=== PATIENT | male | born 1950 | race Caucasian/White ===

== ENCOUNTER → 2016-07-03 | Outpatient (REF) | payer MEDICARE, OTHER ==
[~2016-07-03] MED LIST: BENI20TA5 PO; LIPI10TA PO; METF1000 PO; PERCOCET PO; PROT1TAB2 PO
[2016-07-03 19:47] LABS: BLOOD UREA NITROGEN 17 MG/DL (7-18); CREATININE FOR GFR 0.91 MG/DL (0.70-1.30); GLOMERULAR FILTRATION RATE > 60.0 (>49)
== END ==
LOC: M LABDRAW1 16:30
PROVIDERS: ATTEND Orthopaedic Surgery
DX: M65.812 Other synovitis and tenosynovitis, left shoulder (principal)

== ENCOUNTER 2016-08-07 21:58 | Emergency (ER) | payer MEDICARE, BC, OTHER ==
[2016-08-07 23:02] LABS: BASO % 0.3 % (0.0-1.0); EOS # 0.3 K/mm3 (0.0-0.50); LARGE UNSTAINED CELL # 0.1 K/mm3 (0.0-0.4); LARGE UNSTAINED CELL % 1.2 % (0.0-4.0); LYMPH # 1.9 K/mm3 (1.5-4.5); LYMPH % 18.8 % (24.0-44.0); MEAN CORPUSCULAR HEMOGLOBIN 30.9 pg (27.0-33.0); MEAN CORPUSCULAR HGB CONC 33.7 g/dl (32.0-36.5); MEAN CORPUSCULAR VOLUME 91.7 fl (80.0-96.0); MONO # 0.6 K/mm3 (0.0-0.8); MONO % 6.8 % (0.0-5.0); NEUTROPHILS # 6.5 K/mm3 (1.8-7.7); NEUTROPHILS % 69.8 % (36.0-66.0); PLATELET COUNT, AUTOMATED 286 k/mm3 (150-450); RED CELL DISTRIBUTION WIDTH 12.4 % (11.5-14.5); WHITE BLOOD COUNT 9.3 K/mm3 (4.0-10.0)
[2016-08-07 23:33] LABS: ANION GAP 9 MEQ/L (8-16); BLOOD UREA NITROGEN 14 MG/DL (7-18); CARBON DIOXIDE LEVEL 28 MEQ/L (21-32); CHLORIDE LEVEL 103 MEQ/L (98-107); CREATININE FOR GFR 0.98 MG/DL (0.70-1.30); GLOMERULAR FILTRATION RATE > 60.0 (>49); GLUCOSE, FASTING 103 MG/DL (80-110); POTASSIUM SERUM 4.3 MEQ/L (3.5-5.1); SODIUM LEVEL 140 MEQ/L (136-145)
[2016-08-07] MEDS ORDERED: ISOVUE-370 76% 100ML VIAL (Q9967) As Ordered ONE (23:45)
--- NOTE | 2016-08-08 00:20 | REPUSA ---
CT angiogram of the chest Clinical statement: Chest pain. Technique: Multiple axial CT images were obtained from the thoracic inlet through the upper abdomen a fter a bolus administration of nonionic intravenous contrast. Coronal and sagittal reconstructions we re also obtained. Comparison: none. Findings: The pulmonary arteries are well-opacified with contrast, with no intraluminal filling defec ts to suggest embolism. The thoracic aorta is unremarkable. Thyroid gland is within normal limits. Th ere is an enlarged lymph node in the upper left mediastinum measuring 1.6 x 1.4 cm. Several other sub centimeter lymph nodes are seen within the mediastinum. There are no pericardial or pleural effusions . Minimal interstitial infiltrates are seen at the lung bases bilaterally. Limited imaging of the upp er abdomen is unremarkable. There are no suspicious osseous lesions. Impression: 1. No evidence of pulmonary embolism. 2. Minimal interstitial infiltrates in the lung bases bilaterally, likely representing atelectasis. F ollow-up is recommended as clinically indicated. 3. Single borderline enlarged lymph node in the upper left mediastinum. No other thoracic adenopathy noted. This is a nonspecific finding.
--- NOTE | 2016-08-08 00:30 | REPUSA ---
CT of the abdomen and pelvis with contrast Clinical statement: Pain. Technique: Multiple axial CT images were obtained from the base of the lungs through the floor of the pelvis utilizing 5 mm axial slices after administration of nonionic intravenous contrast. Coronal an d sagittal reconstructions were also obtained. Comparison: 08/10/2014. Findings: Abdomen: The spleen, pancreas, kidneys, gallbladder, and adrenal glands are unremarkable. There is an ill-defined early enhancing focus in the anterior left lobe of the liver, measuring approximately 2. 1 x 2.3 cm. This most likely represents a hemangioma. Borderline enlarged upper abdominal lymph nodes are noted. For example, a portocaval lymph node measures 3.2 x 2.1 cm. A portahepatic lymph node bhumika sures 2.1 x 1.5 cm. The aorta demonstrates moderate soft tissue plaque, without evidence of aneurysm or dissection. There is no evidence of abdominal ascites. There is a periumbilical hernia noted, cont aining only omental fat. Pelvis: The bowel is unremarkable, with no obstructive or inflammatory changes. The urinary bladder i s within normal limits. The other pelvic structures appear grossly intact. There is no evidence of pe lvic lymphadenopathy or ascites. Bones: There are no suspicious osseous abnormalities seen. Impression: 1. No acute findings to explain the patient's pain. 2. Ill-defined early enhancing lesion in the anterior left lobe of the liver, likely representing a c avernous hemangioma. This is stable since the prior study. If there is further clinical concern, ultr asound could be performed. 3. Enlarged portocaval and portahepatic lymph node as described. This is of uncertain clinical signif icance. Follow-up is recommended as clinically indicated. 4. Mild to moderate atherosclerotic changes of the abdominal aorta. 5. Moderate sized periumbilical hernia containing only omental fat. 6. Overall, no significant interval change.
--- NOTE | 2016-08-08 03:32 | EDDOCDS ---
Nurse's Notes [facility] Name: Oz Serrano Age: 65 yrs Sex: Male : 1950 Arrival Date: 08/07/2016 Time: 21:58 Bed 6 Private MD: Iglesia Villatoro MD Diagnosis: Orthostatic hypotension Presentation: 08/07 22:05 Presenting complaint: Patient states: he feels weird, has chest congestion and nn1 tightness. States he felt like he was going to pass out earlier. Reports intermittent tingling of bilateral hands. Reports cold symptoms x 1 week. Aspirin was not taken prior to arrival. Adult Sepsis Screening: The patient does not have new or worsening altered mentation. Patient's respiratory rate is less than 22. Systolic blood pressure is greater than 100. Patient has a qSOFA score of 0- Negative Sepsis Screen. Suicide/Homicide risk assessment- the patient denies having any suicidal and/or homicidal ideations and does not present with any other emotional, behavioral or mental health complaints. Status: Patient is not a service desk lead or dependent. Transition of care: patient was not received from another setting of care. 22:05 Acuity: HELLEN Level 2 nn1 22:05 Method Of Arrival: Walkin/Carried/Asstd nn1 Triage Assessment: 22:10 General: Appears in no apparent distress, comfortable. Pain: Location: mid-sternal area nn1 Pain currently is 1 out of 10 on a pain scale. Quality of pain is described as tightness Pain began 30 min ago Is intermittent. Neurological: Level of Consciousness is awake, alert, obeys commands, Oriented to person, place, time. Cardiovascular: Chest pain is described as mild, radiates Does not radiate. episodes are intermittent began 2129. Respiratory: Airway is patent Respiratory effort is even, unlabored, Respiratory pattern is regular, symmetrical. Derm: Skin is pink, warm & dry. Historical: - Allergies: BLEOMYCINS; Bees; - Home Meds: 1. metformin 500 mg Oral Tb24 4 tabs once daily 2. losartan 50 mg oral tab 1 tab once daily 3. pantoprazole 40 mg oral TbEC 1 tab once daily 4. atorvastatin 10 mg oral tab 1 tab once daily - PMHx: Diabetes - NIDDM: controlled; Hypertension; Hypercholesterolemia; Cancer, Colon; Cancer, Prostate; Hodgkin's Lymphoma; Cancer, Skin; GERD; - PSHx: Colon Resection; Prostatectomy; right testicle removed; - Social history: Smoking status: Patient states was never smoker of tobacco. No barriers to communication noted, The patient speaks fluent Turkish, Speaks appropriately for age. - Family history: No immediate family members are acutely ill. - : The pt / caregiver states he / she is not on anticoagulants. Home medication list is obtained from the patient. - Exposure Risk Screening:: None identified. Screenin:11 Screening information is obtained from the patient. Fall risk: No risks identified. nn1 Assistance ADL's: requires no assistance with activities of daily living. Abuse/DV Screen: The patient / caregiver reports he/she is: not in a situation that causes fear, pain or injury. Nutritional screening: No deficits noted. Advance Directives: Currently, there is no health care proxy. There is no active DNR order. There is no living will. home support is adequate. Assessment: 22:21 General: Appears in no apparent distress, comfortable, Behavior is appropriate for age, nn1 cooperative. Pain: Location: mid-sternal area Pain currently is 1 out of 10 on a pain scale. Neurological: Level of Consciousness is awake, alert, obeys commands, Oriented to person, place, time, Moves all extremities. Gait is steady, Speech is normal, Facial symmetry appears normal. Cardiovascular: Capillary refill < 3 seconds Heart tones S1 S2 present Rhythm is sinus rhythm No ectopy. Respiratory: Airway is patent Respiratory effort is even, unlabored, Respiratory pattern is regular, symmetrical, Breath sounds are clear bilaterally. GI: Abdomen is non- distended Bowel sounds present X 4 quads. Abd is soft and non tender X 4 quads. Denies nausea, vomiting. Derm: Skin is pink, warm & dry. 23:19 General: Dr. Palafox aware that patient is orthostatic. . nn1 08/08 00:32 General: Appears in no apparent distress, comfortable, Behavior is appropriate for age, nn1 cooperative. Neurological: Level of Consciousness is awake, alert, obeys commands, Oriented to person, place, time. Respiratory: Airway is patent Respiratory effort is even, unlabored, Respiratory pattern is regular, symmetrical. Derm: Skin is pink, warm & dry. 01:06 Reassessment: Patient appears in no apparent distress at this time. Patient denies pain nn1 at this time. 01:42 General: Appears in no apparent distress, comfortable, Behavior is appropriate for age, nn1 cooperative. Neurological: Level of Consciousness is awake, alert, obeys commands, Oriented to person, place, time. Respiratory: Airway is patent Respiratory effort is even, unlabored, Respiratory pattern is regular, symmetrical. Derm: Skin is pink, warm & dry. 01:52 General: Patient aware of plan of care at this time, second liter of LR infusing. . nn1 02:23 General: Appears in no apparent distress, comfortable, Behavior is appropriate for age, nn1 cooperative. Pain: Denies pain. Neurological: Level of Consciousness is awake, alert, obeys commands, Oriented to person, place, time. 03:31 General: Appears in no apparent distress, comfortable, Behavior is appropriate for age, nn1 cooperative. Pain: Denies pain. Neurological: Level of Consciousness is awake, alert, obeys commands. Respiratory: Airway is patent Respiratory effort is even, unlabored, Respiratory pattern is regular, symmetrical. Derm: Skin is pink, warm & dry. Vital Signs: 08/07 22:00 BP 195 / 105; Pulse 97; Resp 20; Temp 96.5(O); Pulse Ox 99% on R/A; Weight 90.72 kg kb5 (R); Height 5 ft. 7 in. (170.18 cm); Pain 0/10; 23:18 BP 167 / 84 LA Supine (auto/reg); Pulse 76; nn1 23:18 BP 162 / 95 LA Sitting (auto/reg); Pulse 78; nn1 23:18 BP 142 / 91 LA Standing (auto/reg); Pulse 107; nn1 02 01:41 BP 142 / 81 LA Supine (auto/reg); Pulse 72; nn1 01:41 BP 136 / 86 LA Sitting (auto/reg); Pulse 83; nn1 01:41 BP 123 / 78 LA Standing (auto/reg); Pulse 100; Resp 18; Pulse Ox 97% on R/A; nn1 02:22 Resp 18; Temp 98(TE); nn1 03:20 BP 166 / 84; Pulse 72; Resp 18; Temp 97.2(TE); Pulse Ox 97% on R/A; Pain 0/10; kb5 08/07 22:00 Body Mass Index 31.32 (90.72 kg, 170.18 cm) kb5 Vitals: 08/07 22:00 Log In Time: August 07, 2016 at 21:50. kb5 22:00 RN notified that patient meets Red Flag criteria. kb5 ED Course: 21:59 Patient visited by Cristopher Dickey PCA. kb5 21:59 Patient moved to Waiting kb5 22:00 Iglesia Villatoro is Private Physician. kb5 22:06 Triage Initiated nn1 22:11 Deborah Tejeda RN is Primary Nurse. nn1 22:11 Amada Child RN is Primary Nurse. nn1 22:11 Patient moved to 6 nn1 22:18 Luciano Palafox DO is Attending Physician. mm11 22:18 Patient visited by Luciano Palafox DO. 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 Pulse ox on. NIBP on. nn1 22:43 Patient visited by Manfred Casillas PCA. jmv 22:43 EKG done. (by ED staff). Reviewed by Luciano Palafox DO. jmv 23:01 Inserted saline lock: 20 gauge in left antecubital area and blood collected. The nn1 patient tolerated the procedure well. 23:09 Patient visited by Luciano Palafox DO. mm11 23:15 [facility] Payment Agreement was scanned into [employer] and attached to record. zo 23:22 Patient visited by Siria Domingo RN. nn1 0221 00:32 Patient visited by Siria Domingo RN. nn1 00:41 CT Chest Angio R/O PE Returned. EDMS 00:41 CT ABD & PELVIS: IV Contrast Only Returned. EDMS 00:46 Primary Nurse role handed off by Deborah Tejeda RN sls1 01:06 Patient visited by Siria Domingo RN. nn1 01:37 Patient visited by Luciano Palafox DO. mm11 02:21 CARDIAC MARKER PANEL Sent. nn1 02:23 Patient visited by Siria Domingo RN. nn1 02:25 Patient visited by Manfred Casillas PCA. jmv 02:25 EKG done. (by ED staff). Reviewed by Luciano Palafox DO. jmv 03:02 Patient visited by Luciano Palafox DO. mm11 03:07 Iglesia Villatoro is Referral Physician. mm11 03:20 Patient visited by Cristopher Dickey PCA. kb5 03:31 The patient / caregiver is instructed regarding the plan of care and ED course. nn1 03:31 No procedures done that require assistance. nn1 Administered Medications: 08/07 23:23 Drug: LR 1000 ml [lactated ringers intravenous solution] Route: IV; Rate: bolus; Site: nn1 left antecubital; 08/08 01:50 Drug: LR 1000 ml [lactated ringers intravenous solution] Route: IV; Rate: bolus; Site: nn1 left antecubital; Intake: 03:30 IV: 1800.00ml (LR); Total: 1800.00ml. nn1 Output: 00:32 Urine: 450.00ml (Voided); Total: 450.00ml. nn1 01:52 Urine: 600.00ml (Voided); Total: 1050.00ml. nn1 Order Results: Lab Order: Basic Metabolic Profile; [facility]' 08/07/16 22:55 Test: GLUCOSE, FASTING; Value: 103; Range: 80-110; Units: MG/DL; Status: F Test: BLOOD UREA NITROGEN; Value: 14; Range: 7-18; Units: MG/DL; Status: F Test: CREATININE FOR GFR; Value: 0.98; Range: 0.70-1.30; Units: MG/DL; Status: F Test: GLOMERULAR FILTRATION RATE; Value: > 60.0; Range: >49; Status: F Test: SODIUM LEVEL; Value: 140; Range: 136-145; Units: MEQ/L; Status: F Test: POTASSIUM SERUM; Value: 4.3; Range: 3.5-5.1; Units: MEQ/L; Status: F Test: CHLORIDE LEVEL; Value: 103; Range: 98-107; Units: MEQ/L; Status: F Test: CARBON DIOXIDE LEVEL; Value: 28; Range: 21-32; Units: MEQ/L; Status: F Test: ANION GAP; Value: 9; Range: 8-16; Units: MEQ/L; Status: F Test: CALCIUM LEVEL; Value: 9.0; Range: 8.8-10.2; Units: MG/DL; Status: F Test Note: ; Units are mL/min/1.73 m2 Chronic Kidney Disease Staging per NKF: Stage I & II GFR >=60 Normal to Mildly Decreased Stage III GFR 30-59 Moderately Decreased Stage IV GFR 15-29 Severely Decreased Stage V GFR <15 Very Little GFR Left ESRD GFR <15 on SCIENTIFIC DATABASE CURATOR Lab Order: CBC with Diff; [facility]IA[facility] 08/07/16 22:55 Test: WHITE BLOOD COUNT; Value: 9.3; Range: 4.0-10.0; Units: K/mm3; Status: F Test: RED BLOOD COUNT; Value: 4.59; Range: 4.30-6.10; Units: M/mm3; Status: F Test: HEMOGLOBIN; Value: 14.2; Range: 14.0-18.0; Units: g/dl; Status: F Test: HEMATOCRIT; Value: 42.1; Range: 42.0-52.0; Units: %; Status: F Test: MEAN CORPUSCULAR VOLUME; Value: 91.7; Range: 80.0-96.0; Units: fl; Status: F Test: MEAN CORPUSCULAR HEMOGLOBIN; Value: 30.9; Range: 27.0-33.0; Units: pg; Status: F Test: MEAN CORPUSCULAR HGB CONC; Value: 33.7; Range: 32.0-36.5; Units: g/dl; Status: F Test: RED CELL DISTRIBUTION WIDTH; Value: 12.4; Range: 11.5-14.5; Units: %; Status: F Test: PLATELET COUNT, AUTOMATED; Value: 286; Range: 150-450; Units: k/mm3; Status: F Test: NEUTROPHILS %; Value: 69.8; Range: 36.0-66.0; Abnormal: Above high normal; Units: %; Status: F Test: LYMPH %; Value: 18.8; Range: 24.0-44.0; Abnormal: Below low normal; Units: %; Status: F Test: MONO %; Value: 6.8; Range: 0.0-5.0; Abnormal: Above high normal; Units: %; Status: F Test: EOS %; Value: 3.0; Range: 0.0-3.0; Units: %; Status: F Test: BASO %; Value: 0.3; Range: 0.0-1.0; Units: %; Status: F Test: LARGE UNSTAINED CELL %; Value: 1.2; Range: 0.0-4.0; Units: %; Status: F Test: NEUTROPHILS #; Value: 6.5; Range: 1.8-7.7; Units: K/mm3; Status: F Test: LYMPH #; Value: 1.9; Range: 1.5-4.5; Units: K/mm3; Status: F Test: MONO #; Value: 0.6; Range: 0.0-0.8; Units: K/mm3; Status: F Test: EOS #; Value: 0.3; Range: 0.0-0.50; Units: K/mm3; Status: F Test: BASO #; Value: 0.0; Range: 0.0-0.2; Units: K/mm3; Status: F Test: LARGE UNSTAINED CELL #; Value: 0.1; Range: 0.0-0.4; Units: K/mm3; Status: F Lab Order: Cardiac Injury Profile; SPEC'M 08/07/16 22:55 Test: CPK CREATINE PHOSPHOKINASE; Value: 52; Range: 39-308; Units: U/L; Status: F Test: CK-MB VALUE MASS; Value: 1.0; Range: 0.0-3.6; Units: NG/ML; Status: F Test: MB/CK RELATIVE INDEX; Value: 1.92; Range: < OR =4; Status: F Test Note: ; DIAGNOSIS CRITERIA MMB ng/ml Relative Index (RI) NON-AMI < or = 5 N/A CONDE ZONE > 5 < or = 4 AMI > 5 > 4 Lab Order: Troponin; SPEC'M 08/07/16 22:55 Test: TROPONIN I; Value: < 0.02; Range: < 0.10; Units: NG/ML; Status: F Test Note: ; Troponin I Reference Interval for [employer] LOCI: 99th Percentile= 0.00-0.045 ng/ml Risk Stratification: <= 0.10 ng/ml Decreased Risk for Adverse Clinical Events. 0.10-1.50 ng/ml Increased Risk for Adverse Clinical Events. Evaluation of additional criterion and/or repeat testing in 2-6 hours is suggested to rule out myocardial damage. >= 1.50 ng/ml Indicative of Myocardial Injury. Lab Order: CARDIAC MARKER PANEL; SPEC'M 08/08/16 02:20 Test: CPK CREATINE PHOSPHOKINASE; Value: 45; Range: 39-308; Units: U/L; Status: F Test: CK-MB VALUE MASS; Value: 1.0; Range: 0.0-3.6; Units: NG/ML; Status: F Test: MB/CK RELATIVE INDEX; Value: 2.22; Range: < OR =4; Status: F Test: TROPONIN I; Value: < 0.02; Range: < 0.10; Units: NG/ML; Status: F Test Note: ; DIAGNOSIS CRITERIA MMB ng/ml Relative Index (RI) NON-AMI < or = 5 N/A CONDE ZONE > 5 < or = 4 AMI > 5 > 4 Radiology Order: CT Chest Angio R/O PE Test: CT Chest Angio R/O PE REASON FOR EXAMINATION: Chest Pain; ; CT angiogram of the chest; Clinical statement: Chest pain.; Technique: Multiple axial CT images were obtained from the thoracic inlet through the upper abdomen a; fter a bolus administration of nonionic intravenous contrast. Coronal and sagittal reconstructions we; re also obtained.; Comparison: none.; Findings: The pulmonary arteries are well-opacified with contrast, with no intraluminal filling defec; ts to suggest embolism. The thoracic aorta is unremarkable. Thyroid gland is within normal limits. Th; ere is an enlarged lymph node in the upper left mediastinum measuring 1.6 x 1.4 cm. Several other sub; centimeter lymph nodes are seen within the mediastinum. There are no pericardial or pleural effusions; . Minimal interstitial infiltrates are seen at the lung bases bilaterally. Limited imaging of the upp; er abdomen is unremarkable. There are no suspicious osseous lesions.; Impression:; 1. No evidence of pulmonary embolism.; 2. Minimal interstitial infiltrates in the lung bases bilaterally, likely representing atelectasis. F; ollow-up is recommended as clinically indicated.; 3. Single borderline enlarged lymph node in the upper left mediastinum. No other thoracic adenopathy; noted. This is a nonspecific finding.; ; Radiology Order: CT ABD & PELVIS: IV Contrast Only Test: CT ABD & PELVIS: IV Contrast Only REASON FOR EXAMINATION: EPIGASTRIC PAIN; ; CT of the abdomen and pelvis with contrast; Clinical statement: Pain.; Technique: Multiple axial CT images were obtained from the base of the lungs through the floor of the; pelvis utilizing 5 mm axial slices after administration of nonionic intravenous contrast. Coronal an; d sagittal reconstructions were also obtained.; Comparison: 08/10/2014.; Findings:; Abdomen: The spleen, pancreas, kidneys, gallbladder, and adrenal glands are unremarkable. There is an; ill-defined early enhancing focus in the anterior left lobe of the liver, measuring approximately 2.; 1 x 2.3 cm. This most likely represents a hemangioma. Borderline enlarged upper abdominal lymph nodes; are noted. For example, a portocaval lymph node measures 3.2 x 2.1 cm. A portahepatic lymph node bhumika; sures 2.1 x 1.5 cm. The aorta demonstrates moderate soft tissue plaque, without evidence of aneurysm; or dissection. There is no evidence of abdominal ascites. There is a periumbilical hernia noted, cont; aining only omental fat.; Pelvis: The bowel is unremarkable, with no obstructive or inflammatory changes. The urinary bladder i; s within normal limits. The other pelvic structures appear grossly intact. There is no evidence of pe; lvic lymphadenopathy or ascites.; Bones: There are no suspicious osseous abnormalities seen.; Impression:; 1. No acute findings to explain the patient's pain.; 2. Ill-defined early enhancing lesion in the anterior left lobe of the liver, likely representing a c; avernous hemangioma. This is stable since the prior study. If there is further clinical concern, ultr; asound could be performed.; 3. Enlarged portocaval and portahepatic lymph node as described. This is of uncertain clinical signif; icance. Follow-up is recommended as clinically indicated.; 4. Mild to moderate atherosclerotic changes of the abdominal aorta.; 5. Moderate sized periumbilical hernia containing only omental fat.; 6. Overall, no significant interval change.; ; Outcome: 03:07 Discharge ordered by Provider. mm11 03:30 Discharge Assessment: Patient awake, alert and oriented x 3. No cognitive and/or nn1 functional deficits noted. Patient verbalized understanding of disposition instructions. patient administered narcotics - no. The following High Risk Discharge criteria are identified: None. Discharged to home ambulatory, with significant other. Condition: stable Condition: improved. CT Study completed. Property :Personal belongings accompany Pt. 03:31 Patient left the ED. nn1 Signatures: Dispatcher [employer] EDMS Reece Tuttle Kristopher, HAZARDOUS MATERIALS DRIVER HAZARDOUS MATERIALS DRIVER kb5 Luciano Palafox, DO DO mm11 Aleah Smith, RN RN sls1 Siira Domingo,RN RN nn1 Manfred Casillas, HAZARDOUS MATERIALS DRIVER HAZARDOUS MATERIALS DRIVER jmv MTDD
--- NOTE | 2016-08-08 03:32 | EDDOCDS ---
Physician Documentation [facility] Name: Oz Serrano Age: 65 yrs Sex: Male : 1950 Arrival Date: 08/07/2016 Time: 21:58 Bed 6 Private MD: Iglesia Villatoro MD Disposition: 08/08/16 03:07 Discharged to Home/Self Care. Impression: Orthostatic hypotension. - Condition is Stable. - Discharge Instructions: Orthostatic Hypotension. - Medication Reconciliation, Local Pharmacy Hours form. - Follow up: Iglesia Villatoro; When: Call to arrange an appointment; Reason: Continuance of care. - Problem is an acute exacerbation. - Symptoms have improved. Historical: - Allergies: BLEOMYCINS; Bees; - Home Meds: 1. metformin 500 mg Oral Tb24 4 tabs once daily 2. losartan 50 mg oral tab 1 tab once daily 3. pantoprazole 40 mg oral TbEC 1 tab once daily 4. atorvastatin 10 mg oral tab 1 tab once daily - PMHx: Diabetes - NIDDM: controlled; Hypertension; Hypercholesterolemia; Cancer, Colon; Cancer, Prostate; Hodgkin's Lymphoma; Cancer, Skin; GERD; - PSHx: Colon Resection; Prostatectomy; right testicle removed; - Social history: Smoking status: Patient states was never smoker of tobacco. No barriers to communication noted, The patient speaks fluent Maltese, Speaks appropriately for age. - Family history: No immediate family members are acutely ill. - : The pt / caregiver states he / she is not on anticoagulants. Home medication list is obtained from the patient. - Exposure Risk Screening:: None identified. Vital Signs: 08/07 22:00 BP 195 / 105; Pulse 97; Resp 20; Temp 96.5(O); Pulse Ox 99% on R/A; Weight 90.72 kg / kb5 200 lbs (R); Height 5 ft. 7 in. (170.18 cm); Pain 0/10; 23:18 BP 167 / 84 LA Supine (auto/reg); Pulse 76; nn1 23:18 BP 162 / 95 LA Sitting (auto/reg); Pulse 78; nn1 23:18 BP 142 / 91 LA Standing (auto/reg); Pulse 107; nn1 08/08 01:41 BP 142 / 81 LA Supine (auto/reg); Pulse 72; nn1 01:41 BP 136 / 86 LA Sitting (auto/reg); Pulse 83; nn1 01:41 BP 123 / 78 LA Standing (auto/reg); Pulse 100; Resp 18; Pulse Ox 97% on R/A; nn1 02:22 Resp 18; Temp 98(TE); nn1 03:20 BP 166 / 84; Pulse 72; Resp 18; Temp 97.2(TE); Pulse Ox 97% on R/A; Pain 0/10; kb5 08/07 22:00 Body Mass Index 31.32 (90.72 kg, 170.18 cm) kb5 MDM: 08/07 22:21 ECG WITH READING ER PHYS+CARDIAG ordered. EDMS 22:24 Basketball Referee/Pulse Ox/q 30 min VS ordered. mm11 22:24 IV Saline Lock ordered. mm11 22:24 Rhythm Strip to chart ordered. mm11 22:24 Undress patient appropriately for examination ordered. mm11 22:25 Basic Metabolic Profile Ordered. EDMS 22:25 CBC with Diff Ordered. EDMS 22:25 Cardiac Injury Profile Ordered. EDMS 22:25 Troponin Ordered. EDMS 23:10 Orthostatic VS ordered. mm11 23:13 Financial registration complete. zo 23:15 [facility] Payment Agreement was scanned into [employer] and attached to record. zo 23:17 LR Solution 1000 ml IV at bolus once ordered. mm11 23:17 CBC with Diff Reviewed. mm11 23:38 Basic Metabolic Profile Reviewed. mm11 23:38 Cardiac Injury Profile Reviewed. mm11 23:38 Troponin Reviewed. mm11 23:39 CT Chest Angio R/O PE Ordered. EDMS 23:40 CT ABD & PELVIS: IV Contrast Only Ordered. EDMS 08/08 01:38 Orthostatic VS ordered. mm11 01:38 Redraw CIP &Troponin (put time in details section) ordered. mm11 01:38 Repeat EKG (put time details section) ordered. mm11 01:45 LR Solution 1000 ml IV at bolus once ordered. mm11 02:04 Repeat EKG (put time details section) complete. tmm1 02:05 Redraw CIP &Troponin (put time in details section) complete. tmm1 02:06 ECG WITH READING ER PHYS ordered. EDMS 02:06 CARDIAC MARKER PANEL Ordered. EDMS 02:28 CT Chest Angio R/O PE Reviewed. mm11 02:28 CT ABD & PELVIS: IV Contrast Only Reviewed. mm11 03:01 CARDIAC MARKER PANEL Reviewed. mm11 Administered Medications: 08/07 23:23 Drug: LR 1000 ml [lactated ringers intravenous solution] Route: IV; Rate: bolus; Site: nn1 left antecubital; 08/08 01:50 Drug: LR 1000 ml [lactated ringers intravenous solution] Route: IV; Rate: bolus; Site: nn1 left antecubital; Signatures: Dispatcher [employer] EDMS Reece Tuttle Matthew, DO mm11 McLear, Leslye, BARBER BARBER tmm1 Siria Domingo,RN RN nn1 The chart was reviewed and I authenticate all verbal orders and agree with the evaluation and treatment provided.Attachments: 08/07 23:15 [facility] Payment Agreement zo MTDD
--- NOTE | 2016-08-09 08:22 | ECGEPIP ---
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
--- NOTE | 2016-08-09 08:24 | ECGEPIP ---
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
--- NOTE | 2016-08-10 04:32 | EDDOCDS ---
Nurse's Notes [facility] Name: Pat Serrano Age: 65 yrs Sex: Male : 1950 Arrival Date: 08/07/2016 Time: 21:58 Bed 6 Private MD: Iglesia Villatoro MD Diagnosis: Orthostatic hypotension Presentation: 08/07 22:05 Presenting complaint: Patient states: he feels weird, has chest congestion and nn1 tightness. States he felt like he was going to pass out earlier. Reports intermittent tingling of bilateral hands. Reports cold symptoms x 1 week. Aspirin was not taken prior to arrival. Adult Sepsis Screening: The patient does not have new or worsening altered mentation. Patient's respiratory rate is less than 22. Systolic blood pressure is greater than 100. Patient has a qSOFA score of 0- Negative Sepsis Screen. Suicide/Homicide risk assessment- the patient denies having any suicidal and/or homicidal ideations and does not present with any other emotional, behavioral or mental health complaints. Status: Patient is not a youth services librarian or dependent. Transition of care: patient was not received from another setting of care. 22:05 Acuity: HELLEN Level 2 nn1 22:05 Method Of Arrival: Walkin/Carried/Asstd nn1 Triage Assessment: 22:10 General: Appears in no apparent distress, comfortable. Pain: Location: mid-sternal area nn1 Pain currently is 1 out of 10 on a pain scale. Quality of pain is described as tightness Pain began 30 min ago Is intermittent. Neurological: Level of Consciousness is awake, alert, obeys commands, Oriented to person, place, time. Cardiovascular: Chest pain is described as mild, radiates Does not radiate. episodes are intermittent began 2129. Respiratory: Airway is patent Respiratory effort is even, unlabored, Respiratory pattern is regular, symmetrical. Derm: Skin is pink, warm & dry. Historical: - Allergies: BLEOMYCINS; Bees; - Home Meds: 1. metformin 500 mg Oral Tb24 4 tabs once daily 2. losartan 50 mg oral tab 1 tab once daily 3. pantoprazole 40 mg oral TbEC 1 tab once daily 4. atorvastatin 10 mg oral tab 1 tab once daily - PMHx: Diabetes - NIDDM: controlled; Hypertension; Hypercholesterolemia; Cancer, Colon; Cancer, Prostate; Hodgkin's Lymphoma; Cancer, Skin; GERD; - PSHx: Colon Resection; Prostatectomy; right testicle removed; - Social history: Smoking status: Patient states was never smoker of tobacco. No barriers to communication noted, The patient speaks fluent Kazakh, Speaks appropriately for age. - Family history: No immediate family members are acutely ill. - : The pt / caregiver states he / she is not on anticoagulants. Home medication list is obtained from the patient. - Exposure Risk Screening:: None identified. Screenin:11 Screening information is obtained from the patient. Fall risk: No risks identified. nn1 Assistance ADL's: requires no assistance with activities of daily living. Abuse/DV Screen: The patient / caregiver reports he/she is: not in a situation that causes fear, pain or injury. Nutritional screening: No deficits noted. Advance Directives: Currently, there is no health care proxy. There is no active DNR order. There is no living will. home support is adequate. Assessment: 22:21 General: Appears in no apparent distress, comfortable, Behavior is appropriate for age, nn1 cooperative. Pain: Location: mid-sternal area Pain currently is 1 out of 10 on a pain scale. Neurological: Level of Consciousness is awake, alert, obeys commands, Oriented to person, place, time, Moves all extremities. Gait is steady, Speech is normal, Facial symmetry appears normal. Cardiovascular: Capillary refill < 3 seconds Heart tones S1 S2 present Rhythm is sinus rhythm No ectopy. Respiratory: Airway is patent Respiratory effort is even, unlabored, Respiratory pattern is regular, symmetrical, Breath sounds are clear bilaterally. GI: Abdomen is non- distended Bowel sounds present X 4 quads. Abd is soft and non tender X 4 quads. Denies nausea, vomiting. Derm: Skin is pink, warm & dry. 23:19 General: Dr. Palafox aware that patient is orthostatic. . nn1 08/08 00:32 General: Appears in no apparent distress, comfortable, Behavior is appropriate for age, nn1 cooperative. Neurological: Level of Consciousness is awake, alert, obeys commands, Oriented to person, place, time. Respiratory: Airway is patent Respiratory effort is even, unlabored, Respiratory pattern is regular, symmetrical. Derm: Skin is pink, warm & dry. 01:06 Reassessment: Patient appears in no apparent distress at this time. Patient denies pain nn1 at this time. 01:42 General: Appears in no apparent distress, comfortable, Behavior is appropriate for age, nn1 cooperative. Neurological: Level of Consciousness is awake, alert, obeys commands, Oriented to person, place, time. Respiratory: Airway is patent Respiratory effort is even, unlabored, Respiratory pattern is regular, symmetrical. Derm: Skin is pink, warm & dry. 01:52 General: Patient aware of plan of care at this time, second liter of LR infusing. . nn1 02:23 General: Appears in no apparent distress, comfortable, Behavior is appropriate for age, nn1 cooperative. Pain: Denies pain. Neurological: Level of Consciousness is awake, alert, obeys commands, Oriented to person, place, time. 03:31 General: Appears in no apparent distress, comfortable, Behavior is appropriate for age, nn1 cooperative. Pain: Denies pain. Neurological: Level of Consciousness is awake, alert, obeys commands. Respiratory: Airway is patent Respiratory effort is even, unlabored, Respiratory pattern is regular, symmetrical. Derm: Skin is pink, warm & dry. Vital Signs: 08/07 22:00 BP 195 / 105; Pulse 97; Resp 20; Temp 96.5(O); Pulse Ox 99% on R/A; Weight 90.72 kg kb5 (R); Height 5 ft. 7 in. (170.18 cm); Pain 0/10; 23:18 BP 167 / 84 LA Supine (auto/reg); Pulse 76; nn1 23:18 BP 162 / 95 LA Sitting (auto/reg); Pulse 78; nn1 23:18 BP 142 / 91 LA Standing (auto/reg); Pulse 107; nn1 02 01:41 BP 142 / 81 LA Supine (auto/reg); Pulse 72; nn1 01:41 BP 136 / 86 LA Sitting (auto/reg); Pulse 83; nn1 01:41 BP 123 / 78 LA Standing (auto/reg); Pulse 100; Resp 18; Pulse Ox 97% on R/A; nn1 02:22 Resp 18; Temp 98(TE); nn1 03:20 BP 166 / 84; Pulse 72; Resp 18; Temp 97.2(TE); Pulse Ox 97% on R/A; Pain 0/10; kb5 08/07 22:00 Body Mass Index 31.32 (90.72 kg, 170.18 cm) kb5 Vitals: 08/07 22:00 Log In Time: August 07, 2016 at 21:50. kb5 22:00 RN notified that patient meets Red Flag criteria. kb5 ED Course: 21:59 Patient visited by Cristopher Dickey PCA. kb5 21:59 Patient moved to Waiting kb5 22:00 Iglesia Villatoro is Private Physician. kb5 22:06 Triage Initiated nn1 22:11 Deborah Tejeda RN is Primary Nurse. nn1 22:11 Amada Child RN is Primary Nurse. nn1 22:11 Patient moved to 6 nn1 22:18 Fatemeh Palafox DO is Attending Physician. mm11 22:18 Patient visited by Fatemeh Palafox DO. mm11 22:22 logistics engineer on. Pulse ox on. NIBP on. nn1 22:43 Patient visited by Manfred Casillas PCA. jmv 22:43 EKG done. (by ED staff). Reviewed by Fatemeh Palafox DO. jmv 23:01 Inserted saline lock: 20 gauge in left antecubital area and blood collected. The nn1 patient tolerated the procedure well. 23:09 Patient visited by Fatemeh Palafox DO. mm11 23:15 [facility] Payment Agreement was scanned into [employer] and attached to record. zo 23:22 Patient visited by Siria Domingo RN. nn1 0221 00:32 Patient visited by Siria Domingo RN. nn1 00:41 CT Chest Angio R/O PE Returned. EDMS 00:41 CT ABD & PELVIS: IV Contrast Only Returned. EDMS 00:46 Primary Nurse role handed off by Deborah Tejeda RN sls1 01:06 Patient visited by Siria Domingo RN. nn1 01:37 Patient visited by Fatemeh Palafox DO. mm11 02:21 CARDIAC MARKER PANEL Sent. nn1 02:23 Patient visited by Siria Domingo RN. nn1 02:25 Patient visited by Manfred Casillas PCA. jmv 02:25 EKG done. (by ED staff). Reviewed by Fatemeh Palafox DO. jmv 03:02 Patient visited by Fatemeh Palafox DO. mm11 03:07 Iglesia Villatoro is Referral Physician. mm11 03:20 Patient visited by Cristopher Dickey PCA. kb5 03:31 The patient / caregiver is instructed regarding the plan of care and ED course. nn1 03:31 No procedures done that require assistance. nn1 10:36 T-Sheet-- Draft Copy was scanned into [employer] and attached to record. gb 10:37 ECG/EKG was scanned into [employer] and attached to record. gb 08/09 08:41 EKG-ADULT Returned. EDMS 08:41 ECG WITH READING ER PHYS Returned. EDMS Administered Medications: 08/07 23:23 Drug: LR 1000 ml [lactated ringers intravenous solution] Route: IV; Rate: bolus; Site: nn left antecubital; 08/08 01:50 Drug: LR 1000 ml [lactated ringers intravenous solution] Route: IV; Rate: bolus; Site: nn left antecubital; Intake: 03:30 IV: 1800.00ml (LR); Total: 1800.00ml. nn1 Output: 00:32 Urine: 450.00ml (Voided); Total: 450.00ml. nn1 01:52 Urine: 600.00ml (Voided); Total: 1050.00ml. nn1 Order Results: Lab Order: Basic Metabolic Profile; SPEC'M 08/07/16 22:55 Test: GLUCOSE, FASTING; Value: 103; Range: 80-110; Units: MG/DL; Status: F Test: BLOOD UREA NITROGEN; Value: 14; Range: 7-18; Units: MG/DL; Status: F Test: CREATININE FOR GFR; Value: 0.98; Range: 0.70-1.30; Units: MG/DL; Status: F Test: GLOMERULAR FILTRATION RATE; Value: > 60.0; Range: >49; Status: F Test: SODIUM LEVEL; Value: 140; Range: 136-145; Units: MEQ/L; Status: F Test: POTASSIUM SERUM; Value: 4.3; Range: 3.5-5.1; Units: MEQ/L; Status: F Test: CHLORIDE LEVEL; Value: 103; Range: 98-107; Units: MEQ/L; Status: F Test: CARBON DIOXIDE LEVEL; Value: 28; Range: 21-32; Units: MEQ/L; Status: F Test: ANION GAP; Value: 9; Range: 8-16; Units: MEQ/L; Status: F Test: CALCIUM LEVEL; Value: 9.0; Range: 8.8-10.2; Units: MG/DL; Status: F Test Note: ; Units are mL/min/1.73 m2 Chronic Kidney Disease Staging per NKF: Stage I & II GFR >=60 Normal to Mildly Decreased Stage III GFR 30-59 Moderately Decreased Stage IV GFR 15-29 Severely Decreased Stage V GFR <15 Very Little GFR Left ESRD GFR <15 on CONTRACT ASSOCIATE Lab Order: CBC with Diff; SPEC'M 08/07/16 22:55 Test: WHITE BLOOD COUNT; Value: 9.3; Range: 4.0-10.0; Units: K/mm3; Status: F Test: RED BLOOD COUNT; Value: 4.59; Range: 4.30-6.10; Units: M/mm3; Status: F Test: HEMOGLOBIN; Value: 14.2; Range: 14.0-18.0; Units: g/dl; Status: F Test: HEMATOCRIT; Value: 42.1; Range: 42.0-52.0; Units: %; Status: F Test: MEAN CORPUSCULAR VOLUME; Value: 91.7; Range: 80.0-96.0; Units: fl; Status: F Test: MEAN CORPUSCULAR HEMOGLOBIN; Value: 30.9; Range: 27.0-33.0; Units: pg; Status: F Test: MEAN CORPUSCULAR HGB CONC; Value: 33.7; Range: 32.0-36.5; Units: g/dl; Status: F Test: RED CELL DISTRIBUTION WIDTH; Value: 12.4; Range: 11.5-14.5; Units: %; Status: F Test: PLATELET COUNT, AUTOMATED; Value: 286; Range: 150-450; Units: k/mm3; Status: F Test: NEUTROPHILS %; Value: 69.8; Range: 36.0-66.0; Abnormal: Above high normal; Units: %; Status: F Test: LYMPH %; Value: 18.8; Range: 24.0-44.0; Abnormal: Below low normal; Units: %; Status: F Test: MONO %; Value: 6.8; Range: 0.0-5.0; Abnormal: Above high normal; Units: %; Status: F Test: EOS %; Value: 3.0; Range: 0.0-3.0; Units: %; Status: F Test: BASO %; Value: 0.3; Range: 0.0-1.0; Units: %; Status: F Test: LARGE UNSTAINED CELL %; Value: 1.2; Range: 0.0-4.0; Units: %; Status: F Test: NEUTROPHILS #; Value: 6.5; Range: 1.8-7.7; Units: K/mm3; Status: F Test: LYMPH #; Value: 1.9; Range: 1.5-4.5; Units: K/mm3; Status: F Test: MONO #; Value: 0.6; Range: 0.0-0.8; Units: K/mm3; Status: F Test: EOS #; Value: 0.3; Range: 0.0-0.50; Units: K/mm3; Status: F Test: BASO #; Value: 0.0; Range: 0.0-0.2; Units: K/mm3; Status: F Test: LARGE UNSTAINED CELL #; Value: 0.1; Range: 0.0-0.4; Units: K/mm3; Status: F Lab Order: Cardiac Injury Profile; SPEC' 08/07/16 22:55 Test: CPK CREATINE PHOSPHOKINASE; Value: 52; Range: 39-308; Units: U/L; Status: F Test: CK-MB VALUE MASS; Value: 1.0; Range: 0.0-3.6; Units: NG/ML; Status: F Test: MB/CK RELATIVE INDEX; Value: 1.92; Range: < OR =4; Status: F Test Note: ; DIAGNOSIS CRITERIA MMB ng/ml Relative Index (RI) NON-AMI < or = 5 N/A CONDE ZONE > 5 < or = 4 AMI > 5 > 4 Lab Order: Troponin; SPEC' 08/07/16 22:55 Test: TROPONIN I; Value: < 0.02; Range: < 0.10; Units: NG/ML; Status: F Test Note: ; Troponin I Reference Interval for [employer] [place] LOCI: 99th Percentile= 0.00-0.045 ng/ml Risk Stratification: <= 0.10 ng/ml Decreased Risk for Adverse Clinical Events. 0.10-1.50 ng/ml Increased Risk for Adverse Clinical Events. Evaluation of additional criterion and/or repeat testing in 2-6 hours is suggested to rule out myocardial damage. >= 1.50 ng/ml Indicative of Myocardial Injury. Lab Order: CARDIAC MARKER PANEL; SPEC'M 08/08/16 02:20 Test: CPK CREATINE PHOSPHOKINASE; Value: 45; Range: 39-308; Units: U/L; Status: F Test: CK-MB VALUE MASS; Value: 1.0; Range: 0.0-3.6; Units: NG/ML; Status: F Test: MB/CK RELATIVE INDEX; Value: 2.22; Range: < OR =4; Status: F Test: TROPONIN I; Value: < 0.02; Range: < 0.10; Units: NG/ML; Status: F Test Note: ; DIAGNOSIS CRITERIA MMB ng/ml Relative Index (RI) NON-AMI < or = 5 N/A CONDE ZONE > 5 < or = 4 AMI > 5 > 4 Radiology Order: EKG-ADULT Test: EKG-ADULT REASON FOR EXAMINATION: Chest Pain; Stationary ECG Study; 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; : 1950 Requested By: FATEMEH Torres; Order Number: [id number] Reading MD: Yaquelin Lao; Measurements; Intervals [place]; Rate: 76 P: -10; PA: 147 QRS: -17; QRSD: 90 T: -1; QT: 363; QTc: 408; Interpretive Statements; SINUS RHYTHM; VOLTAGE CRITERIA FOR LVH; INCREASED RATE 10/20/13; Electronically Signed On 08-09-2016 8:21:31 EST by Yaquelin Lao; Radiology Order: CT Chest Angio R/O PE Test: CT Chest Angio R/O PE REASON FOR EXAMINATION: Chest Pain; ; CT angiogram of the chest; Clinical statement: Chest pain.; Technique: Multiple axial CT images were obtained from the thoracic inlet through the upper abdomen a; fter a bolus administration of nonionic intravenous contrast. Coronal and sagittal reconstructions we; re also obtained.; Comparison: none.; Findings: The pulmonary arteries are well-opacified with contrast, with no intraluminal filling defec; ts to suggest embolism. The thoracic aorta is unremarkable. Thyroid gland is within normal limits. Th; ere is an enlarged lymph node in the upper left mediastinum measuring 1.6 x 1.4 cm. Several other sub; centimeter lymph nodes are seen within the mediastinum. There are no pericardial or pleural effusions; . Minimal interstitial infiltrates are seen at the lung bases bilaterally. Limited imaging of the upp; er abdomen is unremarkable. There are no suspicious osseous lesions.; Impression:; 1. No evidence of pulmonary embolism.; 2. Minimal interstitial infiltrates in the lung bases bilaterally, likely representing atelectasis. F; ollow-up is recommended as clinically indicated.; 3. Single borderline enlarged lymph node in the upper left mediastinum. No other thoracic adenopathy; noted. This is a nonspecific finding.; ; Radiology Order: CT ABD & PELVIS: IV Contrast Only Test: CT ABD & PELVIS: IV Contrast Only REASON FOR EXAMINATION: EPIGASTRIC PAIN; ; CT of the abdomen and pelvis with contrast; Clinical statement: Pain.; Technique: Multiple axial CT images were obtained from the base of the lungs through the floor of the; pelvis utilizing 5 mm axial slices after administration of nonionic intravenous contrast. Coronal an; d sagittal reconstructions were also obtained.; Comparison: 08/10/2014.; Findings:; Abdomen: The spleen, pancreas, kidneys, gallbladder, and adrenal glands are unremarkable. There is an; ill-defined early enhancing focus in the anterior left lobe of the liver, measuring approximately 2.; 1 x 2.3 cm. This most likely represents a hemangioma. Borderline enlarged upper abdominal lymph nodes; are noted. For example, a portocaval lymph node measures 3.2 x 2.1 cm. A portahepatic lymph node bhumika; sures 2.1 x 1.5 cm. The aorta demonstrates moderate soft tissue plaque, without evidence of aneurysm; or dissection. There is no evidence of abdominal ascites. There is a periumbilical hernia noted, cont; aining only omental fat.; Pelvis: The bowel is unremarkable, with no obstructive or inflammatory changes. The urinary bladder i; s within normal limits. The other pelvic structures appear grossly intact. There is no evidence of pe; lvic lymphadenopathy or ascites.; Bones: There are no suspicious osseous abnormalities seen.; Impression:; 1. No acute findings to explain the patient's pain.; 2. Ill-defined early enhancing lesion in the anterior left lobe of the liver, likely representing a c; avernous hemangioma. This is stable since the prior study. If there is further clinical concern, ultr; asound could be performed.; 3. Enlarged portocaval and portahepatic lymph node as described. This is of uncertain clinical signif; icance. Follow-up is recommended as clinically indicated.; 4. Mild to moderate atherosclerotic changes of the abdominal aorta.; 5. Moderate sized periumbilical hernia containing only omental fat.; 6. Overall, no significant interval change.; ; Radiology Order: ECG WITH READING ER PHYS Test: ECG WITH READING ER PHYS REASON FOR EXAMINATION: CHEST TIGHTNESS; Stationary ECG Study; 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 mm11 03:30 Discharge Assessment: Patient awake, alert and oriented x 3. No cognitive and/or nn1 functional deficits noted. Patient verbalized understanding of disposition instructions. patient administered narcotics - no. The following High Risk Discharge criteria are identified: None. Discharged to home ambulatory, with significant other. Condition: stable Condition: improved. CT Study completed. Property :Personal belongings accompany Pt. 03:31 Patient left the ED. nn1 Signatures: Dispatcher [employer] EDMS Michelle Gold, Reg Reg gb Reece Ttutle Kristopher, SUPERVISOR LEAF SPRING REPAIR SUPERVISOR LEAF SPRING REPAIR kb5 Fatemeh Palafox, DO DO mm11 Aleah Smith RN RN sls1 Siria Domingo,RN RN nn1 Manfred Casillas, SUPERVISOR LEAF SPRING REPAIR SUPERVISOR LEAF SPRING REPAIR jmv Chart Complete MTDD
--- NOTE | 2016-08-10 04:32 | EDDOCDS ---
Physician Documentation [facility] Name: Oz Serrano Age: 65 yrs Sex: Male : 1950 Arrival Date: 08/07/2016 Time: 21:58 Bed 6 Private MD: Iglesia Villatoro MD Disposition: 08/08/16 03:07 Discharged to Home/Self Care. Impression: Orthostatic hypotension. - Condition is Stable. - Discharge Instructions: Orthostatic Hypotension. - Medication Reconciliation, Local Pharmacy Hours form. - Follow up: Iglesia Villatoro; When: Call to arrange an appointment; Reason: Continuance of care. - Problem is an acute exacerbation. - Symptoms have improved. Historical: - Allergies: BLEOMYCINS; Bees; - Home Meds: 1. metformin 500 mg Oral Tb24 4 tabs once daily 2. losartan 50 mg oral tab 1 tab once daily 3. pantoprazole 40 mg oral TbEC 1 tab once daily 4. atorvastatin 10 mg oral tab 1 tab once daily - PMHx: Diabetes - NIDDM: controlled; Hypertension; Hypercholesterolemia; Cancer, Colon; Cancer, Prostate; Hodgkin's Lymphoma; Cancer, Skin; GERD; - PSHx: Colon Resection; Prostatectomy; right testicle removed; - Social history: Smoking status: Patient states was never smoker of tobacco. No barriers to communication noted, The patient speaks fluent Gambian, Speaks appropriately for age. - Family history: No immediate family members are acutely ill. - : The pt / caregiver states he / she is not on anticoagulants. Home medication list is obtained from the patient. - Exposure Risk Screening:: None identified. Vital Signs: 08/07 22:00 BP 195 / 105; Pulse 97; Resp 20; Temp 96.5(O); Pulse Ox 99% on R/A; Weight 90.72 kg / kb5 200 lbs (R); Height 5 ft. 7 in. (170.18 cm); Pain 0/10; 23:18 BP 167 / 84 LA Supine (auto/reg); Pulse 76; nn1 23:18 BP 162 / 95 LA Sitting (auto/reg); Pulse 78; nn1 23:18 BP 142 / 91 LA Standing (auto/reg); Pulse 107; nn1 08/08 01:41 BP 142 / 81 LA Supine (auto/reg); Pulse 72; nn1 01:41 BP 136 / 86 LA Sitting (auto/reg); Pulse 83; nn1 01:41 BP 123 / 78 LA Standing (auto/reg); Pulse 100; Resp 18; Pulse Ox 97% on R/A; nn1 02:22 Resp 18; Temp 98(TE); nn1 03:20 BP 166 / 84; Pulse 72; Resp 18; Temp 97.2(TE); Pulse Ox 97% on R/A; Pain 0/10; kb5 08/07 22:00 Body Mass Index 31.32 (90.72 kg, 170.18 cm) kb5 MDM: 08/07 22:21 ECG WITH READING ER PHYS+CARDIAG ordered. EDMS 22:24 Technician Assistant/Pulse Ox/q 30 min VS ordered. mm11 22:24 IV Saline Lock ordered. mm11 22:24 Rhythm Strip to chart ordered. mm11 22:24 Undress patient appropriately for examination ordered. mm11 22:25 Basic Metabolic Profile Ordered. EDMS 22:25 CBC with Diff Ordered. EDMS 22:25 Cardiac Injury Profile Ordered. EDMS 22:25 Troponin Ordered. EDMS 23:10 Orthostatic VS ordered. mm11 23:13 Financial registration complete. zo 23:15 [facility] [place] Payment Agreement was scanned into [employer] and attached to record. zo 23:17 LR Solution 1000 ml IV at bolus once ordered. mm11 23:17 CBC with Diff Reviewed. mm11 23:38 Basic Metabolic Profile Reviewed. mm11 23:38 Cardiac Injury Profile Reviewed. mm11 23:38 Troponin Reviewed. mm11 23:39 CT Chest Angio R/O PE Ordered. EDMS 23:40 CT ABD & PELVIS: IV Contrast Only Ordered. EDMS 08/08 01:38 Orthostatic VS ordered. mm11 01:38 Redraw CIP &Troponin (put time in details section) ordered. mm11 01:38 Repeat EKG (put time details section) ordered. mm11 01:45 LR Solution 1000 ml IV at bolus once ordered. mm11 02:04 Repeat EKG (put time details section) complete. tmm1 02:05 Redraw CIP &Troponin (put time in details section) complete. tmm1 02:06 ECG WITH READING ER PHYS ordered. EDMS 02:06 CARDIAC MARKER PANEL Ordered. EDMS 02:28 CT Chest Angio R/O PE Reviewed. mm11 02:28 CT ABD & PELVIS: IV Contrast Only Reviewed. mm11 03:01 CARDIAC MARKER PANEL Reviewed. mm11 10:36 T-Sheet-- Draft Copy was scanned into [employer] and attached to record. gb 10:37 ECG/EKG was scanned into [employer] and attached to record. gb 08/09 09:48 Disposition: radiology report faxed to Dr. Gee. sd1 Administered Medications: 08/07 23:23 Drug: LR 1000 ml [lactated ringers intravenous solution] Route: IV; Rate: bolus; Site: nn1 left antecubital; 08/08 01:50 Drug: LR 1000 ml [lactated ringers intravenous solution] Route: IV; Rate: bolus; Site: nn1 left antecubital; Signatures: Dispatcher [employer] EDMS Yaquelin Lao MD MD sd1 Michelle Gold, Issac Reg gb Parag, Luciano Calabrese, DO CARBAJAL mm11 Jeff, Leslye, VAT SKIMMER VAT SKIMMER tmm1 Siria Domingo,RN RN nn1 The chart was reviewed and I authenticate all verbal orders and agree with the evaluation and treatment provided.Attachments: 08/07 23:15 [facility] [place] Payment Agreement zo 08/08 10:36 T-Sheet-- Draft Copy gb 10:37 ECG/EKG gb Chart Complete MTDD
--- NOTE | 2016-08-10 04:32 | EDDOCDS ---
Physician Documentation [facility] Name: Oz Serrano Age: 65 yrs Sex: Male : 1950 Arrival Date: 08/07/2016 Time: 21:58 Bed 6 Private MD: Iglesia Villatoro MD Disposition: 08/08/16 03:07 Discharged to Home/Self Care. Impression: Orthostatic hypotension. - Condition is Stable. - Discharge Instructions: Orthostatic Hypotension. - Medication Reconciliation, Local Pharmacy Hours form. - Follow up: Iglesia Villatoro; When: Call to arrange an appointment; Reason: Continuance of care. - Problem is an acute exacerbation. - Symptoms have improved. Historical: - Allergies: BLEOMYCINS; Bees; - Home Meds: 1. metformin 500 mg Oral Tb24 4 tabs once daily 2. losartan 50 mg oral tab 1 tab once daily 3. pantoprazole 40 mg oral TbEC 1 tab once daily 4. atorvastatin 10 mg oral tab 1 tab once daily - PMHx: Diabetes - NIDDM: controlled; Hypertension; Hypercholesterolemia; Cancer, Colon; Cancer, Prostate; Hodgkin's Lymphoma; Cancer, Skin; GERD; - PSHx: Colon Resection; Prostatectomy; right testicle removed; - Social history: Smoking status: Patient states was never smoker of tobacco. No barriers to communication noted, The patient speaks fluent Portuguese, Speaks appropriately for age. - Family history: No immediate family members are acutely ill. - : The pt / caregiver states he / she is not on anticoagulants. Home medication list is obtained from the patient. - Exposure Risk Screening:: None identified. Vital Signs: 08/07 22:00 BP 195 / 105; Pulse 97; Resp 20; Temp 96.5(O); Pulse Ox 99% on R/A; Weight 90.72 kg / kb5 200 lbs (R); Height 5 ft. 7 in. (170.18 cm); Pain 0/10; 23:18 BP 167 / 84 LA Supine (auto/reg); Pulse 76; nn1 23:18 BP 162 / 95 LA Sitting (auto/reg); Pulse 78; nn1 23:18 BP 142 / 91 LA Standing (auto/reg); Pulse 107; nn1 08/08 01:41 BP 142 / 81 LA Supine (auto/reg); Pulse 72; nn1 01:41 BP 136 / 86 LA Sitting (auto/reg); Pulse 83; nn1 01:41 BP 123 / 78 LA Standing (auto/reg); Pulse 100; Resp 18; Pulse Ox 97% on R/A; nn1 02:22 Resp 18; Temp 98(TE); nn1 03:20 BP 166 / 84; Pulse 72; Resp 18; Temp 97.2(TE); Pulse Ox 97% on R/A; Pain 0/10; kb5 08/07 22:00 Body Mass Index 31.32 (90.72 kg, 170.18 cm) kb5 MDM: 08/07 22:21 ECG WITH READING ER PHYS+CARDIAG ordered. EDMS 22:24 Window/Distribution Clerk/Pulse Ox/q 30 min VS ordered. mm11 22:24 IV Saline Lock ordered. mm11 22:24 Rhythm Strip to chart ordered. mm11 22:24 Undress patient appropriately for examination ordered. mm11 22:25 Basic Metabolic Profile Ordered. EDMS 22:25 CBC with Diff Ordered. EDMS 22:25 Cardiac Injury Profile Ordered. EDMS 22:25 Troponin Ordered. EDMS 23:10 Orthostatic VS ordered. mm11 23:13 Financial registration complete. zo 23:15 [facility] [place] Payment Agreement was scanned into [employer] and attached to record. zo 23:17 LR Solution 1000 ml IV at bolus once ordered. mm11 23:17 CBC with Diff Reviewed. mm11 23:38 Basic Metabolic Profile Reviewed. mm11 23:38 Cardiac Injury Profile Reviewed. mm11 23:38 Troponin Reviewed. mm11 23:39 CT Chest Angio R/O PE Ordered. EDMS 23:40 CT ABD & PELVIS: IV Contrast Only Ordered. EDMS 08/08 01:38 Orthostatic VS ordered. mm11 01:38 Redraw CIP &Troponin (put time in details section) ordered. mm11 01:38 Repeat EKG (put time details section) ordered. mm11 01:45 LR Solution 1000 ml IV at bolus once ordered. mm11 02:04 Repeat EKG (put time details section) complete. tmm1 02:05 Redraw CIP &Troponin (put time in details section) complete. tmm1 02:06 ECG WITH READING ER PHYS ordered. EDMS 02:06 CARDIAC MARKER PANEL Ordered. EDMS 02:28 CT Chest Angio R/O PE Reviewed. mm11 02:28 CT ABD & PELVIS: IV Contrast Only Reviewed. mm11 03:01 CARDIAC MARKER PANEL Reviewed. mm11 10:36 T-Sheet-- Draft Copy was scanned into [employer] and attached to record. gb 10:37 ECG/EKG was scanned into [employer] and attached to record. gb 08/09 09:48 Disposition: radiology report faxed to Dr. Gee. sd1 Administered Medications: 08/07 23:23 Drug: LR 1000 ml [lactated ringers intravenous solution] Route: IV; Rate: bolus; Site: nn1 left antecubital; 08/08 01:50 Drug: LR 1000 ml [lactated ringers intravenous solution] Route: IV; Rate: bolus; Site: nn1 left antecubital; Signatures: Dispatcher [employer] EDMS Yaquelin Lao MD MD sd1 Michelle Gold, Issac Reg gb Parag, Luciano Calabrese, DO CARBAJAL mm11 Jeff, Leslye, SHOWER ENCLOSURE INSTALLER SHOWER ENCLOSURE INSTALLER tmm1 Siria Domingo,RN RN nn1 The chart was reviewed and I authenticate all verbal orders and agree with the evaluation and treatment provided.Attachments: 08/07 23:15 [facility] [place] Payment Agreement zo 08/08 10:36 T-Sheet-- Draft Copy gb 10:37 ECG/EKG gb Chart Complete MTDD
== END 2016-08-08 03:31 | disposition home or self-care (01) ==
LOC: M ED 21:58
DX: I95.1 Orthostatic hypotension (principal); E11.9 Type 2 diabetes mellitus without complications; I10 Essential (primary) hypertension; E78.00 Pure hypercholesterolemia, unspecified; K21.9 Gastro-esophageal reflux disease without esophagitis; Z85.038 Personal history of other malignant neoplasm of large intestine; Z85.46 Personal history of malignant neoplasm of prostate; Z85.828 Personal history of other malignant neoplasm of skin; Z85.71 Personal history of Hodgkin lymphoma; Z79.84 Long term (current) use of oral hypoglycemic drugs; Z79.899 Other long term (current) drug therapy; Z91.030 Bee allergy status; Z88.8 Allergy status to other drugs, medicaments and biological substances
CPT/HCPCS: 36415; 71275; 74177; 80048; 82550; 82553; 84484; 85025; 93005; 93041; 99285; Q9967

== ENCOUNTER → 2016-10-10 | Outpatient (REF) | payer MEDICARE, OTHER | LOC: M LABDRAW1 15:35 | PROVIDERS: ATTEND Physician Assistant | DX: C61 Malignant neoplasm of prostate (principal) ==

== ENCOUNTER → 2016-12-22 | Outpatient (CLI) | payer MEDICARE, OTHER ==
[~2016-12-22] MED LIST changes: +BENI1TAB PO; -BENI20TA5 PO; -METF1000 PO; +METF10004 PO
[2016-12-22 08:13] LABS: ANION GAP 6 MEQ/L (8-16); BLOOD UREA NITROGEN 13 MG/DL (7-18); CALCIUM LEVEL 8.9 MG/DL (8.8-10.2); CARBON DIOXIDE LEVEL 29 MEQ/L (21-32); CHLORIDE LEVEL 105 MEQ/L (98-107); CREATININE FOR GFR 0.94 MG/DL (0.70-1.30); GLOMERULAR FILTRATION RATE > 60.0 (>49); GLUCOSE, FASTING 115 MG/DL (80-110); POTASSIUM SERUM 4.1 MEQ/L (3.5-5.1); SODIUM LEVEL 140 MEQ/L (136-145)
== END ==
LOC: M LAB 07:15
PROVIDERS: ATTEND Family Medicine
DX: R73.03 Prediabetes (principal)

== ENCOUNTER → 2017-05-01 | Outpatient (REF) | payer MEDICARE, OTHER | LOC: M LABDRAW1 15:41 | PROVIDERS: ATTEND Registered Nurse Emergency | DX: C61 Malignant neoplasm of prostate (principal) ==

== ENCOUNTER → 2017-05-17 | Outpatient (REF) | payer MEDICARE, OTHER ==
[2017-05-17 12:56] LABS: MEAN CORPUSCULAR HEMOGLOBIN 29.9 pg (27.0-33.0); MEAN CORPUSCULAR HGB CONC 32.3 g/dl (32.0-36.5); MEAN CORPUSCULAR VOLUME 92.6 fl (80.0-96.0); PLATELET COUNT, AUTOMATED 270 10^3/uL (150-450); RED CELL DISTRIBUTION WIDTH 12.4 % (11.5-14.5); WHITE BLOOD COUNT 7.2 10^3/uL (4.0-10.0)
[2017-05-17 13:27] LABS: ALBUMIN 3.6 GM/DL (3.2-5.2); ALBUMIN/GLOBULIN RATIO 1.06 (1.00-1.93); ALKALINE PHOSPHATASE 66 U/L (45-117); ALT/SGPT 17 U/L (12-78); ANION GAP 6 MEQ/L (8-16); AST/SGOT 15 U/L (7-37); BILIRUBIN,TOTAL 0.5 MG/DL (0.2-1.0); BLOOD UREA NITROGEN 16 MG/DL (7-18); CALCIUM LEVEL 8.9 MG/DL (8.8-10.2); CARBON DIOXIDE LEVEL 31 MEQ/L (21-32); CHLORIDE LEVEL 102 MEQ/L (98-107); CHOLESTEROL LEVEL 126 MG/DL (<200); CREATININE FOR GFR 0.87 MG/DL (0.70-1.30); GLOMERULAR FILTRATION RATE > 60.0 (>49); GLUCOSE, FASTING 96 MG/DL (80-110); POTASSIUM SERUM 4.1 MEQ/L (3.5-5.1); SODIUM LEVEL 139 MEQ/L (136-145); TRIGLYCERIDES LEVEL 83 MG/DL (<150)
== END ==
LOC: M LABDRAW1 11:01
PROVIDERS: ATTEND Family Medicine
DX: C81.10 Nodular sclerosis Hodgkin lymphoma, unspecified site (principal); R73.03 Prediabetes; E78.4 Other hyperlipidemia

== ENCOUNTER → 2017-06-06 | Outpatient (REF) | payer MEDICARE, OTHER ==
[2017-06-06 12:33] LABS: MEAN CORPUSCULAR HEMOGLOBIN 29.9 pg (27.0-33.0); MEAN CORPUSCULAR VOLUME 90.4 fl (80.0-96.0); PLATELET COUNT, AUTOMATED 313 10^3/uL (150-450); RED CELL DISTRIBUTION WIDTH 12.6 % (11.5-14.5); WHITE BLOOD COUNT 8.6 10^3/uL (4.0-10.0)
[2017-06-06 12:51] LABS: FOLATE 11.3 NG/ML
[2017-06-06 12:58] LABS: FREE T4 1.31 NG/DL (0.76-1.46); PERCENT SATURATION 18.4 % (19.7-50.0)
== END ==
LOC: M SFHCADAM 10:48
PROVIDERS: ATTEND Physician Assistant
DX: D64.9 Anemia, unspecified (principal)

== ENCOUNTER 2017-07-24 04:42 | Emergency (ER) | payer MEDICARE, OTHER ==
[2017-07-24 07:19] LABS: BASO % 0.2 % (0.0-1.0); EOS # 0.1 10^3/uL (0.0-0.50); EOS % 1.2 % (0.0-3.0); HEMATOCRIT 41.9 % (42.0-52.0); HEMOGLOBIN 13.6 g/dl (14.0-18.0); IMMATURE GRANULOCYTE % 0.3 % (0-0); KETONE, URINE AUTO RFX NEGATIVE (NEGATIVE); LEUKOCYTE ESTERASE UR AUTO RFX NEGATIVE (NEGATIVE); LYMPH # 1.4 10^3/uL (1.5-4.5); LYMPH % 15.3 % (24.0-44.0); MEAN CORPUSCULAR HEMOGLOBIN 29.5 pg (27.0-33.0); MEAN CORPUSCULAR HGB CONC 32.5 g/dl (32.0-36.5); MEAN CORPUSCULAR VOLUME 90.9 fl (80.0-96.0); MONO # 0.7 10^3/uL (0.0-0.8); MONO % 7.8 % (0.0-5.0); NEUTROPHILS # 6.7 10^3/uL (1.8-7.7); NEUTROPHILS % 75.2 % (36.0-66.0); NITRITE, URINE AUTO RFX NEGATIVE (NEGATIVE); PLATELET COUNT, AUTOMATED 291 10^3/uL (150-450); RBC, URINE AUTO RFX 1 /HPF (0-3); RED BLOOD COUNT 4.61 10^6/uL (4.30-6.10); SPECIFIC GRAVITY UR AUTO RFX 1.004 (1.002-1.035); SQUAM EPITHELIAL CELL UR AURFX 0 /HPF (0-6); WBC, URINE AUTO RFX 0 /HPF (0-3); WHITE BLOOD COUNT 8.9 10^3/uL (4.0-10.0)
[2017-07-24 07:36] LABS: NT-PRO BNP 71 PG/ML (<125)
[2017-07-24 07:37] LABS: ANION GAP 5 MEQ/L (8-16); BLOOD UREA NITROGEN 18 MG/DL (7-18); CALCIUM LEVEL 9.1 MG/DL (8.8-10.2); CARBON DIOXIDE LEVEL 30 MEQ/L (21-32); CHLORIDE LEVEL 102 MEQ/L (98-107); CK-MB VALUE MASS 1.6 NG/ML (0.0-3.6); CPK CREATINE PHOSPHOKINASE 89 U/L (39-308); CREATININE FOR GFR 0.89 MG/DL (0.70-1.30); GLOMERULAR FILTRATION RATE > 60.0 (>49); GLUCOSE, FASTING 120 MG/DL (70-100); MB/CK RELATIVE INDEX 1.79 (< OR =4); POTASSIUM SERUM 4.1 MEQ/L (3.5-5.1); SODIUM LEVEL 137 MEQ/L (136-145); TROPONIN I < 0.02 NG/ML (< 0.10)
== END 2017-07-24 08:33 | disposition home or self-care (01) ==
LOC: M ED 04:42
DX: J84.9 Interstitial pulmonary disease, unspecified (principal); I10 Essential (primary) hypertension; Z79.899 Other long term (current) drug therapy; Z88.1 Allergy status to other antibiotic agents; Z91.030 Bee allergy status
CPT/HCPCS: 71046

== ENCOUNTER → 2017-09-25 | Outpatient (CLI) | payer MEDICARE, OTHER | LOC: M ADAMS 13:48 | DX: M19.042 Primary osteoarthritis, left hand (principal) | CPT/HCPCS: 73130 ==

== ENCOUNTER → 2017-10-05 | Outpatient (REF) | payer MEDICARE, OTHER ==
[2017-10-05 13:01] LABS: BASO % 0.5 % (0.0-1.0); EOS # 0.2 10^3/uL (0.0-0.50); EOS % 2.5 % (0.0-3.0); HEMOGLOBIN 15.1 g/dl (13.5-17.5); IMMATURE GRANULOCYTE % 0.4 % (0-3.0); LYMPH # 1.4 10^3/uL (1.5-4.5); LYMPH % 18.8 % (24.0-44.0); MEAN CORPUSCULAR HEMOGLOBIN 29.8 pg (27.0-33.0); MEAN CORPUSCULAR HGB CONC 32.8 g/dl (32.0-36.5); MEAN CORPUSCULAR VOLUME 90.7 fl (80.0-96.0); MONO # 0.8 10^3/uL (0.0-0.8); MONO % 10.3 % (0.0-5.0); NEUTROPHILS # 5.2 10^3/uL (1.8-7.7); NEUTROPHILS % 67.5 % (36.0-66.0); PLATELET COUNT, AUTOMATED 316 10^3/uL (150-450); RED BLOOD COUNT 5.07 10^6/uL (4.30-6.10); RED CELL DISTRIBUTION WIDTH 12.9 % (11.5-14.5); WHITE BLOOD COUNT 7.7 10^3/uL (4.0-10.0)
[2017-10-05 13:20] LABS: ALBUMIN 4.2 GM/DL (3.2-5.2); ALBUMIN/GLOBULIN RATIO 1.08 (1.00-1.93); ALKALINE PHOSPHATASE 88 U/L (45-117); ALT/SGPT 20 U/L (12-78); ANION GAP 6 MEQ/L (8-16); AST/SGOT 23 U/L (7-37); BILIRUBIN,TOTAL 0.8 MG/DL (0.2-1.0); BLOOD UREA NITROGEN 15 MG/DL (7-18); CALCIUM LEVEL 9.4 MG/DL (8.8-10.2); CARBON DIOXIDE LEVEL 28 MEQ/L (21-32); CHLORIDE LEVEL 103 MEQ/L (98-107); CREATININE FOR GFR 1.01 MG/DL (0.70-1.30); FREE T4 1.29 NG/DL (0.76-1.46); GLOMERULAR FILTRATION RATE > 60.0 (>49); GLUCOSE, FASTING 102 MG/DL (70-100); MAGNESIUM LEVEL 1.9 MG/DL (1.8-2.4); POTASSIUM SERUM 4.7 MEQ/L (3.5-5.1); RHEUMATOID FACTOR QUANT < 10.0 IU/ML (<15.0); SODIUM LEVEL 137 MEQ/L (136-145); THYROID STIMULATING HORMONE 0.802 uIU/ML (0.358-3.740); TOTAL PROTEIN 8.1 GM/DL (6.4-8.2)
[2017-10-05 13:30] LABS: FOLATE 11.8 NG/ML; VITAMIN B12 LEVEL 524 PG/ML
[2017-10-05 13:31] LABS: ERYTHROCYTE SEDIMENTATION RATE 3 mm/hr (0-20)
[2017-10-05 13:58] LABS: ESTIMATED AVERAGE GLUCOSE 126 MG/DL (60-110)
[2017-10-06 14:09] LABS: ANTINUCLEAR ANTIBODIES DIRECT Negative (Negative)
[2017-10-09 14:14] LABS: VITAMIN B1 LEVEL WHOLE BLOOD 140.7 nmol/L (66.5-200.0); VITAMIN B6,PYRIDOXAL PHOSPHATE 5.9 ug/L (5.3-46.7)
[2017-10-10 00:06] LABS: VITAMIN E(ALPHA TOCOPHEROL) 10.3 mg/L (9.0-29.0); VITAMIN E(GAMMA TOCOPHEROL) 1.8 mg/L (0.5-4.9)
== END ==
LOC: M LABNEURO 09:37
DX: E11.9 Type 2 diabetes mellitus without complications (principal); E07.9 Disorder of thyroid, unspecified; M62.838 Other muscle spasm; R20.0 Anesthesia of skin
CPT/HCPCS: 82746

== ENCOUNTER → 2017-11-19 | Outpatient (REF) | payer MEDICARE, OTHER ==
[2017-11-19 13:13] LABS: BASO % 0.4 % (0.0-1.0); EOS # 0.2 10^3/uL (0.0-0.50); HEMATOCRIT 42.6 % (42.0-52.0); HEMOGLOBIN 13.9 g/dl (13.5-17.5); IMMATURE GRANULOCYTE % 0.3 % (0-3.0); LYMPH # 1.4 10^3/uL (1.5-4.5); LYMPH % 19.9 % (24.0-44.0); MEAN CORPUSCULAR HGB CONC 32.6 g/dl (32.0-36.5); MEAN CORPUSCULAR VOLUME 91.8 fl (80.0-96.0); MONO # 0.8 10^3/uL (0.0-0.8); MONO % 11.2 % (0.0-5.0); NEUTROPHILS # 4.5 10^3/uL (1.8-7.7); NEUTROPHILS % 65.2 % (36.0-66.0); PLATELET COUNT, AUTOMATED 306 10^3/uL (150-450); RED BLOOD COUNT 4.64 10^6/uL (4.30-6.10); RED CELL DISTRIBUTION WIDTH 12.9 % (11.5-14.5); WHITE BLOOD COUNT 6.9 10^3/uL (4.0-10.0)
[2017-11-19 13:36] LABS: ESTIMATED AVERAGE GLUCOSE 123 MG/DL (60-110); HEMOGLOBIN A1c 5.9 %
[2017-11-19 13:49] LABS: ALBUMIN 3.8 GM/DL (3.2-5.2); ALBUMIN/GLOBULIN RATIO 1.03 (1.00-1.93); ALKALINE PHOSPHATASE 80 U/L (45-117); ALT/SGPT 18 U/L (12-78); ANION GAP 7 MEQ/L (8-16); AST/SGOT 23 U/L (7-37); BILIRUBIN,TOTAL 0.8 MG/DL (0.2-1.0); BLOOD UREA NITROGEN 16 MG/DL (7-18); CALCIUM LEVEL 8.8 MG/DL (8.8-10.2); CARBON DIOXIDE LEVEL 27 MEQ/L (21-32); CHLORIDE LEVEL 104 MEQ/L (98-107); CHOLESTEROL LEVEL 206 MG/DL (<200); CHOLESTEROL RISK RATIO 6.242 (<5); CREATININE FOR GFR 0.91 MG/DL (0.70-1.30); GLOMERULAR FILTRATION RATE > 60.0 (>49); GLUCOSE, FASTING 107 MG/DL (70-100); HDL CHOLESTEROL 33 MG/DL (>40); LDL CHOLESTEROL 149.4 MG/DL (<100); NON-HDL-C 173 MG/DL; POTASSIUM SERUM 4.5 MEQ/L (3.5-5.1); SODIUM LEVEL 138 MEQ/L (136-145); TOTAL PROTEIN 7.5 GM/DL (6.4-8.2); TRIGLYCERIDES LEVEL 118 MG/DL (<150)
== END ==
LOC: M LABNEURO 08:36
DX: C81.10 Nodular sclerosis Hodgkin lymphoma, unspecified site (principal); E78.4 Other hyperlipidemia; R73.03 Prediabetes
CPT/HCPCS: 80053

== ENCOUNTER → 2018-04-16 | Outpatient (REF) | payer MEDICARE, OTHER ==
[2018-04-16 13:12] LABS: ALBUMIN 3.7 GM/DL (3.2-5.2); ALBUMIN/GLOBULIN RATIO 1.06 (1.00-1.93); ALKALINE PHOSPHATASE 76 U/L (45-117); ALT/SGPT 20 U/L (12-78); ANION GAP 7 MEQ/L (8-16); AST/SGOT 19 U/L (7-37); BILIRUBIN,TOTAL 0.7 MG/DL (0.2-1.0); BLOOD UREA NITROGEN 17 MG/DL (7-18); CALCIUM LEVEL 8.9 MG/DL (8.8-10.2); CARBON DIOXIDE LEVEL 29 MEQ/L (21-32); CHLORIDE LEVEL 105 MEQ/L (98-107); CHOLESTEROL LEVEL 130 MG/DL (<200); CHOLESTEROL RISK RATIO 3.513 (<5); CREATININE FOR GFR 0.95 MG/DL (0.70-1.30); GLOMERULAR FILTRATION RATE > 60.0 (>49); GLUCOSE, FASTING 103 MG/DL (70-100); HDL CHOLESTEROL 37 MG/DL (>40); LDL CHOLESTEROL 76 MG/DL (<100); NON-HDL-C 93 MG/DL; POTASSIUM SERUM 4.7 MEQ/L (3.5-5.1); SODIUM LEVEL 141 MEQ/L (136-145); TOTAL PROTEIN 7.2 GM/DL (6.4-8.2); TRIGLYCERIDES LEVEL 84 MG/DL (<150)
[2018-04-16 13:47] LABS: MALB URINE SIEMENS 16.7 MG/L; MAU/CREAT RATIO 7.5 MCG/MG (0.0-30.0)
[2018-04-16 13:52] LABS: ESTIMATED AVERAGE GLUCOSE 128 MG/DL (60-110); HEMOGLOBIN A1c 6.1 %
== END ==
LOC: M SFHCADAM 08:18
DX: E78.49 Other hyperlipidemia (principal); I10 Essential (primary) hypertension; R73.03 Prediabetes
CPT/HCPCS: 80053

== ENCOUNTER → 2018-07-30 | Outpatient (CLI) | payer MEDICARE, BC, OTHER ==
[~2018-07-30] MED LIST changes: -BENI1TAB PO; +BENI1TAB3 PO; +DOXY100C37 PO; +LOSA50TA88 PO; +VITA100072 PO
--- NOTE | 2018-07-30 15:07 | REP ---
Thoracic spine three views: Comparison is a PA and lateral chest dated 07/24/2017. There is demineralization. There is mild scoliosis convex right in the upper thoracic area. Vertebral body heights and alignment are normal. There is moderate degenerative disc disease throughout the thoracic spine. Pedicles are unremarkable. Impression: Demineralization. Mild scoliosis. Moderate degenerative disc disease. Lumbar spine three views AP and lateral projections: There is mild scoliosis convex left, possibly positional. Vertebral body heights and alignment are normal. There is degenerative disc disease at L2-3 and L3-4. The pedicles and sacroiliac articulations are unremarkable. There is a surgical staple line and surgical homeostasis clips in the abdomen on the right. Impression: Scoliosis. Degenerative disc disease Electronically Signed by Krzysztof Otto MD 07/30/2018 02:58 P
== END ==
LOC: M WUC 13:16
PROVIDERS: ATTEND Family Medicine
DX: Z00.00 Encounter for general adult medical examination without abnormal findings (principal)

== ENCOUNTER → 2019-01-16 | Outpatient (CLI) | payer MEDICARE, BC, OTHER ==
[~2019-01-16] MED LIST changes: +VITA100018 PO; -VITA100072 PO
[2019-01-16 09:19] LABS: ALBUMIN 3.9 GM/DL (3.2-5.2); ALT/SGPT 16 U/L (12-78); BILIRUBIN,TOTAL 0.8 MG/DL (0.2-1.0); BLOOD UREA NITROGEN 18 MG/DL (7-18); CALCIUM LEVEL 9.2 MG/DL (8.8-10.2); CARBON DIOXIDE LEVEL 31 MEQ/L (21-32); CHLORIDE LEVEL 105 MEQ/L (98-107); CHOLESTEROL LEVEL 133 MG/DL (<200); CHOLESTEROL RISK RATIO 3.243 (<5); GLOMERULAR FILTRATION RATE > 60.0 (>42); GLUCOSE, FASTING 113 MG/DL (70-100); HDL CHOLESTEROL 41 MG/DL (>40); LDL CHOLESTEROL 77 MG/DL (<100); NON-HDL-C 92 MG/DL; POTASSIUM SERUM 4.9 MEQ/L (3.5-5.1); SODIUM LEVEL 140 MEQ/L (136-145); TOTAL PROTEIN 7.7 GM/DL (6.4-8.2); TRIGLYCERIDES LEVEL 74 MG/DL (<150)
== END ==
LOC: M WUC 08:02
PROVIDERS: ATTEND Family Medicine
DX: I10 Essential (primary) hypertension (principal); E78.49 Other hyperlipidemia

== ENCOUNTER → 2019-02-10 | Outpatient (CLI) | payer MEDICARE, BC, OTHER | LOC: M WUC 15:06 | PROVIDERS: ATTEND Physician Assistant | DX: Z85.46 Personal history of malignant neoplasm of prostate (principal) ==

== ENCOUNTER 2019-06-09 07:48 | Day surgery (SDC) | payer MEDICARE, BC, OTHER ==
[~2019-06-09] VITALS: Ht 170.2 cm; Wt 86.6 kg
[~2019-06-09 07:48] MED LIST changes: +AFRI0.058; +ATOR1TAB19 PO; +FLON1SPR NARES; +LOSA100T50 PO; +MECL-86 PO; +NS 1,000 ML IV ONE
[2019-06-09] MEDS ORDERED: PROPOFOL 200 MG/20 ML VIAL As Ordered ONE (08:55)
[2019-06-09] MEDS ORDERED: LIDOCAINE 2% INJ 100 MG/5 ML SDV (FOR ANES.) As Ordered ONE (08:56)
[2019-06-09] MEDS ORDERED: LABETALOL HCL 100 MG/20 ML VIAL As Ordered ONE (09:13)
--- NOTE | 2019-06-09 09:33 | ROOR ---
Patient Name: Oz Serrano Procedure Date: 06/09/2019 9:13 AM Date of : 1950 Age: 68 Room: [facility] Gender: Male Note Status: Finalized Procedure: Colonoscopy Indications: High risk colon cancer surveillance: Personal history of colon cancer Providers: Vineet Arreola Jr, MD Referring MD: Iglesia Villatoro MD Requesting Provider: Medicines: Propofol per Anesthesia Complications: No immediate complications. Procedure: Pre-Anesthesia Assessment: - Prior to the procedure, a History and Physical was performed, and patient medications and allergies were reviewed. The patient is competent. The risks and benefits of the procedure and the sedation options and risks were discussed with the patient. All questions were answered and informed consent was obtained. Patient identification and proposed procedure were verified by the physician and the nurse in the pre-procedure area and in the procedure room. Mental Status Examination: alert and oriented. Airway Examination: normal oropharyngeal airway and neck mobility. Respiratory Examination: clear to auscultation. CV Examination: normal. ASA Grade Assessment: II - A patient with mild systemic disease. After reviewing the risks and benefits, the patient was deemed in satisfactory condition to undergo the procedure. The anesthesia plan was to use moderate sedation / analgesia (conscious sedation). Immediately prior to administration of medications, the patient was re-assessed for adequacy to receive sedatives. The heart rate, respiratory rate, oxygen saturations, blood pressure, adequacy of pulmonary ventilation, and response to care were monitored throughout the procedure. The physical status of the patient was re-assessed after the procedure. The Colonoscope was introduced through the anus and advanced to the ileocolonic anastomosis. The colonoscopy was performed without difficulty. The patient tolerated the procedure well. The quality of the bowel preparation was adequate. Findings: The rectum, recto-sigmoid colon, descending colon, transverse colon, ascending colon and anastomosis appeared normal. Multiple small and large-mouthed diverticula were found in the sigmoid colon. Three polyps were found in the rectum, descending colon and transverse colon. The polyps were small in size. These polyps were removed with a cold snare. Resection and retrieval were complete. Non-bleeding external and internal hemorrhoids were found during endoscopy. The hemorrhoids were Grade II (internal hemorrhoids that prolapse but reduce spontaneously) and Grade III (internal hemorrhoids that prolapse but require manual reduction). Impression: - The rectum, recto-sigmoid colon, descending colon, transverse colon, ascending colon and colonic anastomosis are normal. - Diverticulosis in the sigmoid colon. - Three small polyps in the rectum, in the descending colon and in the transverse colon, removed with a cold snare. Resected and retrieved. - Non-bleeding external and internal hemorrhoids. Recommendation: - Repeat colonoscopy in 5 years for surveillance. Vineet Arreola MD Vineet Arreola Jr, MD 06/09/2019 9:33:23 AM Electronically signed by Vineet Arreola Jr, MD Number of Addenda: 0 Note Initiated On: 06/09/2019 9:13 AM Estimated Blood Loss: Estimated blood loss: none.
[2019-06-09 10:03] VITALS: BP 151/78
== END 2019-06-09 10:03 | disposition home or self-care (01) ==
LOC: M OPP 07:48
PROVIDERS: ATTEND Surgery
DX: Z12.11 Encounter for screening for malignant neoplasm of colon (principal); Z85.038 Personal history of other malignant neoplasm of large intestine; K64.2 Third degree hemorrhoids; K62.1 Rectal polyp; D12.4 Benign neoplasm of descending colon; D12.3 Benign neoplasm of transverse colon; K57.30 Diverticulosis of large intestine without perforation or abscess without bleeding; Z79.84 Long term (current) use of oral hypoglycemic drugs; Z79.899 Other long term (current) drug therapy; Z88.1 Allergy status to other antibiotic agents; Z91.030 Bee allergy status

== ENCOUNTER → 2019-07-21 | Outpatient (CLI) | payer MEDICARE, BC, OTHER ==
[~2019-07-21] MED LIST changes: -NS 1,000 ML IV ONE
[2019-07-21 10:30] LABS: ALBUMIN 3.6 GM/DL (3.2-5.2); ALT/SGPT 14 U/L (12-78); BILIRUBIN,TOTAL 0.5 MG/DL (0.2-1.0); BLOOD UREA NITROGEN 15 MG/DL (7-18); CALCIUM LEVEL 9.1 MG/DL (8.8-10.2); CARBON DIOXIDE LEVEL 30 MEQ/L (21-32); CHLORIDE LEVEL 105 MEQ/L (98-107); CHOLESTEROL LEVEL 146 MG/DL (<200); CHOLESTEROL RISK RATIO 3.945 (<5); CREATININE FOR GFR 0.87 MG/DL (0.70-1.30); GLOMERULAR FILTRATION RATE > 60.0 (>42); GLUCOSE, FASTING 103 MG/DL (70-100); HDL CHOLESTEROL 37 MG/DL (>40); LDL CHOLESTEROL 90 MG/DL (<100); NON-HDL-C 109 MG/DL; POTASSIUM SERUM 4.6 MEQ/L (3.5-5.1); SODIUM LEVEL 141 MEQ/L (136-145); TOTAL PROTEIN 7.1 GM/DL (6.4-8.2); TRIGLYCERIDES LEVEL 97 MG/DL (<150)
== END ==
LOC: M WUC 08:34
PROVIDERS: ATTEND Family Medicine
DX: I10 Essential (primary) hypertension (principal); E78.49 Other hyperlipidemia

== ENCOUNTER 2020-01-18 16:46 | Emergency (ER) | payer MEDICARE, BC, OTHER ==
[2020-01-18] MEDS ORDERED: GI COCKTAIL 50ML BTL(HYOSCYAMINE/MAALOX/LIDOCAINE VISCOUS)(1:3:1) As Ordered ONE (17:30)
[2020-01-18] MEDS ORDERED: GI COCKTAIL 50ML BTL(HYOSCYAMINE/MAALOX/LIDOCAINE VISCOUS)(1:3:1) ONE (17:30)
[2020-03-04 13:37] LABS: INR 0.91; PARTIAL THROMBOPLASTIN TIME 30.1 SECONDS (25.0-38.4); PROTHROMBIN TIME 12.4 SECONDS (11.8-14.0)
--- NOTE | 2020-03-04 14:26 | ECGEPIP ---
SINUS RHYTHM VOLTAGE CRITERIA FOR LVH ABNORMAL ECG INTERPRETATION BASED ON A DEFAULT AGE OF 40 YEARS PRWP NO OLD AVAILABLE SEE SCANNED DOWNTIME REPORT MTDD
--- NOTE | 2020-03-04 14:27 | ECGEPIP ---
SINUS RHYTHM VOLTAGE CRITERIA FOR LVH ABNORMAL ECG NO OLD AVAILABLE SEE SCANNED DOWNTIME REPORT MTDD
[2020-03-04 16:44] LABS: HEMATOCRIT 44.6 % (42.0-52.0); MEAN CORPUSCULAR HEMOGLOBIN 29.5 pg (27.0-33.0); MEAN CORPUSCULAR HGB CONC 31.4 g/dl (32.0-36.5); MEAN CORPUSCULAR VOLUME 94.1 fl (80.0-96.0); PLATELET COUNT, AUTOMATED 296 10^3/uL (150-450); RED BLOOD COUNT 4.74 10^6/uL (4.30-6.10); WHITE BLOOD COUNT 8.1 10^3/uL (4.0-10.0)
--- NOTE | 2020-03-10 09:07 | REP ---
PORTABLE CHEST X-RAY: HISTORY: Chest pain. COMPARISON: None. FINDINGS: There is mild to moderate cardiomegaly observed. A bibasilar diffuse interstitial fibrosis pattern is seen in the lung aguilar. There is no evidence of pleural effusion or pulmonary edema. Pulmonary vasculature is not increased. Monitoring electrodes are seen. IMPRESSION: Cardiomegaly and bibasilar interstitial fibrosis pattern. No focal infiltrate seen. MTDD
[2020-03-31 16:12] LABS: ALBUMIN 3.9 GM/DL (3.2-5.2); ALT/SGPT 22 U/L (12-78); BILIRUBIN,TOTAL 0.4 MG/DL (0.2-1.0); BLOOD UREA NITROGEN 13 MG/DL (7-18); CALCIUM LEVEL 9.1 MG/DL (8.8-10.2); CARBON DIOXIDE LEVEL 29 MEQ/L (21-32); CHLORIDE LEVEL 106 MEQ/L (98-107); CK-MB VALUE MASS 1.4 NG/ML (<3.6); CPK CREATINE PHOSPHOKINASE 83 U/L (39-308); CREATININE FOR GFR 0.92 MG/DL (0.70-1.30); GLOMERULAR FILTRATION RATE > 60.0 (>42); GLUCOSE, FASTING 107 MG/DL (70-100); MB/CK RELATIVE INDEX 1.69 (< OR =4); NT-PRO BNP 104 PG/ML (<125); POTASSIUM SERUM 4.8 MEQ/L (3.5-5.1); SODIUM LEVEL 139 MEQ/L (136-145); TOTAL PROTEIN 7.5 GM/DL (6.4-8.2); TROPONIN I < 0.02 NG/ML (< 0.10)
[2020-03-31 16:12] LABS: CK-MB VALUE MASS 1.3 NG/ML (<3.6); CPK CREATINE PHOSPHOKINASE 65 U/L (39-308); TROPONIN I < 0.02 NG/ML (< 0.10)
== END 2020-01-18 22:00 | disposition home or self-care (01) ==
LOC: M ED 16:46
DX: R07.9 Chest pain, unspecified (principal); K21.9 Gastro-esophageal reflux disease without esophagitis; E11.9 Type 2 diabetes mellitus without complications; I10 Essential (primary) hypertension; Z85.038 Personal history of other malignant neoplasm of large intestine; Z85.46 Personal history of malignant neoplasm of prostate; Z79.84 Long term (current) use of oral hypoglycemic drugs; Z79.899 Other long term (current) drug therapy

== ENCOUNTER 2020-06-25 09:34 | Emergency (ER) | payer MEDICARE, BC, OTHER ==
[~2020-06-25] VITALS: Ht 170.2 cm; Wt 90.5 kg
[2020-06-25 10:02] LABS: BASO % 0.5 % (0.0-1.0); EOS # 0.2 10^3/uL (0.0-0.5); EOS % 2.9 % (0.0-3.0); HEMATOCRIT 43.8 % (42.0-52.0); HEMOGLOBIN 13.6 g/dl (13.5-17.5); LYMPH # 1.6 10^3/uL (1.5-5.0); LYMPH % 19.7 % (24.0-44.0); MEAN CORPUSCULAR HEMOGLOBIN 29.4 pg (27.0-33.0); MEAN CORPUSCULAR HGB CONC 31.1 g/dl (32.0-36.5); MEAN CORPUSCULAR VOLUME 94.6 fl (80.0-96.0); MONO # 0.8 10^3/uL (0.0-0.8); MONO % 10.2 % (0.0-5.0); NEUTROPHILS # 5.3 10^3/uL (1.5-8.5); NEUTROPHILS % 66.3 % (36.0-66.0); PLATELET COUNT, AUTOMATED 291 10^3/uL (150-450); RED BLOOD COUNT 4.63 10^6/uL (4.30-6.10)
[2020-06-25 10:14] LABS: INR 0.94; PROTHROMBIN TIME 12.8 SECONDS (12.5-14.3)
[2020-06-25 10:15] LABS: PARTIAL THROMBOPLASTIN TIME 29.7 SECONDS (24.2-38.5)
--- NOTE | 2020-06-25 10:29 | REP ---
INDICATION: CHEST PAIN COMPARISON: 01/18/2020 TECHNIQUE: Portable AP view of the chest FINDINGS: The mediastinum and cardiac silhouette are stable and within normal limits for portable technique. The lung aguilar demonstrate stable chronic interstitial changes similar to prior examination and most pronounced in the left lower lobe. No obvious acute consolidation, effusion, or pneumothorax. IMPRESSION: Chronic stable changes similar to prior examination. No obvious acute focal consolidation or effusion. <Electronically signed by Willie Nixon > 06/25/20 1020
[2020-06-25 10:42] LABS: ALBUMIN 3.9 GM/DL (3.2-5.2); BILIRUBIN,DIRECT 0.2 MG/DL (0.0-0.2); BILIRUBIN,TOTAL 0.7 MG/DL (0.2-1.0); FREE T4 1.28 NG/DL (0.76-1.46); THYROID STIMULATING HORMONE 0.874 uIU/ML (0.358-3.740); TOTAL PROTEIN 7.4 GM/DL (6.4-8.2)
[2020-06-25 16:46] LABS: CK-MB VALUE MASS 1.3 NG/ML (<3.6); CPK CREATINE PHOSPHOKINASE 53 U/L (39-308); MB/CK RELATIVE INDEX 2.45 (< OR =4); TROPONIN I < 0.02 NG/ML (< 0.10)
[2020-06-25 17:15] VITALS: BP 166/94
--- NOTE | 2020-06-25 21:36 | ECGEPIP ---
[facility] - ED Test Date: 2020-06-25 Pat Name: PAT GUY Department: Room: - Gender: Male Retail Support Associate: MANDO : 1950 Requested By: Yaquelin Lao Order Number: [id number] Reading MD: Gonzalo Adam Measurements Intervals [place] Rate: 76 P: -15 LA: 149 QRS: -18 QRSD: 95 T: 6 QT: 364 QTc: 411 Interpretive Statements SINUS RHYTHM MODERATE VOLTAGE CRITERIA FOR LVH, CONSIDER NORMAL VARIANT NONSPECIFIC T WAVE ABNORMALITY(S) SIMILAR TO 05/29/19 Electronically Signed on 06-25-2020 21:36:14 EST by Gonzalo Adam
== END 2020-06-25 17:23 | disposition home or self-care (01) ==
LOC: M ED 09:34
DX: R07.9 Chest pain, unspecified (principal); E11.9 Type 2 diabetes mellitus without complications; I10 Essential (primary) hypertension; K21.9 Gastro-esophageal reflux disease without esophagitis; Z87.891 Personal history of nicotine dependence; Z85.038 Personal history of other malignant neoplasm of large intestine; Z90.49 Acquired absence of other specified parts of digestive tract; Z79.84 Long term (current) use of oral hypoglycemic drugs; Z79.899 Other long term (current) drug therapy; Z91.030 Bee allergy status; Z88.8 Allergy status to other drugs, medicaments and biological substances

== ENCOUNTER 2020-06-27 01:16 | Emergency (ER) | payer MEDICARE, BC, OTHER ==
[~2020-06-27] VITALS: Ht 170.2 cm; Wt 89.1 kg
[2020-06-27 01:56] LABS: BASO % 0.3 % (0.0-1.0); EOS # 0.3 10^3/uL (0.0-0.5); EOS % 2.5 % (0.0-3.0); HEMATOCRIT 46.6 % (42.0-52.0); HEMOGLOBIN 14.4 g/dl (13.5-17.5); LYMPH # 2.6 10^3/uL (1.5-5.0); LYMPH % 25.5 % (24.0-44.0); MEAN CORPUSCULAR HEMOGLOBIN 29.3 pg (27.0-33.0); MEAN CORPUSCULAR HGB CONC 30.9 g/dl (32.0-36.5); MEAN CORPUSCULAR VOLUME 94.7 fl (80.0-96.0); MONO # 1.1 10^3/uL (0.0-0.8); MONO % 10.8 % (0.0-5.0); NEUTROPHILS # 6.2 10^3/uL (1.5-8.5); NEUTROPHILS % 60.6 % (36.0-66.0); PLATELET COUNT, AUTOMATED 341 10^3/uL (150-450); RED BLOOD COUNT 4.92 10^6/uL (4.30-6.10); WHITE BLOOD COUNT 10.2 10^3/uL (4.0-10.0)
[2020-06-27] MEDS ORDERED: ASPIRIN 81 MG CHEW TABLET PO ONE (02:00)
[2020-06-27] MEDS ORDERED: NITROGLYCERIN 0.4 MG SUBL TABLET SL PRN (02:00)
[2020-06-27 02:05] VITALS: BP 117/113
[2020-06-27 02:07] LABS: PARTIAL THROMBOPLASTIN TIME 31.7 SECONDS (24.2-38.5); PROTHROMBIN TIME 13.4 SECONDS (12.5-14.3)
[2020-06-27 02:22] LABS: ALBUMIN 4.1 GM/DL (3.2-5.2); ALT/SGPT 20 U/L (12-78); BILIRUBIN,DIRECT 0.2 MG/DL (0.0-0.2); BILIRUBIN,TOTAL 0.8 MG/DL (0.2-1.0); BLOOD UREA NITROGEN 12 MG/DL (7-18); CALCIUM LEVEL 9.3 MG/DL (8.8-10.2); CARBON DIOXIDE LEVEL 28 MEQ/L (21-32); CHLORIDE LEVEL 101 MEQ/L (98-107); CK-MB VALUE MASS 1.3 NG/ML (<3.6); CPK CREATINE PHOSPHOKINASE 71 U/L (39-308); CREATININE FOR GFR 0.98 MG/DL (0.70-1.30); FREE T4 1.42 NG/DL (0.76-1.46); GLOMERULAR FILTRATION RATE > 60.0 (>42); GLUCOSE, FASTING 119 MG/DL (70-100); LIPASE 152 U/L (73-393); MB/CK RELATIVE INDEX 1.83 (< OR =4); SODIUM LEVEL 135 MEQ/L (136-145); TOTAL PROTEIN 8.2 GM/DL (6.4-8.2); TROPONIN I < 0.02 NG/ML (< 0.10)
--- NOTE | 2020-06-27 02:56 | REPVR ---
PROCEDURE INFORMATION: Exam: XR Chest, 2 Views Exam date and time: 06/27/2020 2:25 AM Age: 69 years old Clinical indication: Chest pain TECHNIQUE: Imaging protocol: XR of the chest Views: 2 views. COMPARISON: MT PORTABLE CHEST X-RAY 06/25/2020 10:19 AM FINDINGS: Lungs: The right lung is similar. Increased left base infiltrate and atelectasis with decreased delineation of the left hemidiaphragm. Pleural space: Unremarkable. No pleural effusion. No pneumothorax. Heart/Mediastinum: The heart and mediastinum are unchanged. Bones/joints: Unremarkable. Soft tissues: There are moderately generous overlying soft tissues. Other findings: Increased lordotic projection since the prior study. IMPRESSION: 1. Increased left base infiltrate or atelectasis since 06/25/2020. 2. Otherwise stable chest considering increased lordotic projection. Electronically signed by: Ravi Rm On 06/27/2020 02:56:35 AM
[2020-06-27] MEDS ORDERED: ISOVUE-370 76% 100ML VIAL As Ordered ONE (03:07)
--- NOTE | 2020-06-27 03:38 | REPVR ---
PROCEDURE INFORMATION: Exam: CT Angiography Chest With Contrast Exam date and time: 06/27/2020 3:16 AM Age: 69 years old Clinical indication: Right-sided chest pain; Additional info: Right chest pain TECHNIQUE: Imaging protocol: Computed tomographic angiography of the chest with intravenous contrast. 3D rendering (Not supervised by radiologist): MIP and/or 3D reconstructed images were created by the technologist. Radiation optimization: All CT scans at this facility use at least one of these dose optimization techniques: automated exposure control; mA and/or kV adjustment per patient size (includes targeted exams where dose is matched to clinical indication); or iterative reconstruction. Contrast material: ISOVUE 370; Contrast volume: 75 ml; Contrast route: INTRAVENOUS (IV); COMPARISON: CT ANGIO CHEST 08/07/2016 11:50 PM FINDINGS: Pulmonary arteries: The main pulmonary artery measures 35 mm. No pulmonary embolism is identified. Aorta: The ascending thoracic aorta measures 36 mm. Lungs: Slight interstitial coarsening with scattered bilateral ground-glass infiltrates and mild scattered fibro-atelectatic change which is similar to the prior study. Pleural space: Unremarkable. No pneumothorax. No pleural effusion. Heart: Unremarkable. No cardiomegaly. No pericardial effusion. Lymph nodes: Unremarkable. No enlarged lymph nodes. Bones/joints: Unremarkable. No acute fracture. Soft tissues: Unremarkable. IMPRESSION: 1. Slight interstitial coarsening with scattered bilateral pulmonary infiltrates and fibro-atelectatic change, greatest in the bases which is similar to 08/07/2016 and may reflect chronic interstitial pneumonitis. 2. Otherwise negative CTA chest. No pulmonary embolism is identified. Electronically signed by: Ravi Rm On 06/27/2020 03:38:27 AM
--- NOTE | 2020-06-27 06:39 | ECGEPIP ---
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
[2020-06-27 08:50] LABS: CK-MB VALUE MASS 1.1 NG/ML (<3.6); CPK CREATINE PHOSPHOKINASE 49 U/L (39-308); MB/CK RELATIVE INDEX 2.24 (< OR =4); TROPONIN I < 0.02 NG/ML (< 0.10)
[2020-06-27] MEDS ORDERED: MOXI400T11 PO (09:05)
[2020-06-27] MEDS ORDERED: MOXIFLOXACIN 400 MG TAB PO ONE (09:15)
--- NOTE | 2020-06-27 09:53 | ECGEPIP ---
[facility] - ED Test Date: 2020-06-27 Pat Name: PAT GUY Department: Room: - Gender: Male Inspector Glass Or Mirror: VITO : 1950 Requested By: ADARSH Atkins Order Number: [id number] Reading MD: Renzo Talavera Measurements Intervals [place] Rate: 67 P: -3 MI: 169 QRS: -20 QRSD: 91 T: 10 QT: 388 QTc: 411 Interpretive Statements SINUS RHYTHM VOLTAGE CRITERIA FOR LVH LEFT AXIS DEVIATION NONSPECIFIC ST T WAVE CHANGES CW 07/06/[address] T WAVE CHANGES Electronically Signed on 06-27-2020 9:53:35 EST by Renzo Talavera
[2020-06-27 10:02] VITALS: BP 178/96
== END 2020-06-27 10:05 | disposition home or self-care (01) ==
LOC: M ED 01:16
DX: R07.9 Chest pain, unspecified (principal); J20.9 Acute bronchitis, unspecified; R06.02 Shortness of breath; R73.03 Prediabetes; E78.5 Hyperlipidemia, unspecified; N40.0 Benign prostatic hyperplasia without lower urinary tract symptoms; E66.9 Obesity, unspecified; J44.9 Chronic obstructive pulmonary disease, unspecified; K44.9 Diaphragmatic hernia without obstruction or gangrene; Z85.038 Personal history of other malignant neoplasm of large intestine; Z85.46 Personal history of malignant neoplasm of prostate; Z85.71 Personal history of Hodgkin lymphoma; F17.200 Nicotine dependence, unspecified, uncomplicated; Z82.49 Family history of ischemic heart disease and other diseases of the circulatory system; Z79.84 Long term (current) use of oral hypoglycemic drugs; Z79.899 Other long term (current) drug therapy; Z91.030 Bee allergy status; Z88.1 Allergy status to other antibiotic agents
CPT/HCPCS: 71046; 71275; 80048; 80076; 82550; 82553; 83690; 84439; 84443; 84484; 85025; 85610; 85730; 93005; 93041; 94760; 99285; Q9967

== ENCOUNTER → 2020-07-19 | Outpatient (CLI) | payer MEDICARE, BC, OTHER ==
[~2020-07-19] MED LIST changes: +MOXI400T11 PO
--- NOTE | 2020-07-19 09:14 | REP ---
INDICATION: RUQ ABDOMINAL PAIN COMPARISON: None. TECHNIQUE: Real time asher scale ultrasound examination using curved array transducer. FINDINGS: Liver demonstrates increased echogenicity without focal hepatic lesion. Pancreas is incompletely evaluated but visualized portions appear normal. The gallbladder is normal and without gallstones, wall thickening, or pericholecystic fluid. No biliary ductal dilatation is appreciated and the common bile duct measures 3.8 mm diameter. Right kidney is normal in reniform shape without hydronephrosis and measures 10.2 x 5.8 x 5.6 cm. No ascites in the visualized right upper quadrant. IMPRESSION: Hepatosteatosis. <Electronically signed by Willie Nixon > 07/19/20 0911
== END ==
LOC: M RAD 08:43
PROVIDERS: ATTEND Family Medicine
DX: R10.11 Right upper quadrant pain (principal); K76.0 Fatty (change of) liver, not elsewhere classified

== ENCOUNTER → 2020-08-10 | Outpatient (CLI) | payer MEDICARE, BC, OTHER | LOC: M WUC 11:08 | PROVIDERS: ATTEND Physician Assistant | DX: Z85.46 Personal history of malignant neoplasm of prostate (principal) ==

== ENCOUNTER → 2021-01-07 | Outpatient (REF) | payer MEDICARE, OTHER ==
[~2021-01-07] MED LIST changes: -DOXY100C37 PO; +DOXY1CAP62 PO
[2021-01-07 19:17] LABS: HEMATOCRIT 42.9 % (42.0-52.0); HEMOGLOBIN 13.5 g/dl (13.5-17.5); MEAN CORPUSCULAR HEMOGLOBIN 29.8 pg (27.0-33.0); MEAN CORPUSCULAR HGB CONC 31.5 g/dl (32.0-36.5); MEAN CORPUSCULAR VOLUME 94.7 fl (80.0-96.0); PLATELET COUNT, AUTOMATED 318 10^3/uL (150-450); RED BLOOD COUNT 4.53 10^6/uL (4.30-6.10); WHITE BLOOD COUNT 6.9 10^3/uL (4.0-10.0)
[2021-01-07 19:44] LABS: ALT/SGPT 20 U/L (12-78); BILIRUBIN,TOTAL 0.7 MG/DL (0.2-1.0); BLOOD UREA NITROGEN 10 MG/DL (7-18); CALCIUM LEVEL 8.8 MG/DL (8.8-10.2); CARBON DIOXIDE LEVEL 30 MEQ/L (21-32); CHLORIDE LEVEL 102 MEQ/L (98-107); CHOLESTEROL LEVEL 152 MG/DL (<200); CHOLESTEROL RISK RATIO 4.222 (<5); CREATININE FOR GFR 0.91 MG/DL (0.70-1.30); GLOMERULAR FILTRATION RATE > 60.0 (>42); GLUCOSE, FASTING 93 MG/DL (70-100); HDL CHOLESTEROL 36 MG/DL (>40); LDL CHOLESTEROL 97 MG/DL (<100); NON-HDL-C 116 MG/DL; POTASSIUM SERUM 4.2 MEQ/L (3.5-5.1); SODIUM LEVEL 139 MEQ/L (136-145); TOTAL PROTEIN 7.9 GM/DL (6.4-8.2); TRIGLYCERIDES LEVEL 93 MG/DL (<150)
[2021-01-07 19:45] LABS: FREE T4 1.21 NG/DL (0.76-1.46); THYROID STIMULATING HORMONE 0.692 uIU/ML (0.358-3.740)
== END ==
LOC: M SFHCADAM 15:33
PROVIDERS: ATTEND Family Medicine
DX: R73.03 Prediabetes (principal); E78.49 Other hyperlipidemia; C81.10 Nodular sclerosis Hodgkin lymphoma, unspecified site

== ENCOUNTER → 2021-01-07 | Outpatient (CLI) | payer MEDICARE, OTHER ==
--- NOTE | 2021-01-07 16:05 | REP ---
INDICATION: OTHER SPECIFIED INTERSTITIAL PULMONARY DISEASES COMPARISON: 06/27/2020. TECHNIQUE: PA/Lateral FINDINGS: Lungs: Moderate fibrotic changes are again seen in the lower lung aguilar, unchanged. Heart: Heart is upper limits of normal in size and unchanged. Mediastinum: Mediastinal silhouette unremarkable and unchanged. Pleural angles: Unremarkable.. Bones and soft tissues: Unremarkable. IMPRESSION: Stable moderate bibasilar fibrotic changes. <Electronically signed by Krzysztof Pathak > 01/07/21 [id number]
== END ==
LOC: M ADAMS 15:36
PROVIDERS: ATTEND Family Medicine
DX: J84.89 Other specified interstitial pulmonary diseases (principal); R73.03 Prediabetes; E78.49 Other hyperlipidemia; C81.10 Nodular sclerosis Hodgkin lymphoma, unspecified site
CPT/HCPCS: 71046; 80053; 80061; 84439; 84443; 85027; G0463

== ENCOUNTER → 2021-05-26 | Outpatient (CLI) | payer MEDICARE, BC, OTHER ==
[~2021-05-26] MED LIST changes: +ALBU83IN INH; +DOXY-443 PO; -DOXY1CAP62 PO; +LOSA100T45 PO; -LOSA100T50 PO; +LOSA50TA28 PO; -LOSA50TA88 PO
== END ==
LOC: M PLAIMG 10:23
PROVIDERS: ATTEND Physician Assistant
DX: J84.10 Pulmonary fibrosis, unspecified (principal); Z53.9 Procedure and treatment not carried out, unspecified reason

== ENCOUNTER → 2021-05-26 | Outpatient (CLI) | payer MEDICARE, BC, OTHER ==
[~2021-05-26] MED LIST changes: -ALBU83IN INH; -LOSA100T45 PO; +LOSA100T50 PO; -LOSA50TA28 PO; +LOSA50TA88 PO
--- NOTE | 2021-05-26 10:48 | PFTRPT ---
Site: [facility], [address] [place] [address], [id number] ID: [id number] Name: PAT GUY Visit Date: 05/26/2021 Second ID: [id number] Referring Doctor: SCAR Urias, Gem Aguero Reviewing Doctor: Jose Mckeon MD Grinding Wheel Operator: Blayne ESCOBEDO, NOLBERTO Age: 70 : 1950 Sex: Male Race: Height: 67.00 Inches Weight: 190.00 Lbs BSA: 1.98 Order IDs: [id number] Requested Test(s): <RESP-PFT.PFT B/A> Diagnosis: J84.10 of albuterol for post bronchodilator. The results of this test appear to be valid, although the ATS standard for "end of test" was not met. Review Status: Not Reviewed Pre-Bronch Post-Bronch Pred Actual %Pred Actual %Chng SPIROMETRY FVC (L) 3.84 2.18 56 2.23 2 FEV1 (L) 2.79 1.78 63 1.84 3 FEV1/FVC (%) 73 81 111 82 1 FEF 25% (L/sec) 6.84 4.80 70 5.57 16 FEF 50% (L/sec) 4.18 4.02 96 4.20 4 FEF 75% (L/sec) 1.08 0.61 56 0.66 8 FEF 25-75% (L/sec) 2.08 2.03 97 2.17 7 FEF Max (L/sec) 7.45 6.14 82 5.94 -3 FIVC (L) 1.89 2.08 9 FIF 50% (L/sec) 4.40 2.47 56 3.75 52 FIF Max (L/sec) 2.95 3.86 31 MVV (L/min) 114 88 77 Expiratory Time (sec) 5.03 4.64 -7 Back Extrap Vol (L) 0.08 0.14 64 Time To FEFmax (sec) 0.165 0.134 -18 LUNG VOLUMES SVC (L) 4.09 2.22 54 IC (L) 3.04 1.67 54 ERV (L) 1.05 0.55 52 TGV (L) 3.39 1.95 57 RV (Pleth) (L) 2.34 1.40 59 TLC (Pleth) (L) 6.43 3.62 56 RV/TLC (Pleth) (%) 36 39 107 DIFFUSION DLCOunc (ml/min/mmHg) 24.33 14.51 59 DLCOcor (ml/min/mmHg) 24.33 15.25 62 DL/VA (ml/min/mmHg/L) 3.78 4.58 121 VA (L) 6.43 3.33 51 BHT (sec) 9.64 IVC (L) 2.04 TLC (SB) (L) 3.48 AIRWAYS RESISTANCE Raw (cmH2O/L/s) 1.45 1.13 77 Gaw (L/s/cmH2O) 1.03 0.89 86 sRaw (cmH2O*s) 4.76 2.33 48 sGaw (1/cmH2O*s) 0.20 0.43 216 BLOOD GASES Hgb (gm/dL) 13.0
== END ==
LOC: M CARPUL 10:19
PROVIDERS: ATTEND Physician Assistant
DX: J84.10 Pulmonary fibrosis, unspecified (principal)

== ENCOUNTER → 2021-05-27 | Outpatient (CLI) | payer MEDICARE, BC, OTHER ==
--- NOTE | 2021-05-27 16:26 | REPVR ---
PROCEDURE INFORMATION: Exam: CT Chest Without Contrast; Diagnostic Exam date and time: 05/27/2021 1:46 PM Age: 70 years old Clinical indication: Condition or disease; Lung condition and disease; Pulmonary fibrosis; Patient HX: HX prostate CA, HX colorectal CA, HX hodgekins lymphoma. ; Additional info: Pulmonary fibrosis, unspecified TECHNIQUE: Imaging protocol: Diagnostic computed tomography of the chest without contrast. Radiation optimization: All CT scans at this facility use at least one of these dose optimization techniques: automated exposure control; mA and/or kV adjustment per patient size (includes targeted exams where dose is matched to clinical indication); or iterative reconstruction. COMPARISON: CT ANGIO CHEST 06/27/2020 3:12 AM FINDINGS: Mediastinum: 4.5 x 3.4 by 3.0 cm ovoid hypodense mass contiguous with the posterior aspect of the right thyroid lobe, which exhibits an attenuation value of 26 HU, indicative of high attenuation fluid. On the previous study, this measured 1.5 cm in diameter. Lungs: Stable 8 mm nodule in the superior segment of the right lower lobe (series 2: Image 53). For patients at low risk (minimal or absent history of smoking and of other known risk factors), recommend CT Chest at 6-12 months, then consider CT Chest at 18-24 months. For patients at high risk (history of smoking or of other known risk factors), recommend CT Chest at 6-12 months, then CT Chest at 18-24 months. (Reference: Vivek). COPD, bronchiectasis, and chronic bilateral interstitial disease. Pleural spaces: No pleural effusion. Heart: Coronary artery calcification. Aorta: Calcification and ectasia of the thoracic aorta. Lymph nodes: Stable mildly enlarged lymph nodes including 1.8 x 1.7 by 1.6 cm AP window and 1.6 x 1.1 by 1.2 cm subcarinal lymph nodes. Bones/joints: Osteopenia, degenerative change, and Schmorl's nodes. IMPRESSION: 1. Stable 8 mm nodule in the superior segment of the right lower lobe (series 2: Image 53). 2. COPD, bronchiectasis, and chronic bilateral interstitial disease. 3. 4.5 x 3.4 by 3.0 cm ovoid hypodense mass contiguous with the posterior aspect of the right thyroid lobe, which exhibits an attenuation value of 26 HU, indicative of high attenuation fluid. On the previous study, this measured 1.5 cm in diameter. 4. Additional findings as described above. COMMENTS: Consistent with the [employer]'s Incidental Findings Committee white paper (J Am Elsa Radiol 2015): In patients aged 35 years and older with an incidental thyroid nodule equal to or greater than 1.[address], MRI or extrathyroidal US, further evaluation with dedicated thyroid US is recommended for patients with normal life expectancy and without comorbidities. For smaller nodules without suspicious features, no further evaluation or follow up is recommended. Electronically signed by: Adriano Peres On 05/27/2021 16:25:22 PM
== END ==
LOC: M PLAIMG 12:37
PROVIDERS: ATTEND Physician Assistant
DX: J84.10 Pulmonary fibrosis, unspecified (principal); R91.1 Solitary pulmonary nodule; J44.9 Chronic obstructive pulmonary disease, unspecified

== ENCOUNTER → 2021-07-07 | Outpatient (CLI) | payer MEDICARE, BC, OTHER ==
[~2021-07-07] MED LIST changes: +ALBU83IN INH; +LIDOCAINE 1% MDV 20ML VIAL As Ordered ONE; +LOSA100T45 PO; -LOSA100T50 PO; +LOSA50TA28 PO; -LOSA50TA88 PO
[2021-07-07 10:07] VITALS: BP 188/90
== END ==
LOC: M IRPRO 09:13
PROVIDERS: ATTEND Otolaryngology
DX: R94.6 Abnormal results of thyroid function studies (principal)

== ENCOUNTER 2021-08-28 15:01 | Inpatient (IN) | payer MEDICARE, BC, OTHER ==
[~2021-08-28] VITALS: Ht 170.2 cm; Wt 49.8 kg
[~2021-08-28 15:01] MED LIST changes: -LIDOCAINE 1% MDV 20ML VIAL As Ordered ONE
[2021-08-28] MEDS ORDERED: ONDANSETRON 4MG/2ML VIAL IV ONE (15:10)
[2021-08-28] MEDS ORDERED: NS 1,000 ML IV ONE (15:10)
[2021-08-28] MEDS ORDERED: MORPHINE 4 MG/ML 1ML VIAL/SYRINGE (J2270) IV ONE (15:10)
[2021-08-28] MEDS: METOPROLOL 5 MG/5 ML VIAL IV SCH ×3 (15:19→15:51)
[2021-08-28 15:44] LABS: BASO % 0.1 % (0.0-1.0); EOS % 0.3 % (0.0-3.0); HEMATOCRIT 42.9 % (42.0-52.0); HEMOGLOBIN 13.8 g/dl (13.5-17.5); LYMPH % 7.1 % (24.0-44.0); MEAN CORPUSCULAR HEMOGLOBIN 29.1 pg (27.0-33.0); MEAN CORPUSCULAR HGB CONC 32.2 g/dl (32.0-36.5); MEAN CORPUSCULAR VOLUME 90.5 fl (80.0-96.0); MONO # 0.8 10^3/uL (0.0-0.8); MONO % 6.1 % (2.0-8.0); NEUTROPHILS # 11.5 10^3/uL (1.5-8.5); NEUTROPHILS % 86.1 % (36.0-66.0); PLATELET COUNT, AUTOMATED 343 10^3/uL (150-450); RED BLOOD COUNT 4.74 10^6/uL (4.30-6.10); WHITE BLOOD COUNT 13.4 10^3/uL (4.0-10.0)
[2021-08-28 15:55] LABS: INR 0.98; PROTHROMBIN TIME 13.4 SECONDS (12.7-14.5)
[2021-08-28 15:56] LABS: PARTIAL THROMBOPLASTIN TIME 30.4 SECONDS (25.9-37.0)
[2021-08-28] MEDS ORDERED: ISOVUE-370 76% 100ML VIAL As Ordered ONE (15:57)
[2021-08-28 16:08] LABS: ALBUMIN 4.1 GM/DL (3.2-5.2); BILIRUBIN,DIRECT 0.2 MG/DL (0.0-0.2); BILIRUBIN,TOTAL 0.5 MG/DL (0.2-1.0); TOTAL PROTEIN 8.7 GM/DL (6.4-8.2)
[2021-08-28 16:09] LABS: CK-MB VALUE MASS 2.8 NG/ML (<3.6); MB/CK RELATIVE INDEX 2.17 (< OR =4)
[2021-08-28] MEDS ORDERED: hydrALAZINE 20MG/ML 1ML VIAL (J0360 PER 20MG) IV ONE (16:20)
[2021-08-28 16:25] LABS: RSV AMPLIFICATION NEGATIVE (NEGATIVE)
[2021-08-28] MEDS ORDERED: METF500T13 PO (17:47)
[2021-08-28] MEDS ORDERED: HOME MED LIST COMPLETE! XX SCH (17:50)
[2021-08-28] MEDS ORDERED: MORPHINE 4 MG/ML 1ML VIAL/SYRINGE (J2270) IV PRN ×2 (17:55)
[2021-08-28] MEDS ORDERED: LIDOCAINE 2% 5ML JELLY UROJET TOP ONE (17:55)
[2021-08-28] MEDS ORDERED: ONDANSETRON 4MG/2ML VIAL IV PRN (18:35)
[2021-08-28] MEDS ORDERED: GLUCAGON INJ 1MG VIAL SC PRN (18:45)
[2021-08-28] MEDS ORDERED: GLUCOSE 4GM CHEW TABLET PO PRN (18:45)
[2021-08-28] MEDS ORDERED: DEXTROSE 50% 50 ML SYRINGE IV PRN (18:45)
[2021-08-28] MEDS ORDERED: hydrALAZINE 20MG/ML 1ML VIAL (J0360 PER 20MG) IV PRN (18:50)
[2021-08-28 19:10] LABS: HEMOGLOBIN A1c 6.1 %
[2021-08-28 19:19] LABS: THYROID STIMULATING HORMONE 0.776 uIU/ML (0.358-3.740)
[2021-08-28] MEDS: PANTOPRAZOLE 40MG VIAL (C9113 PER 1) IV SCH (19:39)
[2021-08-28] MEDS: NS 1,000 ML IV SCH (19:40)
[2021-08-28] MEDS: HumaLOG INSULIN (NovoLOG) PER UNIT SC SCH (19:55)
[2021-08-28 20:30] VITALS: BP 128/73
[2021-08-29] VITALS (9 sets, daily range): BP systolic 113–184; BP diastolic 63–92
[2021-08-29] MEDS: NS 1,000 ML IV SCH ×2 (00:35→08:06)
[2021-08-29 05:11] LABS: HEMATOCRIT 37.7 % (42.0-52.0); HEMOGLOBIN 12.2 g/dl (13.5-17.5); MEAN CORPUSCULAR HEMOGLOBIN 29.6 pg (27.0-33.0); MEAN CORPUSCULAR HGB CONC 32.4 g/dl (32.0-36.5); MEAN CORPUSCULAR VOLUME 91.5 fl (80.0-96.0); PLATELET COUNT, AUTOMATED 284 10^3/uL (150-450); RED BLOOD COUNT 4.12 10^6/uL (4.30-6.10); WHITE BLOOD COUNT 10.3 10^3/uL (4.0-10.0)
[2021-08-29 05:35] LABS: ALBUMIN 3.3 GM/DL (3.2-5.2); ALT/SGPT 12 U/L (12-78); BILIRUBIN,TOTAL 0.5 MG/DL (0.2-1.0); BLOOD UREA NITROGEN 11 MG/DL (7-18); CALCIUM LEVEL 8.8 MG/DL (8.8-10.2); CARBON DIOXIDE LEVEL 30 MEQ/L (21-32); CHLORIDE LEVEL 107 MEQ/L (98-107); CREATININE FOR GFR 0.82 MG/DL (0.70-1.30); GLOMERULAR FILTRATION RATE > 60.0 (>42); GLUCOSE, FASTING 117 MG/DL (70-100); POTASSIUM SERUM 4.6 MEQ/L (3.5-5.1); SODIUM LEVEL 140 MEQ/L (136-145); TOTAL PROTEIN 7.8 GM/DL (6.4-8.2)
[2021-08-29] MEDS: HumaLOG INSULIN (NovoLOG) PER UNIT SC SCH ×4 (06:00→18:00)
[2021-08-29] MEDS ORDERED: KCL 20MEQ IN 0.45NS 1000ML 1,000 ML IV SCH (09:55)
[2021-08-29] MEDS ORDERED: ONDANSETRON 4MG/2ML VIAL As Ordered ONE (13:36)
[2021-08-29] MEDS ORDERED: propofoL 200 MG/20 ML VIAL As Ordered ONE (13:36)
[2021-08-29] MEDS ORDERED: LIDOCAINE 2% 100MG/5ML SDV (FOR ANES.) As Ordered ONE (13:36)
[2021-08-29] MEDS ORDERED: ROCURONIUM BROMIDE 50 MG/5 ML VIAL As Ordered ONE ×3 (13:36→17:35)
[2021-08-29] MEDS ORDERED: BUPIVACAINE HCL 0.25% 30ML VIAL As Ordered ONE (14:35)
[2021-08-29] MEDS ORDERED: fentaNYL 100 MCG/2 ML INJECTION As Ordered ONE (14:38)
[2021-08-29] MEDS ORDERED: MIDAZOLAM INJ 2MG/2ML VIAL (J2250 PER 1MG) As Ordered ONE (14:38)
[2021-08-29] MEDS ORDERED: PHENYLEPHRINE 10MG/ML 1ML VIAL (J2370 PER 1) As Ordered ONE (15:38)
[2021-08-29] MEDS ORDERED: PHENYLephrine 500MCG 5ML (100MCG/ML) SYRINGE As Ordered ONE ×2 (15:38→18:39)
[2021-08-29] MEDS ORDERED: HYDROmorphone HCL 2MG/ML 1ML VIAL As Ordered ONE (17:16)
[2021-08-29] MEDS ORDERED: SUGAMMADEX SODIUM 500 MG/5 ML VIAL (BRIDION) As Ordered ONE (18:24)
[2021-08-29] MEDS: PANTOPRAZOLE 40MG VIAL (C9113 PER 1) IV SCH (19:00)
[2021-08-29] MEDS ORDERED: fentaNYL 100 MCG/2 ML INJECTION IV PRN (19:45)
[2021-08-29] MEDS ORDERED: oxyCODONE 5MG TAB PO PRN (19:45)
[2021-08-29] MEDS ORDERED: LR 1,000 ML IV SCH (19:45)
[2021-08-29] MEDS ORDERED: ONDANSETRON 4MG/2ML VIAL IV PRN (19:45)
[2021-08-29] MEDS ORDERED: ACETAMINOPHEN TAB 650MG DOSE (2X325MG) PO PRN (19:45)
[2021-08-29] MEDS ORDERED: HYDROMORPHONE HCL 0.5 MG/ 0.5 ML SYRINGE (J1170 PER 1) IV PRN (19:45)
[2021-08-29] MEDS ORDERED: MORPHINE 4 MG/ML 1ML VIAL/SYRINGE (J2270) IV PRN (20:05)
[2021-08-29] MEDS: hydrALAZINE 20MG/ML 1ML VIAL (J0360 PER 20MG) IV PRN ×2 (20:06→20:16)
[2021-08-30] MEDS: NORCO, ANEXSIA 5/325MG TABLET (HYDROcodone/ACETAMINOPHEN) PO PRN ×3 (02:58→20:45)
[2021-08-30 04:15] VITALS: BP 171/92
[2021-08-30 05:08] LABS: HEMATOCRIT 38.8 % (42.0-52.0); HEMOGLOBIN 12.4 g/dl (13.5-17.5); MEAN CORPUSCULAR VOLUME 90.9 fl (80.0-96.0); PLATELET COUNT, AUTOMATED 290 10^3/uL (150-450); RED BLOOD COUNT 4.27 10^6/uL (4.30-6.10); WHITE BLOOD COUNT 12.8 10^3/uL (4.0-10.0)
[2021-08-30 05:31] LABS: ALBUMIN 3.3 GM/DL (3.2-5.2); ALT/SGPT 10 U/L (12-78); BILIRUBIN,TOTAL 0.6 MG/DL (0.2-1.0); BLOOD UREA NITROGEN 13 MG/DL (7-18); CALCIUM LEVEL 8.5 MG/DL (8.8-10.2); CARBON DIOXIDE LEVEL 30 MEQ/L (21-32); CHLORIDE LEVEL 102 MEQ/L (98-107); CREATININE FOR GFR 0.84 MG/DL (0.70-1.30); GLOMERULAR FILTRATION RATE > 60.0 (>42); GLUCOSE, FASTING 155 MG/DL (70-100); SODIUM LEVEL 137 MEQ/L (136-145); TOTAL PROTEIN 7.9 GM/DL (6.4-8.2)
[2021-08-30] MEDS: HumaLOG INSULIN (NovoLOG) PER UNIT SC SCH ×5 (05:36→21:00)
[2021-08-30 08:18] VITALS: BP 155/88
[2021-08-30] MEDS ORDERED: DEXTROSE 50% 50 ML SYRINGE IV PRN (11:50)
[2021-08-30] MEDS ORDERED: GLUCOSE 4GM CHEW TABLET PO PRN (11:50)
[2021-08-30] MEDS ORDERED: GLUCAGON INJ 1MG VIAL SC PRN (11:50)
[2021-08-30 12:29] VITALS: BP 152/76
[2021-08-30] MEDS: HEPARIN SOD (PORCINE) 5000UNITS/ML 1ML VIAL/SYRINGE SQ SCH ×2 (14:00→21:23)
[2021-08-30] MEDS: LOSARTAN 50MG TABLET PO SCH (14:02)
[2021-08-30] MEDS: ATORVASTATIN 10 MG TAB PO SCH (14:02)
[2021-08-30] MEDS: PANTOPRAZOLE 40MG TAB (PROTONIX) PO SCH (14:03)
[2021-08-30 17:05] VITALS: BP 132/83
[2021-08-30 19:56] VITALS: BP 173/77
[2021-08-31 00:34] VITALS: BP 130/79
[2021-08-31 04:15] VITALS: BP 161/92
[2021-08-31 05:34] LABS: HEMATOCRIT 39.9 % (42.0-52.0); HEMOGLOBIN 12.8 g/dl (13.5-17.5); MEAN CORPUSCULAR HEMOGLOBIN 29.2 pg (27.0-33.0); MEAN CORPUSCULAR HGB CONC 32.1 g/dl (32.0-36.5); MEAN CORPUSCULAR VOLUME 91.1 fl (80.0-96.0); PLATELET COUNT, AUTOMATED 281 10^3/uL (150-450); RED BLOOD COUNT 4.38 10^6/uL (4.30-6.10); WHITE BLOOD COUNT 13.5 10^3/uL (4.0-10.0)
[2021-08-31 05:58] LABS: BLOOD UREA NITROGEN 17 MG/DL (7-18); CALCIUM LEVEL 9.2 MG/DL (8.8-10.2); CARBON DIOXIDE LEVEL 30 MEQ/L (21-32); CHLORIDE LEVEL 104 MEQ/L (98-107); CREATININE FOR GFR 0.99 MG/DL (0.70-1.30); GLOMERULAR FILTRATION RATE > 60.0 (>42); GLUCOSE, FASTING 132 MG/DL (70-100); MAGNESIUM LEVEL 1.8 MG/DL (1.8-2.4); PHOSPHORUS LEVEL 2.2 MG/DL (2.5-4.9); POTASSIUM SERUM 4.3 MEQ/L (3.5-5.1); SODIUM LEVEL 142 MEQ/L (136-145)
[2021-08-31] MEDS: HEPARIN SOD (PORCINE) 5000UNITS/ML 1ML VIAL/SYRINGE SQ SCH ×3 (06:29→20:46)
[2021-08-31] MEDS: HumaLOG INSULIN (NovoLOG) PER UNIT SC SCH ×4 (07:30→20:14)
[2021-08-31] MEDS: K-PHOS ORIGINAL (POT.ACID PHOSPHATE) 500MG TAB PO SCH ×2 (08:03→20:46)
[2021-08-31] MEDS: LOSARTAN 50MG TABLET PO SCH (08:05)
[2021-08-31] MEDS: PANTOPRAZOLE 40MG TAB (PROTONIX) PO SCH (08:06)
[2021-08-31] MEDS: ATORVASTATIN 10 MG TAB PO SCH (08:06)
[2021-08-31 08:22] VITALS: BP 158/98
[2021-08-31] MEDS ORDERED: FUROSEMIDE 20MG/2ML VIAL (J1940) IV ONE (09:30)
[2021-08-31] MEDS ORDERED: MIRALAX *UNIT DOSE* 17GM PACKET PO ONE (10:00)
[2021-08-31] MEDS ORDERED: ISOVUE-370 76% 100ML VIAL As Ordered ONE (10:05)
[2021-08-31] MEDS: DOCUSATE SODIUM 100MG CAPSULE PO SCH ×3 (11:29→20:46)
[2021-08-31 12:22] VITALS: BP 158/64
[2021-08-31] MEDS: BENZONATATE 100MG CAPSULE PO PRN ×2 (13:18→20:46)
[2021-08-31] MEDS: predniSONE 20 MG TAB PO SCH (18:09)
[2021-08-31] MEDS: ADVAIR HFA 115/21MCG INHALER INH SCH (19:38)
[2021-08-31 20:00] VITALS: BP 144/75
[2021-09-01] VITALS: BP 136/79
[2021-09-01 04:00] VITALS: BP 132/65
[2021-09-01 04:21] LABS: HEMATOCRIT 36.6 % (42.0-52.0); HEMOGLOBIN 11.8 g/dl (13.5-17.5); MEAN CORPUSCULAR HEMOGLOBIN 29.2 pg (27.0-33.0); MEAN CORPUSCULAR HGB CONC 32.2 g/dl (32.0-36.5); MEAN CORPUSCULAR VOLUME 90.6 fl (80.0-96.0); PLATELET COUNT, AUTOMATED 269 10^3/uL (150-450); RED BLOOD COUNT 4.04 10^6/uL (4.30-6.10); WHITE BLOOD COUNT 10.5 10^3/uL (4.0-10.0)
[2021-09-01 04:46] LABS: BLOOD UREA NITROGEN 20 MG/DL (7-18); CARBON DIOXIDE LEVEL 30 MEQ/L (21-32); CHLORIDE LEVEL 104 MEQ/L (98-107); CREATININE FOR GFR 0.92 MG/DL (0.70-1.30); GLOMERULAR FILTRATION RATE > 60.0 (>42); GLUCOSE, FASTING 163 MG/DL (70-100); POTASSIUM SERUM 3.8 MEQ/L (3.5-5.1); SODIUM LEVEL 138 MEQ/L (136-145)
[2021-09-01] MEDS: HEPARIN SOD (PORCINE) 5000UNITS/ML 1ML VIAL/SYRINGE SQ SCH (06:07)
[2021-09-01] MEDS: ADVAIR HFA 115/21MCG INHALER INH SCH (07:42)
[2021-09-01] MEDS ORDERED: TIOTROPIUM INHALER/CAPSULE (SPIRIVA) INH SCH (08:00)
[2021-09-01 08:23] VITALS: BP 166/90
[2021-09-01] MEDS ORDERED: BENZ-18 PO (08:26)
[2021-09-01] MEDS ORDERED: ADVA115A INH (08:26)
[2021-09-01] MEDS ORDERED: PRED10TA2 PO (08:26)
[2021-09-01] MEDS: DOCUSATE SODIUM 100MG CAPSULE PO SCH (08:26)
[2021-09-01] MEDS ORDERED: COLA100C5 PO (08:26)
[2021-09-01 08:27] VITALS: BP 166/90
[2021-09-01] MEDS: HumaLOG INSULIN (NovoLOG) PER UNIT SC SCH (08:27)
[2021-09-01] MEDS: ATORVASTATIN 10 MG TAB PO SCH (08:27)
[2021-09-01] MEDS: PANTOPRAZOLE 40MG TAB (PROTONIX) PO SCH (08:27)
[2021-09-01] MEDS: predniSONE 20 MG TAB PO SCH (08:27)
[2021-09-01] MEDS: LOSARTAN 50MG TABLET PO SCH (08:27)
[2021-09-01] MEDS ORDERED: MOM 30ML SUSPENSION UDC PO ONE (08:30)
[2021-09-01] MEDS ORDERED: SPIR1CAP INH (08:35)
[2021-09-01] MEDS ORDERED: DOXY-342 PO (08:41)
[2021-09-01] MEDS ORDERED: DOXYCYCLINE HYCLATE 100MG TABLET PO SCH (09:00)
[2021-09-01] MEDS ORDERED: CEFD300C41 PO (11:09)
== END 2021-09-01 11:11 | disposition home health service (06) | DRG 353 ==
LOC: M ED 15:01 → M ED INP 18:30 → ENRESERV 19:32 → M PCU 20:30
PROVIDERS: ADMIT Internal Medicine; ATTEND Internal Medicine
PROC: 8E0W4CZ Robotic Assisted Procedure of Trunk Region, Percutaneous Endoscopic Approach (ICD-10-PCS; 2021-08-29)
PROC: 0WUF4JZ Supplement Abdominal Wall with Synthetic Substitute, Percutaneous Endoscopic Approach (ICD-10-PCS; principal; 2021-08-29 15:30)
DX: K43.6 Other and unspecified ventral hernia with obstruction, without gangrene (principal); J81.0 Acute pulmonary edema; J44.1 Chronic obstructive pulmonary disease with (acute) exacerbation; I16.0 Hypertensive urgency; R73.03 Prediabetes; E78.5 Hyperlipidemia, unspecified; Z85.038 Personal history of other malignant neoplasm of large intestine; Z85.46 Personal history of malignant neoplasm of prostate; Z85.71 Personal history of Hodgkin lymphoma; E07.9 Disorder of thyroid, unspecified; E53.8 Deficiency of other specified B group vitamins; K21.9 Gastro-esophageal reflux disease without esophagitis; I10 Essential (primary) hypertension; Z85.828 Personal history of other malignant neoplasm of skin; R22.41 Localized swelling, mass and lump, right lower limb; Z87.891 Personal history of nicotine dependence; Z20.822 Contact with and (suspected) exposure to COVID-19; Z79.84 Long term (current) use of oral hypoglycemic drugs; Z79.899 Other long term (current) drug therapy; Z88.1 Allergy status to other antibiotic agents; Z91.030 Bee allergy status; R00.0 Tachycardia, unspecified; J84.10 Pulmonary fibrosis, unspecified

== ENCOUNTER → 2021-10-06 | Outpatient (REF) | payer MEDICARE, BC, OTHER ==
[~2021-10-06] MED LIST changes: +ADVA115A INH; +BENZ-18 PO; +CEFD300C41 PO; +COLA100C5 PO; +DOXY-342 PO; +METF500T13 PO; +PRED10TA2 PO; +SPIR1CAP INH
[2021-10-06 13:15] LABS: BLOOD UREA NITROGEN 14 MG/DL (7-18); CALCIUM LEVEL 9.8 MG/DL (8.8-10.2); CARBON DIOXIDE LEVEL 30 MEQ/L (21-32); CHLORIDE LEVEL 100 MEQ/L (98-107); GLOMERULAR FILTRATION RATE > 60.0 (>42); GLUCOSE, FASTING 99 MG/DL (70-100); POTASSIUM SERUM 4.8 MEQ/L (3.5-5.1); SODIUM LEVEL 139 MEQ/L (136-145)
== END ==
LOC: M WUC 12:14
PROVIDERS: ATTEND Student in an Organized Health Care Education/Training Program
DX: E07.9 Disorder of thyroid, unspecified (principal); Z01.818 Encounter for other preprocedural examination

== ENCOUNTER 2022-02-24 12:52 | Observation (INO) | payer MEDICARE, BC, OTHER ==
[~2022-02-24] VITALS: Ht 170.2 cm; Wt 77.3 kg
[~2022-02-24 12:52] MED LIST changes: -AFRI0.058; +ALBU2.5V10 INH; -ALBU83IN INH; +AMOX875T2 PO; +ATOR1TAB19 GT; -ATOR1TAB19 PO; -BENI1TAB3 PO; +OLME20TA55 PO; +OXYM15SP2
[2022-02-24 14:48] LABS: HEMATOCRIT 28.2 % (42.0-52.0); HEMOGLOBIN 8.7 g/dl (13.5-17.5); MEAN CORPUSCULAR HGB CONC 30.9 g/dl (32.0-36.5); PLATELET COUNT, AUTOMATED 301 10^3/uL (150-450); WHITE BLOOD COUNT 2.6 10^3/uL (4.0-10.0)
[2022-02-24 15:16] LABS: ALBUMIN 2.3 GM/DL (3.2-5.2); ALT/SGPT 27 U/L (12-78); BILIRUBIN,DIRECT < 0.1 MG/DL (0.0-0.2); BILIRUBIN,TOTAL 0.3 MG/DL (0.2-1.0); BLOOD UREA NITROGEN 10 MG/DL (7-18); CALCIUM LEVEL 8.7 MG/DL (8.8-10.2); CARBON DIOXIDE LEVEL 30 MEQ/L (21-32); CHLORIDE LEVEL 97 MEQ/L (98-107); CREATININE FOR GFR 0.48 MG/DL (0.70-1.30); GLOMERULAR FILTRATION RATE > 60.0 (>42); GLUCOSE, FASTING 118 MG/DL (70-100); LIPASE 135 U/L (73-393); SODIUM LEVEL 132 MEQ/L (136-145); TOTAL PROTEIN 6.9 GM/DL (6.4-8.2)
[2022-02-24 15:25] LABS: BASOPHILS 1 % (0-1); LYMPHOCYTES 6 % (16-44); METAMYELOCYTES 1 % (0-0); MONOCYTES 20 % (0-5); MYELOCYTES 4 % (0-0); NEUTROPHILS 48 % (28-66)
[2022-02-24 15:26] LABS: POLYCHROMASIA 1+; TEAR DROP CELLS 1+
[2022-02-24 15:27] LABS: GIANT PLATELETS 1+; PLATELET ESTIMATE NORMAL (NORMAL)
[2022-02-24] MEDS: GASTROGRAFIN SOLUTION 30ML PO SCH (16:00)
[2022-02-24] MEDS ORDERED: NS 500 ML IV ONE (17:45)
[2022-02-24] MEDS ORDERED: PIPERACILLIN/TAZOBACTAM SOD 4.5 GM in D5W MINI-BAG PLUS 50 ML IV ONE (19:35)
[2022-02-24] MEDS ORDERED: OXYC5SOL11 PO (20:41)
[2022-02-24] MEDS ORDERED: EQ M1TAB4 GT (20:41)
[2022-02-24] MEDS ORDERED: GABA250S6 PO (20:46)
[2022-02-24] MEDS ORDERED: SUCR1TAB56 GT (20:46)
[2022-02-24] MEDS ORDERED: [UNRECOGNIZED DRUG - OTHER] PO (20:46)
[2022-02-24] MEDS ORDERED: NYST-13 TOP (20:47)
[2022-02-24] MEDS ORDERED: [UNRECOGNIZED DRUG - OTHER] (20:49)
[2022-02-24] MEDS ORDERED: HOME MED LIST COMPLETE! XX SCH (20:50)
[2022-02-24] MEDS ORDERED: NYSTATIN 100,000 UNITS/GM TOPICAL PWD 15 GM TOP SCH (21:00)
[2022-02-24] MEDS: HEPARIN SOD (PORCINE) 5000UNITS/ML 1ML VIAL/SYRINGE SC SCH (22:00)
[2022-02-24] MEDS ORDERED: NS 0.45% 1,000 ML IV SCH (22:15)
[2022-02-24 23:34] LABS: RSV AMPLIFICATION NEGATIVE (NEGATIVE)
[2022-02-25] MEDS ORDERED: cefTRIAXone SOD 1 GM in D5W MINI-BAG PLUS 50 ML IV SCH (02:00)
[2022-02-25 02:15] VITALS: BP 142/78
[2022-02-25] MEDS: MUPIROCIN 2% OINT 22 GM TUBE TOP SCH ×2 (02:33→10:42)
[2022-02-25] MEDS: HEPARIN SOD (PORCINE) 5000UNITS/ML 1ML VIAL/SYRINGE SC SCH (05:13)
[2022-02-25 06:00] VITALS: BP 146/72
[2022-02-25 06:25] LABS: BASO % 0.7 % (0.0-1.0); HEMATOCRIT 26.5 % (42.0-52.0); HEMOGLOBIN 8.5 g/dl (13.5-17.5); LYMPH # 0.1 10^3/uL (1.5-5.0); LYMPH % 4.9 % (24.0-44.0); MEAN CORPUSCULAR HGB CONC 32.1 g/dl (32.0-36.5); MEAN CORPUSCULAR VOLUME 93.6 fl (80.0-96.0); MONO % 34.3 % (2.0-8.0); NEUTROPHILS # 1.6 10^3/uL (1.5-8.5); NEUTROPHILS % 56.2 % (36.0-66.0); PLATELET COUNT, AUTOMATED 307 10^3/uL (150-450); RED BLOOD COUNT 2.83 10^6/uL (4.30-6.10); WHITE BLOOD COUNT 2.8 10^3/uL (4.0-10.0)
[2022-02-25 07:01] LABS: BLOOD UREA NITROGEN 8 MG/DL (7-18); CALCIUM LEVEL 8.6 MG/DL (8.8-10.2); CARBON DIOXIDE LEVEL 30 MEQ/L (21-32); CHLORIDE LEVEL 98 MEQ/L (98-107); CREATININE FOR GFR 0.55 MG/DL (0.70-1.30); GLOMERULAR FILTRATION RATE > 60.0 (>42); GLUCOSE, FASTING 97 MG/DL (70-100); POTASSIUM SERUM 4.4 MEQ/L (3.5-5.1); SODIUM LEVEL 134 MEQ/L (136-145)
[2022-02-25] MEDS ORDERED: MUPI2OI TOP (09:52)
== END 2022-02-25 11:31 | disposition home or self-care (01) ==
LOC: EDBD 12:52 → M ED 12:52 → M ED INP 12:53 → ENRESERV 02-25 01:16 → M MSPAV 02-25 02:00
PROVIDERS: ADMIT Internal Medicine; ATTEND Family Medicine
DX: A41.9 Sepsis, unspecified organism (principal); D46.A Refractory cytopenia with multilineage dysplasia; C73 Malignant neoplasm of thyroid gland; L58.0 Acute radiodermatitis; K21.9 Gastro-esophageal reflux disease without esophagitis; R19.7 Diarrhea, unspecified; E87.1 Hypo-osmolality and hyponatremia; R00.0 Tachycardia, unspecified; Z92.3 Personal history of irradiation; Z92.21 Personal history of antineoplastic chemotherapy; Z85.71 Personal history of Hodgkin lymphoma; Z85.828 Personal history of other malignant neoplasm of skin; Z85.46 Personal history of malignant neoplasm of prostate; Z87.891 Personal history of nicotine dependence; Z79.899 Other long term (current) drug therapy; Z91.030 Bee allergy status; Z88.1 Allergy status to other antibiotic agents; Z88.8 Allergy status to other drugs, medicaments and biological substances; I10 Essential (primary) hypertension; R73.09 Other abnormal glucose; E78.00 Pure hypercholesterolemia, unspecified
CPT/HCPCS: 36415; 51701; 71045; 74176; 80048; 80076; 83605; 83690; 85025; 87040; 87631; 93041; 94760; 96361; 96365; 96367; 96372; 96375; 99285; G0378; J0696; J1644; J2543; Q9963

== ENCOUNTER 2022-03-05 10:09 | Emergency (ER) | payer MEDICARE, BC, OTHER ==
[~2022-03-05] VITALS: Ht 170.2 cm; Wt 72.7 kg
[~2022-03-05 10:09] MED LIST changes: +EQ M1TAB4 GT; +GABA250S6 PO; +MUPI2OI TOP; +NYST-13 TOP; +OXYC5SOL11 PO; +SUCR1TAB56 GT; +[UNRECOGNIZED DRUG - OTHER]; +[UNRECOGNIZED DRUG - OTHER] PO
[2022-03-05] MEDS ORDERED: NS 1,000 ML IV ONE (10:25)
[2022-03-05 10:52] LABS: BASO % 0.4 % (0.0-1.0); EOS # 0.1 10^3/uL (0.0-0.5); EOS % 0.9 % (0.0-3.0); HEMATOCRIT 29.7 % (42.0-52.0); HEMOGLOBIN 9.1 g/dl (13.5-17.5); LYMPH # 0.3 10^3/uL (1.5-5.0); LYMPH % 3.8 % (24.0-44.0); MEAN CORPUSCULAR HGB CONC 30.6 g/dl (32.0-36.5); MEAN CORPUSCULAR VOLUME 94.6 fl (80.0-96.0); MONO # 1.5 10^3/uL (0.0-0.8); MONO % 18.4 % (2.0-8.0); NEUTROPHILS # 5.7 10^3/uL (1.5-8.5); NEUTROPHILS % 71.7 % (36.0-66.0); PLATELET COUNT, AUTOMATED 366 10^3/uL (150-450); RED BLOOD COUNT 3.14 10^6/uL (4.30-6.10); WHITE BLOOD COUNT 7.9 10^3/uL (4.0-10.0)
[2022-03-05 11:30] LABS: ALBUMIN 2.4 GM/DL (3.2-5.2); ALT/SGPT 23 U/L (12-78); BILIRUBIN,TOTAL 0.3 MG/DL (0.2-1.0); BLOOD UREA NITROGEN 13 MG/DL (7-18); CALCIUM LEVEL 8.9 MG/DL (8.8-10.2); CARBON DIOXIDE LEVEL 30 MEQ/L (21-32); CHLORIDE LEVEL 97 MEQ/L (98-107); CREATININE FOR GFR 0.62 MG/DL (0.70-1.30); GLOMERULAR FILTRATION RATE > 60.0 (>42); GLUCOSE, FASTING 187 MG/DL (70-100); MAGNESIUM LEVEL 1.9 MG/DL (1.8-2.4); POTASSIUM SERUM 4.5 MEQ/L (3.5-5.1); SODIUM LEVEL 133 MEQ/L (136-145); TOTAL PROTEIN 7.1 GM/DL (6.4-8.2)
[2022-03-05 12:45] VITALS: BP 142/79
== END 2022-03-05 13:05 | disposition home or self-care (01) ==
LOC: M ED 10:09
DX: E86.0 Dehydration (principal); R00.0 Tachycardia, unspecified; E11.9 Type 2 diabetes mellitus without complications; E78.5 Hyperlipidemia, unspecified; I10 Essential (primary) hypertension; J44.9 Chronic obstructive pulmonary disease, unspecified; Z85.850 Personal history of malignant neoplasm of thyroid; Z85.038 Personal history of other malignant neoplasm of large intestine; Z85.46 Personal history of malignant neoplasm of prostate; Z85.72 Personal history of non-Hodgkin lymphomas; Z92.3 Personal history of irradiation; Z87.891 Personal history of nicotine dependence; Z79.899 Other long term (current) drug therapy; Z88.8 Allergy status to other drugs, medicaments and biological substances; Z91.030 Bee allergy status

== ENCOUNTER 2022-03-07 10:46 | Emergency (ER) | payer MEDICARE, BC, OTHER ==
[~2022-03-07] VITALS: Ht 170.2 cm; Wt 73.5 kg
[2022-03-07] MEDS ORDERED: NS 1,000 ML IV ONE (12:35)
[2022-03-07] MEDS ORDERED: SODIUM CHLORIDE 0.9% INJ 10 ML SYR IV PRN (12:35)
[2022-03-07 13:10] LABS: BASO % 0.4 % (0.0-1.0); EOS # 0.1 10^3/uL (0.0-0.5); EOS % 0.9 % (0.0-3.0); HEMATOCRIT 32.9 % (42.0-52.0); HEMOGLOBIN 9.9 g/dl (13.5-17.5); LYMPH # 0.4 10^3/uL (1.5-5.0); LYMPH % 5.1 % (24.0-44.0); MEAN CORPUSCULAR HEMOGLOBIN 28.5 pg (27.0-33.0); MEAN CORPUSCULAR HGB CONC 30.1 g/dl (32.0-36.5); MEAN CORPUSCULAR VOLUME 94.8 fl (80.0-96.0); MONO # 1.2 10^3/uL (0.0-0.8); MONO % 16.7 % (2.0-8.0); NEUTROPHILS # 5.5 10^3/uL (1.5-8.5); NEUTROPHILS % 74.2 % (36.0-66.0); PLATELET COUNT, AUTOMATED 342 10^3/uL (150-450); RED BLOOD COUNT 3.47 10^6/uL (4.30-6.10); WHITE BLOOD COUNT 7.4 10^3/uL (4.0-10.0)
[2022-03-07 13:27] LABS: BLOOD UREA NITROGEN 13 MG/DL (7-18); CALCIUM LEVEL 9.1 MG/DL (8.8-10.2); CARBON DIOXIDE LEVEL 31 MEQ/L (21-32); CHLORIDE LEVEL 99 MEQ/L (98-107); CREATININE FOR GFR 0.56 MG/DL (0.70-1.30); GLOMERULAR FILTRATION RATE > 60.0 (>42); GLUCOSE, FASTING 109 MG/DL (70-100); POTASSIUM SERUM 4.2 MEQ/L (3.5-5.1); SODIUM LEVEL 134 MEQ/L (136-145)
[2022-03-07 15:15] VITALS: BP 178/100
== END 2022-03-07 15:20 | disposition home or self-care (01) ==
LOC: M ED 10:46
DX: E86.0 Dehydration (principal); C73 Malignant neoplasm of thyroid gland; Z92.21 Personal history of antineoplastic chemotherapy; Z92.3 Personal history of irradiation; E11.9 Type 2 diabetes mellitus without complications; I10 Essential (primary) hypertension; E78.5 Hyperlipidemia, unspecified; Z85.038 Personal history of other malignant neoplasm of large intestine; Z85.46 Personal history of malignant neoplasm of prostate; Z85.72 Personal history of non-Hodgkin lymphomas; Z79.899 Other long term (current) drug therapy; Z88.8 Allergy status to other drugs, medicaments and biological substances; Z88.1 Allergy status to other antibiotic agents; Z91.030 Bee allergy status

== ENCOUNTER → 2022-03-30 | Outpatient (CLI) | payer MEDICARE, BC, OTHER ==
[~2022-03-30] MED LIST changes: +ISOVUE-370 76% 100ML VIAL As Ordered ONE
== END ==
LOC: M RAD 15:09
PROVIDERS: ATTEND Radiology Radiation Oncology
DX: C73 Malignant neoplasm of thyroid gland (principal); I70.0 Atherosclerosis of aorta; I25.10 Atherosclerotic heart disease of native coronary artery without angina pectoris; I31.39 Other pericardial effusion (noninflammatory); I51.7 Cardiomegaly; Z93.1 Gastrostomy status; Z95.828 Presence of other vascular implants and grafts; M51.44 Schmorl's nodes, thoracic region; M51.34 Other intervertebral disc degeneration, thoracic region
CPT/HCPCS: 70491; 71260; Q9967

== ENCOUNTER → 2022-07-25 | Outpatient (CLI) | payer MEDICARE, BC, OTHER ==
[~2022-07-25] MED LIST changes: -DOXY-342 PO; +DOXY100C81 PO; -ISOVUE-370 76% 100ML VIAL As Ordered ONE
== END ==
LOC: M CARPUL 14:21
PROVIDERS: ATTEND Internal Medicine Pulmonary Disease
DX: R05.9 Cough, unspecified (principal)

== ENCOUNTER → 2022-08-17 | Outpatient (REF) | payer MEDICARE, OTHER ==
[2022-08-17 14:03] LABS: HEMATOCRIT 40.3 % (42.0-52.0); HEMOGLOBIN 12.5 g/dl (13.5-17.5); MEAN CORPUSCULAR HEMOGLOBIN 28.5 pg (27.0-33.0); MEAN CORPUSCULAR VOLUME 91.8 fl (80.0-96.0); PLATELET COUNT, AUTOMATED 341 10^3/uL (150-450); RED BLOOD COUNT 4.39 10^6/uL (4.30-6.10); WHITE BLOOD COUNT 7.2 10^3/uL (4.0-10.0)
[2022-08-17 14:15] LABS: HEMOGLOBIN A1c 6.2 % (4.0-6.0)
[2022-08-17 14:29] LABS: FREE T4 1.05 NG/DL (0.89-1.76); THYROID STIMULATING HORMONE 1.665 uIU/ML (0.55-4.78)
[2022-08-17 14:30] LABS: TOTAL 25(OH) VITAMIN D 25.8 NG/ML (20.0-100.0); VITAMIN B12 LEVEL 596 PG/ML (211-911)
[2022-08-17 14:31] LABS: ALBUMIN 3.4 G/DL (3.2-5.2); ALKALINE PHOSPHATASE 96 U/L (46-116); ALT/SGPT 14 U/L (7.0-40); AST/SGOT 20 U/L (<34); BILIRUBIN,TOTAL 0.4 MG/DL (0.3-1.2); BLOOD UREA NITROGEN 14 MG/DL (9-23); CALCIUM LEVEL 9.3 MG/DL (8.3-10.6); CARBON DIOXIDE LEVEL 32 MMOL/L (20-31); CHLORIDE LEVEL 98 MMOL/L (98-107); CHOLESTEROL LEVEL 144 MG/DL (<200); CHOLESTEROL RISK RATIO 5.43 (<5); CREATININE FOR GFR 0.56 MG/DL (0.70-1.30); FOLATE > 24.00 NG/ML (>5.4); GLOMERULAR FILTRATION RATE > 60.0 (>42); GLUCOSE, FASTING 107 MG/DL (74-106); HDL CHOLESTEROL 26.5 MG/DL (>40); LDL CHOLESTEROL 103.9 MG/DL (<100); NON-HDL-C 118 MG/DL; SODIUM LEVEL 133 MMOL/L (136-145); TOTAL PROTEIN 8.1 G/DL (5.7-8.2); TRIGLYCERIDES LEVEL 68 MG/DL (<150)
== END ==
LOC: M SFHCADAM 08:43
PROVIDERS: ATTEND Family Medicine
DX: R73.03 Prediabetes (principal); I10 Essential (primary) hypertension; C81.10 Nodular sclerosis Hodgkin lymphoma, unspecified site; E78.49 Other hyperlipidemia; E53.8 Deficiency of other specified B group vitamins; Z78.9 Other specified health status; Z79.899 Other long term (current) drug therapy

== ENCOUNTER 2022-08-28 10:04 | Outpatient (RCR) | payer MEDICARE, OTHER, BC | END 2022-09-15 | LOC: M ST 10:04 | PROVIDERS: ATTEND Family Medicine | DX: R13.10 Dysphagia, unspecified (principal) ==

== ENCOUNTER → 2022-10-05 | Outpatient (CLI) | payer MEDICARE, BC, OTHER ==
[~2022-10-05] MED LIST changes: +BARIUM SULFATE 700 MG TABLET (E-Z-DISK) As Ordered ONE; +E-Z-PAQUE 96% w/w SUSP 176GM BTL As Ordered ONE; +VARIBAR NECTAR 40% w/v 240ML SUSP BTL As Ordered ONE; +VARIBAR PUDDING 40% w/v 230ML TUBE As Ordered ONE
== END ==
LOC: M RAD 10:32
PROVIDERS: ATTEND Family Medicine
DX: R13.10 Dysphagia, unspecified (principal)

== ENCOUNTER 2022-10-12 10:14 | Outpatient (RCR) | payer MEDICARE, BC, OTHER ==
[~2022-10-12 10:14] MED LIST changes: -BARIUM SULFATE 700 MG TABLET (E-Z-DISK) As Ordered ONE; -E-Z-PAQUE 96% w/w SUSP 176GM BTL As Ordered ONE; -LOSA100T45 PO; +LOSA100T46 PO; -VARIBAR NECTAR 40% w/v 240ML SUSP BTL As Ordered ONE; -VARIBAR PUDDING 40% w/v 230ML TUBE As Ordered ONE
== END 2022-10-15 ==
LOC: M ST 10:14
PROVIDERS: ATTEND Family Medicine
DX: R13.10 Dysphagia, unspecified (principal)

== ENCOUNTER 2022-10-29 22:43 | Emergency (ER) | payer MEDICARE, BC, OTHER ==
[~2022-10-29] VITALS: Ht 170.2 cm; Wt 71.8 kg
[2022-10-30 03:59] VITALS: BP 136/81
== END 2022-10-30 04:03 | disposition home or self-care (01) ==
LOC: M ED 22:43
DX: K94.20 Gastrostomy complication, unspecified (principal); K57.30 Diverticulosis of large intestine without perforation or abscess without bleeding; N20.0 Calculus of kidney; R91.8 Other nonspecific abnormal finding of lung field; C18.9 Malignant neoplasm of colon, unspecified; E11.9 Type 2 diabetes mellitus without complications; I10 Essential (primary) hypertension; E78.5 Hyperlipidemia, unspecified; Z85.46 Personal history of malignant neoplasm of prostate; Z79.899 Other long term (current) drug therapy; Z88.8 Allergy status to other drugs, medicaments and biological substances; Z88.1 Allergy status to other antibiotic agents; Z91.030 Bee allergy status

== ENCOUNTER 2022-11-01 07:55 | Emergency (ER) | payer MEDICARE, BC, OTHER ==
[~2022-11-01] VITALS: Ht 170.2 cm; Wt 73.8 kg
[2022-11-01] MEDS ORDERED: PANT40TA29 (08:05)
[2022-11-01 10:28] LABS: CK-MB VALUE MASS < 1.0 NG/ML (<3.6)
[2022-11-01 10:29] LABS: BLOOD UREA NITROGEN 11 MG/DL (9-23); CALCIUM LEVEL 8.6 MG/DL (8.3-10.6); CARBON DIOXIDE LEVEL 32 MMOL/L (20-31); CHLORIDE LEVEL 99 MMOL/L (98-107); CPK CREATINE PHOSPHOKINASE 26 U/L (46-171); CREATININE FOR GFR 0.61 MG/DL (0.70-1.30); GLOMERULAR FILTRATION RATE > 60.0 (>42); GLUCOSE, FASTING 122 MG/DL (74-106); MB/CK RELATIVE INDEX 3.84 (< OR =4); POTASSIUM SERUM 4.3 MMOL/L (3.5-5.1); SODIUM LEVEL 135 MMOL/L (136-145)
[2022-11-01 10:37] LABS: BASO % 0.5 % (0.0-1.0); EOS # 0.2 10^3/uL (0.0-0.5); EOS % 2.6 % (0.0-3.0); HEMATOCRIT 42.1 % (42.0-52.0); HEMOGLOBIN 13.6 g/dl (13.5-17.5); LYMPH # 0.4 10^3/uL (1.5-5.0); LYMPH % 5.3 % (24.0-44.0); MEAN CORPUSCULAR HEMOGLOBIN 30.7 pg (27.0-33.0); MEAN CORPUSCULAR HGB CONC 32.3 g/dl (32.0-36.5); MONO # 1.1 10^3/uL (0.0-0.8); NEUTROPHILS # 5.6 10^3/uL (1.5-8.5); NEUTROPHILS % 76.1 % (36.0-66.0); PLATELET COUNT, AUTOMATED 332 10^3/uL (150-450); RED BLOOD COUNT 4.43 10^6/uL (4.30-6.10); WHITE BLOOD COUNT 7.3 10^3/uL (4.0-10.0)
[2022-11-01 10:49] LABS: RSV AMPLIFICATION NEGATIVE (NEGATIVE)
[2022-11-01 10:50] LABS: INR 0.93; PARTIAL THROMBOPLASTIN TIME 26.3 SECONDS (24.8-34.2); PROTHROMBIN TIME 12.7 SECONDS (12.5-14.5)
[2022-11-01] MEDS ORDERED: NS 500 ML IV ONE (11:55)
[2022-11-01 13:25] VITALS: BP 135/77
== END 2022-11-01 13:26 | disposition home or self-care (01) ==
LOC: M ED 07:55
DX: H53.8 Other visual disturbances (principal); R53.1 Weakness; E11.9 Type 2 diabetes mellitus without complications; I10 Essential (primary) hypertension; E78.5 Hyperlipidemia, unspecified; C61 Malignant neoplasm of prostate; C73 Malignant neoplasm of thyroid gland; C18.9 Malignant neoplasm of colon, unspecified; Z87.891 Personal history of nicotine dependence; Z93.1 Gastrostomy status; Z88.6 Allergy status to analgesic agent; Z91.030 Bee allergy status; Z79.891 Long term (current) use of opiate analgesic; Z79.899 Other long term (current) drug therapy

== ENCOUNTER 2022-11-06 09:38 | Outpatient (RCR) | payer MEDICARE, BC, OTHER ==
[~2022-11-06 09:38] MED LIST changes: +PANT40TA29
[2022-11-06] MEDS ORDERED: FAMO40SU2 (10:51)
== END 2022-11-15 ==
LOC: M ST 09:38
PROVIDERS: ATTEND Family Medicine
DX: R13.10 Dysphagia, unspecified (principal)

== ENCOUNTER 2022-11-06 10:43 | Emergency (ER) | payer MEDICARE, BC, OTHER ==
[~2022-11-06] VITALS: Ht 170.2 cm; Wt 72.9 kg
[2022-11-06] MEDS ORDERED: FAMO40SU2 (10:51)
[2022-11-06] MEDS ORDERED: NS 1,000 ML IV ONE ×2 (11:40→12:55)
[2022-11-06 11:58] LABS: BASO % 0.7 % (0.0-1.0); EOS # 0.3 10^3/uL (0.0-0.5); EOS % 5.1 % (0.0-3.0); HEMATOCRIT 41.4 % (42.0-52.0); HEMOGLOBIN 13.3 g/dl (13.5-17.5); LYMPH # 0.5 10^3/uL (1.5-5.0); LYMPH % 8.6 % (24.0-44.0); MEAN CORPUSCULAR HEMOGLOBIN 30.6 pg (27.0-33.0); MEAN CORPUSCULAR HGB CONC 32.1 g/dl (32.0-36.5); MEAN CORPUSCULAR VOLUME 95.2 fl (80.0-96.0); MONO # 1.1 10^3/uL (0.0-0.8); MONO % 19.5 % (2.0-8.0); NEUTROPHILS # 3.8 10^3/uL (1.5-8.5); NEUTROPHILS % 65.6 % (36.0-66.0); PLATELET COUNT, AUTOMATED 303 10^3/uL (150-450); RED BLOOD COUNT 4.35 10^6/uL (4.30-6.10); WHITE BLOOD COUNT 5.8 10^3/uL (4.0-10.0)
[2022-11-06 12:23] LABS: ALKALINE PHOSPHATASE 81 U/L (46-116); ALT/SGPT 11 U/L (7.0-40); AST/SGOT 19 U/L (<34); BILIRUBIN,DIRECT 0.1 MG/DL (<0.4); BILIRUBIN,TOTAL 0.3 MG/DL (0.3-1.2); BLOOD UREA NITROGEN 10 MG/DL (9-23); CALCIUM LEVEL 9.2 MG/DL (8.3-10.6); CARBON DIOXIDE LEVEL 33 MMOL/L (20-31); CHLORIDE LEVEL 99 MMOL/L (98-107); CREATININE FOR GFR 0.51 MG/DL (0.70-1.30); GLOMERULAR FILTRATION RATE > 60.0 (>42); GLUCOSE, FASTING 108 MG/DL (74-106); POTASSIUM SERUM 4.7 MMOL/L (3.5-5.1); SODIUM LEVEL 136 MMOL/L (136-145); TOTAL PROTEIN 7.1 G/DL (5.7-8.2)
[2022-11-06 15:15] VITALS: BP 142/78
== END 2022-11-06 15:35 | disposition home or self-care (01) ==
LOC: M ED 10:43
DX: E86.0 Dehydration (principal); I10 Essential (primary) hypertension; E78.5 Hyperlipidemia, unspecified; N40.0 Benign prostatic hyperplasia without lower urinary tract symptoms; Z85.038 Personal history of other malignant neoplasm of large intestine; Z85.46 Personal history of malignant neoplasm of prostate; Z85.850 Personal history of malignant neoplasm of thyroid; Z93.1 Gastrostomy status; Z79.899 Other long term (current) drug therapy; Z88.8 Allergy status to other drugs, medicaments and biological substances; Z91.030 Bee allergy status

== ENCOUNTER → 2022-11-07 | Outpatient (REF) | payer MEDICARE, OTHER ==
[~2022-11-07] MED LIST changes: +FAMO40SU2
== END ==
LOC: M LAB REF 16:42
PROVIDERS: ATTEND Nurse Practitioner Family
DX: R10.817 Generalized abdominal tenderness (principal); R19.7 Diarrhea, unspecified

== ENCOUNTER 2022-11-24 09:43 | Outpatient (RCR) | payer MEDICARE, BC, OTHER ==
[~2022-11-24 09:43] MED LIST changes: -DOXY100C81 PO; +DOXY100C82 PO
== END 2022-12-15 ==
LOC: M ST 09:43
PROVIDERS: ATTEND Family Medicine
DX: R13.10 Dysphagia, unspecified (principal)

== ENCOUNTER 2022-11-28 05:41 | Emergency (ER) | payer MEDICARE, BC, OTHER ==
[~2022-11-28] VITALS: Ht 167.6 cm; Wt 72.0 kg
[~2022-11-28 05:41] MED LIST changes: +DOXY100C81 PO; -DOXY100C82 PO
[2022-11-28] MEDS ORDERED: GASTROGRAFIN SOLUTION 30ML PO ONE (09:40)
[2022-11-28 12:21] VITALS: BP 127/78; TEMP 97.4; O2SAT 96
== END 2022-11-28 12:27 | disposition home or self-care (01) ==
LOC: M ED 05:41
DX: K94.23 Gastrostomy malfunction (principal); I10 Essential (primary) hypertension; E78.5 Hyperlipidemia, unspecified; Z88.6 Allergy status to analgesic agent; C61 Malignant neoplasm of prostate; Z91.030 Bee allergy status; Z79.810 Long term (current) use of selective estrogen receptor modulators (SERMs); Z79.899 Other long term (current) drug therapy
CPT/HCPCS: 74018; 99283; Q9963

== ENCOUNTER 2022-11-30 09:06 | Emergency (ER) | payer MEDICARE, BC, OTHER ==
[~2022-11-30] VITALS: Ht 170.2 cm; Wt 72.7 kg
[~2022-11-30 09:06] MED LIST changes: -DOXY100C81 PO; +DOXY100C82 PO
[2022-11-30 12:32] VITALS: BP 127/63; TEMP 97; O2SAT 96
== END 2022-11-30 12:33 | disposition home or self-care (01) ==
LOC: M ED 09:06
DX: K94.20 Gastrostomy complication, unspecified (principal); E11.9 Type 2 diabetes mellitus without complications; I10 Essential (primary) hypertension; E78.5 Hyperlipidemia, unspecified; K21.9 Gastro-esophageal reflux disease without esophagitis; Z90.49 Acquired absence of other specified parts of digestive tract; Z79.899 Other long term (current) drug therapy; Z88.8 Allergy status to other drugs, medicaments and biological substances; Z91.030 Bee allergy status

== ENCOUNTER 2022-12-05 00:50 | Emergency (ER) | payer MEDICARE, BC, OTHER ==
[~2022-12-05] VITALS: Ht 170.2 cm; Wt 74.3 kg
[2022-12-05 05:06] LABS: BASO % 0.6 % (0.0-1.0); EOS # 0.3 10^3/uL (0.0-0.5); EOS % 4.3 % (0.0-3.0); HEMATOCRIT 41.3 % (42.0-52.0); HEMOGLOBIN 13.3 g/dl (13.5-17.5); LYMPH # 0.5 10^3/uL (1.5-5.0); LYMPH % 7.3 % (24.0-44.0); MEAN CORPUSCULAR HEMOGLOBIN 30.4 pg (27.0-33.0); MEAN CORPUSCULAR HGB CONC 32.2 g/dl (32.0-36.5); MEAN CORPUSCULAR VOLUME 94.5 fl (80.0-96.0); MONO # 1.4 10^3/uL (0.0-0.8); MONO % 19.4 % (2.0-8.0); NEUTROPHILS # 4.8 10^3/uL (1.5-8.5); NEUTROPHILS % 67.8 % (36.0-66.0); PLATELET COUNT, AUTOMATED 209 10^3/uL (150-450); RED BLOOD COUNT 4.37 10^6/uL (4.30-6.10)
[2022-12-05 05:32] LABS: BLOOD UREA NITROGEN 9 MG/DL (9-23); CALCIUM LEVEL 8.3 MG/DL (8.3-10.6); CARBON DIOXIDE LEVEL 31 MMOL/L (20-31); CHLORIDE LEVEL 100 MMOL/L (98-107); CREATININE FOR GFR 0.53 MG/DL (0.70-1.30); GLOMERULAR FILTRATION RATE > 60.0 (>42); GLUCOSE, FASTING 128 MG/DL (74-106); POTASSIUM SERUM 5.2 MMOL/L (3.5-5.1); SODIUM LEVEL 135 MMOL/L (136-145)
[2022-12-05] MEDS ORDERED: ISOVUE-370 76% 100ML VIAL As Ordered ONE ×2 (05:36→06:44)
[2022-12-05] MEDS ORDERED: SODIUM CHLORIDE 0.9% INJ 10 ML SYR IV SCH (09:00)
[2022-12-05 09:49] VITALS: BP 163/93; TEMP 97.2; O2SAT 98
== END 2022-12-05 10:00 | disposition home or self-care (01) ==
LOC: M ED 00:50
DX: K94.29 Other complications of gastrostomy (principal); Z90.49 Acquired absence of other specified parts of digestive tract; J84.9 Interstitial pulmonary disease, unspecified; I51.7 Cardiomegaly; Z45.2 Encounter for adjustment and management of vascular access device; Z79.899 Other long term (current) drug therapy; Z88.8 Allergy status to other drugs, medicaments and biological substances; Z91.030 Bee allergy status
CPT/HCPCS: 71045; 74177; 80048; 83605; 85025; 96374; 99284; Q9967

== ENCOUNTER 2023-01-09 10:17 | Outpatient (RCR) | payer MEDICARE, BC, OTHER | END 2023-01-15 | LOC: M ST 10:17 | PROVIDERS: ATTEND Family Medicine | DX: R13.10 Dysphagia, unspecified (principal) ==

== ENCOUNTER 2023-02-07 10:25 | Outpatient (RCR) | payer MEDICARE, BC, OTHER | END 2023-02-15 | LOC: M PT 10:25 | PROVIDERS: ATTEND Family Medicine | DX: I89.0 Lymphedema, not elsewhere classified (principal) ==

== ENCOUNTER 2023-03-22 08:55 | Outpatient (RCR) | payer MEDICARE, BC, OTHER ==
[~2023-03-22 08:55] MED LIST changes: -CEFD300C41 PO; +CEFD300C42 PO; -FAMO40SU2; +FAMO40SU9
== END 2023-04-17 ==
LOC: M PT 08:55
PROVIDERS: ATTEND Family Medicine
DX: R13.12 Dysphagia, oropharyngeal phase (principal); I89.0 Lymphedema, not elsewhere classified

== ENCOUNTER 2023-06-08 14:25 | Outpatient (RCR) | payer MEDICARE, BC, OTHER ==
[~2023-06-08 14:25] MED LIST changes: +CEFD1CAP9 PO; -CEFD300C42 PO
== END 2023-06-17 ==
LOC: M PT 14:25
PROVIDERS: ATTEND Family Medicine
DX: R13.12 Dysphagia, oropharyngeal phase (principal); I89.0 Lymphedema, not elsewhere classified

== ENCOUNTER 2023-07-06 09:12 | Outpatient (RCR) | payer MEDICARE, BC, OTHER | END 2023-07-18 | LOC: M PT 09:12 | PROVIDERS: ATTEND Family Medicine | DX: R13.12 Dysphagia, oropharyngeal phase (principal); I89.0 Lymphedema, not elsewhere classified ==

== ENCOUNTER → 2023-08-10 | Outpatient (REF) | payer MEDICARE, OTHER, BC ==
[2023-08-10 13:51] LABS: BASO % 0.4 % (0.0-1.0); EOS # 0.4 10^3/uL (0.0-0.5); EOS % 5.8 % (0.0-3.0); HEMATOCRIT 45.4 % (42.0-52.0); HEMOGLOBIN 14.5 g/dl (13.5-17.5); LYMPH # 0.7 10^3/uL (1.5-5.0); LYMPH % 9.4 % (24.0-44.0); MEAN CORPUSCULAR HEMOGLOBIN 30.3 pg (27.0-33.0); MEAN CORPUSCULAR HGB CONC 31.9 g/dl (32.0-36.5); MONO % 13.7 % (2.0-8.0); NEUTROPHILS # 5.2 10^3/uL (1.5-8.5); NEUTROPHILS % 70.2 % (36.0-66.0); PLATELET COUNT, AUTOMATED 262 10^3/uL (150-450); RED BLOOD COUNT 4.78 10^6/uL (4.30-6.10); WHITE BLOOD COUNT 7.4 10^3/uL (4.0-10.0)
[2023-08-10 13:54] LABS: ALBUMIN 3.6 G/DL (3.2-5.2); ALKALINE PHOSPHATASE 117 U/L (46-116); ALT/SGPT 10 U/L (7.0-40); AST/SGOT 21 U/L (<34); BILIRUBIN,TOTAL 0.6 MG/DL (0.3-1.2); BLOOD UREA NITROGEN 13 MG/DL (9-23); CALCIUM LEVEL 9.7 MG/DL (8.3-10.6); CARBON DIOXIDE LEVEL 32 MMOL/L (20-31); CHLORIDE LEVEL 98 MMOL/L (98-107); CREATININE FOR GFR 0.72 MG/DL (0.70-1.30); GLOMERULAR FILTRATION RATE > 60.0 (>42); GLUCOSE, FASTING 108 MG/DL (74-106); POTASSIUM SERUM 5.1 MMOL/L (3.5-5.1); SODIUM LEVEL 134 MMOL/L (136-145); TOTAL PROTEIN 8.1 G/DL (5.7-8.2)
== END ==
LOC: M SFHCADAM 09:34
PROVIDERS: ATTEND Family Medicine
DX: J20.8 Acute bronchitis due to other specified organisms (principal)

== ENCOUNTER → 2023-08-10 | Outpatient (CLI) | payer MEDICARE, OTHER, BC | LOC: M ADAMS 09:40 | PROVIDERS: ATTEND Family Medicine | DX: I51.7 Cardiomegaly (principal); J84.9 Interstitial pulmonary disease, unspecified; R91.8 Other nonspecific abnormal finding of lung field ==

== ENCOUNTER → 2023-08-23 | Outpatient (REF) | payer MEDICARE, BC, OTHER | LOC: M LAB REF 12:58 | PROVIDERS: ATTEND Internal Medicine Pulmonary Disease | DX: J47.9 Bronchiectasis, uncomplicated (principal); B37.9 Candidiasis, unspecified ==

== ENCOUNTER → 2023-08-24 | Outpatient (REF) | payer MEDICARE, BC, OTHER ==
[2023-08-24 18:13] LABS: CLOSTRIDIUM DIFFICILE PCR NEGATIVE (NEGATIVE)
== END ==
LOC: M LAB REF 16:46
PROVIDERS: ATTEND Internal Medicine Pulmonary Disease
DX: R19.7 Diarrhea, unspecified (principal); J47.9 Bronchiectasis, uncomplicated

== ENCOUNTER → 2023-09-12 | Outpatient (CLI) | payer MEDICARE, BC, OTHER | LOC: M RAD 09:39 | PROVIDERS: ATTEND Internal Medicine Pulmonary Disease | DX: R91.8 Other nonspecific abnormal finding of lung field (principal) ==

== ENCOUNTER 2023-09-13 09:07 | Outpatient (RCR) | payer MEDICARE, BC, OTHER | END 2023-09-16 | LOC: M PT 09:07 | PROVIDERS: ATTEND Family Medicine | DX: R13.12 Dysphagia, oropharyngeal phase (principal); I89.0 Lymphedema, not elsewhere classified ==

== ENCOUNTER 2023-10-04 08:23 | Outpatient (RCR) | payer MEDICARE, BC, OTHER | END 2023-10-16 | LOC: M PT 08:23 | PROVIDERS: ATTEND Family Medicine | DX: I89.0 Lymphedema, not elsewhere classified (principal) ==

== ENCOUNTER 2023-10-30 09:55 | Outpatient (RCR) | payer MEDICARE, BC, OTHER ==
[~2023-10-30 09:55] MED LIST changes: +DOXY-323 PO; -DOXY-443 PO
[2023-11-05] MEDS ORDERED: PRED10TA2 PO (07:43)
[2023-11-05] MEDS ORDERED: LOSA25TA13 PO (07:43)
[2023-11-05] MEDS ORDERED: ALBU2.5V10 INH (09:37)
== END 2023-11-16 ==
LOC: M PT 09:55
PROVIDERS: ATTEND Family Medicine
DX: R13.12 Dysphagia, oropharyngeal phase (principal); I89.0 Lymphedema, not elsewhere classified

== ENCOUNTER 2023-11-05 06:44 | Emergency (ER) | payer MEDICARE, BC ==
[~2023-11-05] VITALS: Ht 170.2 cm; Wt 77.2 kg
[2023-11-05 06:53] VITALS: TEMP 98.6
[2023-11-05] MEDS ORDERED: LOSA25TA13 PO (07:43)
[2023-11-05] MEDS ORDERED: PRED10TA2 PO (07:43)
[2023-11-05 07:45] LABS: BASO % 0.3 % (0.0-1.0); EOS # 0.4 10^3/uL (0.0-0.5); EOS % 3.9 % (0.0-3.0); HEMATOCRIT 45.9 % (42.0-52.0); HEMOGLOBIN 15.1 g/dl (13.5-17.5); LYMPH # 0.7 10^3/uL (1.5-5.0); LYMPH % 7.5 % (24.0-44.0); MEAN CORPUSCULAR HEMOGLOBIN 30.3 pg (27.0-33.0); MEAN CORPUSCULAR HGB CONC 32.9 g/dl (32.0-36.5); MEAN CORPUSCULAR VOLUME 92.2 fl (80.0-96.0); MONO # 1.1 10^3/uL (0.0-0.8); NEUTROPHILS # 6.7 10^3/uL (1.5-8.5); PLATELET COUNT, AUTOMATED 207 10^3/uL (150-450); RED BLOOD COUNT 4.98 10^6/uL (4.30-6.10)
[2023-11-05 07:51] VITALS: BP 187/105
[2023-11-05] MEDS: LOSARTAN 25 MG TAB PO ONE (07:51)
[2023-11-05 08:07] LABS: INR 0.94; PARTIAL THROMBOPLASTIN TIME 27.8 SECONDS (24.8-34.2); PROTHROMBIN TIME 12.3 SECONDS (12.5-14.5)
[2023-11-05 08:08] LABS: LIPASE 28 U/L (12-53)
[2023-11-05 08:10] LABS: ALBUMIN 3.3 G/DL (3.2-5.2); ALKALINE PHOSPHATASE 93 U/L (46-116); ALT/SGPT 12 U/L (7.0-40); AST/SGOT 14 U/L (<34); BILIRUBIN,DIRECT 0.2 MG/DL (<0.4); BILIRUBIN,TOTAL 0.9 MG/DL (0.3-1.2); BLOOD UREA NITROGEN 13 MG/DL (9-23); CALCIUM LEVEL 8.9 MG/DL (8.3-10.6); CARBON DIOXIDE LEVEL 31 MMOL/L (20-31); CHLORIDE LEVEL 100 MMOL/L (98-107); CK-MB VALUE MASS < 1.0 NG/ML (<3.6); CPK CREATINE PHOSPHOKINASE 42 U/L (46-171); CREATININE FOR GFR 0.75 MG/DL (0.70-1.30); GLOMERULAR FILTRATION RATE > 60.0 (>42); GLUCOSE, FASTING 109 MG/DL (74-106); MB/CK RELATIVE INDEX 2.38 (< OR =4); SODIUM LEVEL 134 MMOL/L (136-145); TOTAL PROTEIN 7.2 G/DL (5.7-8.2)
[2023-11-05 08:12] LABS: FREE T4 1.11 NG/DL (0.89-1.76)
[2023-11-05 08:13] LABS: THYROID STIMULATING HORMONE 4.073 uIU/ML (0.55-4.78)
[2023-11-05 09:26] LABS: CK-MB VALUE MASS < 1.0 NG/ML (<3.6)
[2023-11-05 09:28] LABS: CPK CREATINE PHOSPHOKINASE 33 U/L (46-171); MB/CK RELATIVE INDEX 3.03 (< OR =4)
[2023-11-05] MEDS ORDERED: ALBU2.5V10 INH (09:37)
[2023-11-05] MEDS ORDERED: HOME MED LIST COMPLETE! XX SCH (09:40)
[2023-11-05] MEDS ORDERED: ISOVUE-370 76% 100ML VIAL As Ordered ONE (10:16)
[2023-11-05 11:30] VITALS: BP 174/91; O2SAT 97
== END 2023-11-05 11:55 | disposition home or self-care (01) ==
LOC: M ED 06:44
DX: C34.90 Malignant neoplasm of unspecified part of unspecified bronchus or lung (principal); R07.9 Chest pain, unspecified; R59.9 Enlarged lymph nodes, unspecified; E07.9 Disorder of thyroid, unspecified; R91.8 Other nonspecific abnormal finding of lung field; Z85.850 Personal history of malignant neoplasm of thyroid; E11.9 Type 2 diabetes mellitus without complications; I10 Essential (primary) hypertension; E78.5 Hyperlipidemia, unspecified; K21.9 Gastro-esophageal reflux disease without esophagitis; Z87.891 Personal history of nicotine dependence; Z88.1 Allergy status to other antibiotic agents; Z88.8 Allergy status to other drugs, medicaments and biological substances; Z91.030 Bee allergy status
CPT/HCPCS: 71045; 71275; 80047; 80048; 80076; 82550; 82553; 83690; 83880; 84439; 84443; 84484; 85025; 85610; 85730; 93005; 93041; 94760; 99285; G0463; Q9967

== ENCOUNTER 2023-12-11 15:45 | Outpatient (RCR) | payer MEDICARE, BC, OTHER ==
[~2023-12-11 15:45] MED LIST changes: +LOSA25TA13 PO
== END 2023-12-16 ==
LOC: M PT 15:45
PROVIDERS: ATTEND Family Medicine
DX: I89.0 Lymphedema, not elsewhere classified (principal)

== ENCOUNTER 2024-02-18 04:51 | Observation (INO) | payer MEDICARE, BC, OTHER ==
[2024-02-18] MEDS ORDERED: ISOVUE-370 76% 100ML VIAL As Ordered ONE (06:11)
[2024-02-18 06:37] LABS: BASO % 0.2 % (0.0-1.0); EOS # 0.1 10^3/uL (0.0-0.5); EOS % 1.2 % (0.0-3.0); HEMATOCRIT 43.2 % (42.0-52.0); LYMPH # 0.4 10^3/uL (1.5-5.0); LYMPH % 6.6 % (24.0-44.0); MEAN CORPUSCULAR HEMOGLOBIN 30.2 pg (27.0-33.0); MEAN CORPUSCULAR HGB CONC 32.4 g/dl (32.0-36.5); MEAN CORPUSCULAR VOLUME 93.1 fl (80.0-96.0); MONO # 1.1 10^3/uL (0.0-0.8); MONO % 17.2 % (2.0-8.0); NEUTROPHILS # 4.9 10^3/uL (1.5-8.5); NEUTROPHILS % 74.5 % (36.0-66.0); PLATELET COUNT, AUTOMATED 202 10^3/uL (150-450); RED BLOOD COUNT 4.64 10^6/uL (4.30-6.10); WHITE BLOOD COUNT 6.6 10^3/uL (4.0-10.0)
[2024-02-18 07:14] LABS: ALBUMIN 3.7 G/DL (3.2-5.2); ALKALINE PHOSPHATASE 106 U/L (46-116); ALT/SGPT 29 U/L (7.0-40); AST/SGOT 37 U/L (<34); BILIRUBIN,TOTAL 0.7 MG/DL (0.3-1.2); BLOOD UREA NITROGEN 15 MG/DL (9-23); CALCIUM LEVEL 9.5 MG/DL (8.3-10.6); CARBON DIOXIDE LEVEL 30 MMOL/L (20-31); CHLORIDE LEVEL 100 MMOL/L (98-107); CREATININE FOR GFR 0.75 MG/DL (0.70-1.30); GLOMERULAR FILTRATION RATE > 60.0 (>42); GLUCOSE, FASTING 103 MG/DL (74-106); POTASSIUM SERUM 4.6 MMOL/L (3.5-5.1); SODIUM LEVEL 135 MMOL/L (136-145); TOTAL PROTEIN 8.1 G/DL (5.7-8.2)
[2024-02-18] MEDS: NS 500 ML IV ONE (07:25)
[2024-02-18] MEDS ORDERED: SODIUM CHLORIDE 0.9% INJ 10 ML SYR IV PRN (08:40)
[2024-02-18] MEDS: SODIUM CHLORIDE 0.9% INJ 10 ML SYR IV SCH (09:10)
[2024-02-18] MEDS ORDERED: TOPR50TA PO (09:40)
[2024-02-18] MEDS ORDERED: METO1TAB7 PO (09:40)
[2024-02-18] MEDS ORDERED: ATOR40TA75 PO (09:40)
[2024-02-18] MEDS ORDERED: PROC10TA5 PO (09:45)
[2024-02-18] MEDS ORDERED: NITR0.4S14 SL (09:45)
[2024-02-18] MEDS ORDERED: ELIQ5TAB PO (09:45)
[2024-02-18] MEDS ORDERED: ONDA-84 PO (09:45)
[2024-02-18] MEDS ORDERED: SUCR1ORA PO (09:45)
[2024-02-18] MEDS ORDERED: CLOP75TA2 PO (09:45)
[2024-02-18] MEDS ORDERED: FARX1TAB3 PO (09:45)
[2024-02-18] MEDS ORDERED: AMIO200T49 PO (09:45)
[2024-02-18] MEDS ORDERED: HOME MED LIST COMPLETE! XX SCH (09:50)
[2024-02-18] MEDS ORDERED: PROHANCE 279.3MG/ML 15ML VIAL As Ordered ONE (13:47)
[2024-02-18] MEDS ORDERED: ALBUTEROL SULFATE 2.5MG/0.5ML INH NEB SOLN INH PRN (16:20)
[2024-02-18] MEDS ORDERED: SUCRALFATE SUSP 1GM/10ML UD PO PRN (16:20)
[2024-02-18] MEDS ORDERED: GLUCOSE 4 GM CHEW PO PRN (16:55)
[2024-02-18] MEDS ORDERED: DEXTROSE 50% 50ML SYRINGE IV PRN (16:55)
[2024-02-18] MEDS ORDERED: GLUCAGON INJ 1MG VIAL SC PRN (16:55)
[2024-02-18 17:00] LABS: HEMOGLOBIN A1c 5.4 % (4.0-6.0)
[2024-02-18 17:20] LABS: CHOLESTEROL LEVEL 121 MG/DL (<200); CHOLESTEROL RISK RATIO 3.27 (<5); LDL CHOLESTEROL 71.4 MG/DL (<100); TRIGLYCERIDES LEVEL 63 MG/DL (<150)
[2024-02-18] MEDS: INSULIN LISPRO (NovoLOG) PER UNIT SC SCH ×2 (18:02→21:00)
[2024-02-18 18:53] VITALS: BP 158/95; TEMP 98.6; O2SAT 94
[2024-02-18] MEDS ORDERED: ALBUTEROL 90 MCG/ACT 8GM HFA INHALER INH PRN (19:25)
[2024-02-18 20:24] VITALS: BP 115/77; TEMP 98.2; O2SAT 96
[2024-02-18] MEDS: APIXABAN 5 MG TAB (ELIQUIS) PO SCH (21:00)
[2024-02-18] MEDS: ATORVASTATIN 20 MG TAB PO SCH (21:00)
[2024-02-18] MEDS: REMDESIVIR 200 MG in NS 250 ML IV ONE (21:01)
[2024-02-18 23:32] VITALS: BP 102/72; TEMP 98.4; O2SAT 96
[2024-02-19] MEDS ORDERED: METOPROLOL TART 25 MG TABLET PO ONE (04:00)
[2024-02-19 04:06] VITALS: BP 115/73; TEMP 98.4; O2SAT 96
[2024-02-19 06:06] VITALS: BP 119/71; TEMP 98.1; O2SAT 97
[2024-02-19 07:44] VITALS: BP 134/86; TEMP 97.9
[2024-02-19] MEDS: PANTOPRAZOLE 40MG TAB (PROTONIX) PO SCH (09:26)
[2024-02-19] MEDS: NS 1,000 ML IV ONE (09:27)
[2024-02-19 12:00] VITALS: BP 126/79; TEMP 97; O2SAT 98
[2024-02-19] MEDS: CLOPIDOGREL 75 MG TAB PO ONE (13:17)
[2024-02-19 16:40] VITALS: BP 131/79; TEMP 99.1; O2SAT 99
[2024-02-19 19:33] VITALS: BP 127/85; TEMP 98.2; O2SAT 98
[2024-02-19] MEDS: REMDESIVIR 100 MG in NS 250 ML IV SCH (20:57)
[2024-02-20 04:06] VITALS: BP 116/76; TEMP 98.8; O2SAT 95
[2024-02-20 08:30] VITALS: BP 123/73; TEMP 97.3; O2SAT 96
[2024-02-20] MEDS ORDERED: NIRM1TAB13 PO (09:35)
[2024-02-20] MEDS: CLOPIDOGREL 75 MG TAB PO SCH (09:44)
[2024-02-20 10:23] LABS: BASO % 0.2 % (0.0-1.0); EOS # 0.3 10^3/uL (0.0-0.5); EOS % 6.3 % (0.0-3.0); HEMATOCRIT 43.4 % (42.0-52.0); HEMOGLOBIN 13.8 g/dl (13.5-17.5); LYMPH # 0.3 10^3/uL (1.5-5.0); LYMPH % 7.8 % (24.0-44.0); MEAN CORPUSCULAR HEMOGLOBIN 29.7 pg (27.0-33.0); MEAN CORPUSCULAR HGB CONC 31.8 g/dl (32.0-36.5); MEAN CORPUSCULAR VOLUME 93.3 fl (80.0-96.0); MONO # 0.8 10^3/uL (0.0-0.8); MONO % 18.8 % (2.0-8.0); NEUTROPHILS # 2.7 10^3/uL (1.5-8.5); NEUTROPHILS % 66.4 % (36.0-66.0); PLATELET COUNT, AUTOMATED 201 10^3/uL (150-450); RED BLOOD COUNT 4.65 10^6/uL (4.30-6.10); WHITE BLOOD COUNT 4.1 10^3/uL (4.0-10.0)
[2024-02-20] MEDS: AMIODARONE 200 MG TAB (PACERONE) PO SCH (10:41)
[2024-02-20 10:55] LABS: BLOOD UREA NITROGEN 13 MG/DL (9-23); CALCIUM LEVEL 8.2 MG/DL (8.3-10.6); CARBON DIOXIDE LEVEL 28 MMOL/L (20-31); CHLORIDE LEVEL 103 MMOL/L (98-107); CREATININE FOR GFR 0.69 MG/DL (0.70-1.30); GLOMERULAR FILTRATION RATE > 60.0 (>42); GLUCOSE, FASTING 149 MG/DL (74-106); POTASSIUM SERUM 3.7 MMOL/L (3.5-5.1); SODIUM LEVEL 135 MMOL/L (136-145)
== END 2024-02-20 11:34 | disposition home or self-care (01) ==
LOC: EDBD 04:51 → M ED 04:51 → M ED INP 04:52 → UNDOADMOB 16:07 → M PCU 18:44
PROVIDERS: ADMIT Student in an Organized Health Care Education/Training Program; ATTEND Student in an Organized Health Care Education/Training Program
DX: I63.532 Cerebral infarction due to unspecified occlusion or stenosis of left posterior cerebral artery (principal); U07.1 COVID-19; I25.2 Old myocardial infarction; I48.91 Unspecified atrial fibrillation; Z79.01 Long term (current) use of anticoagulants; J44.9 Chronic obstructive pulmonary disease, unspecified; Z85.038 Personal history of other malignant neoplasm of large intestine; J96.11 Chronic respiratory failure with hypoxia; Z99.81 Dependence on supplemental oxygen; K21.9 Gastro-esophageal reflux disease without esophagitis; Z85.47 Personal history of malignant neoplasm of testis; Z79.899 Other long term (current) drug therapy; Z91.030 Bee allergy status; Z88.8 Allergy status to other drugs, medicaments and biological substances
CPT/HCPCS: 36415; 70450; 70491; 70553; 71045; 80048; 80053; 80061; 83036; 83735; 85025; 87486; 87581; 87633; 87798; 93005; 93306; 93880; 96365; 96366; 96375; 96376; 97161; 97165; 97530; 99285; A9576; G0378; J0248; J1642; J1815; Q9967

== ENCOUNTER 2024-02-29 00:38 | Emergency (ER) | payer MEDICARE, BC, OTHER ==
[~2024-02-29] VITALS: Ht 170.2 cm; Wt 72.7 kg
[~2024-02-29 00:38] MED LIST changes: +AMIO200T49 PO; +ATOR40TA75 PO; +CLOP75TA2 PO; +ELIQ5TAB PO; +FARX1TAB3 PO; +METO1TAB7 PO; +NIRM1TAB13 PO; +NITR0.4S14 SL; +ONDA-84 PO; +PROC10TA5 PO; +SUCR1ORA PO; +TOPR50TA PO
[2024-02-29 01:10] LABS: BASO % 0.5 % (0.0-1.0); EOS # 0.3 10^3/uL (0.0-0.5); EOS % 4.2 % (0.0-3.0); HEMATOCRIT 44.5 % (42.0-52.0); HEMOGLOBIN 14.1 g/dl (13.5-17.5); LYMPH # 0.7 10^3/uL (1.5-5.0); LYMPH % 11.6 % (24.0-44.0); MEAN CORPUSCULAR HEMOGLOBIN 29.4 pg (27.0-33.0); MEAN CORPUSCULAR HGB CONC 31.7 g/dl (32.0-36.5); MEAN CORPUSCULAR VOLUME 92.7 fl (80.0-96.0); MONO % 16.6 % (2.0-8.0); NEUTROPHILS % 66.3 % (36.0-66.0); PLATELET COUNT, AUTOMATED 231 10^3/uL (150-450)
[2024-02-29] MEDS: LIDOCAINE VISCOUS 2% SOLN 15ML UDC PO ONE (01:11)
[2024-02-29] MEDS: MAALOX 30 ML SUSP *UDC PO ONE (01:12)
[2024-02-29 01:34] LABS: CK-MB VALUE MASS < 1.0 NG/ML (<3.6)
[2024-02-29 01:35] LABS: CPK CREATINE PHOSPHOKINASE 41 U/L (46-171); MB/CK RELATIVE INDEX 2.43 (< OR =4)
[2024-02-29 01:38] LABS: BLOOD UREA NITROGEN 15 MG/DL (9-23); CALCIUM LEVEL 9.9 MG/DL (8.3-10.6); CARBON DIOXIDE LEVEL 32 MMOL/L (20-31); CHLORIDE LEVEL 104 MMOL/L (98-107); CREATININE FOR GFR 0.86 MG/DL (0.70-1.30); GLOMERULAR FILTRATION RATE > 60.0 (>42); GLUCOSE, FASTING 144 MG/DL (74-106); POTASSIUM SERUM 4.3 MMOL/L (3.5-5.1); SODIUM LEVEL 138 MMOL/L (136-145)
[2024-02-29 03:17] LABS: CK-MB VALUE MASS < 1.0 NG/ML (<3.6)
[2024-02-29 03:18] LABS: CPK CREATINE PHOSPHOKINASE 29 U/L (46-171); MB/CK RELATIVE INDEX 3.44 (< OR =4)
[2024-02-29 03:45] VITALS: BP 142/83
[2024-02-29 03:53] VITALS: TEMP 96.4; O2SAT 97
== END 2024-02-29 04:02 | disposition home or self-care (01) ==
LOC: M ED 00:38
DX: R07.89 Other chest pain (principal); J84.10 Pulmonary fibrosis, unspecified; J44.9 Chronic obstructive pulmonary disease, unspecified; I25.10 Atherosclerotic heart disease of native coronary artery without angina pectoris; I25.2 Old myocardial infarction; E11.9 Type 2 diabetes mellitus without complications; I10 Essential (primary) hypertension; Z95.5 Presence of coronary angioplasty implant and graft; K21.9 Gastro-esophageal reflux disease without esophagitis; K43.9 Ventral hernia without obstruction or gangrene; Z79.01 Long term (current) use of anticoagulants; Z79.899 Other long term (current) drug therapy; Z88.8 Allergy status to other drugs, medicaments and biological substances; Z88.1 Allergy status to other antibiotic agents; Z91.030 Bee allergy status

== ENCOUNTER → 2024-03-19 | Outpatient (CLI) | payer MEDICARE, BC ==
[~2024-03-19] MED LIST changes: -DOXY-323 PO; +DOXY-441 PO
== END ==
LOC: M PLAIMG 13:01
PROVIDERS: ATTEND Psychiatry & Neurology Neurology
DX: I63.09 Cerebral infarction due to thrombosis of other precerebral artery (principal); Z86.16 Personal history of COVID-19; I65.23 Occlusion and stenosis of bilateral carotid arteries; I67.2 Cerebral atherosclerosis

== ENCOUNTER → 2024-05-07 | Outpatient (CLI) | payer MEDICARE, BC | LOC: M ADAMS 15:20 | PROVIDERS: ATTEND Family Medicine | DX: I51.7 Cardiomegaly (principal); Z95.0 Presence of cardiac pacemaker; I27.20 Pulmonary hypertension, unspecified; R91.8 Other nonspecific abnormal finding of lung field ==

== ENCOUNTER → 2024-05-07 | Outpatient (REF) | payer MEDICARE, BC ==
[2024-05-07 19:34] LABS: BASO % 0.3 % (0.0-1.0); EOS # 0.6 10^3/uL (0.0-0.5); HEMATOCRIT 40.8 % (42.0-52.0); HEMOGLOBIN 12.9 g/dl (13.5-17.5); LYMPH # 0.5 10^3/uL (1.5-5.0); LYMPH % 8.4 % (24.0-44.0); MEAN CORPUSCULAR HEMOGLOBIN 29.5 pg (27.0-33.0); MEAN CORPUSCULAR HGB CONC 31.6 g/dl (32.0-36.5); MEAN CORPUSCULAR VOLUME 93.2 fl (80.0-96.0); MONO # 1.2 10^3/uL (0.0-0.8); MONO % 18.5 % (2.0-8.0); NEUTROPHILS # 3.9 10^3/uL (1.5-8.5); PLATELET COUNT, AUTOMATED 338 10^3/uL (150-450); RED BLOOD COUNT 4.38 10^6/uL (4.30-6.10); WHITE BLOOD COUNT 6.2 10^3/uL (4.0-10.0)
[2024-05-07 19:57] LABS: HEMOGLOBIN A1c 6.2 % (4.0-6.0)
[2024-05-07 20:00] LABS: ALBUMIN 3.2 G/DL (3.2-5.2); ALKALINE PHOSPHATASE 104 U/L (40-129); ALT/SGPT 30 U/L (7.0-40); AST/SGOT 37 U/L (<34); BILIRUBIN,TOTAL 0.3 MG/DL (0.3-1.2); BLOOD UREA NITROGEN 21 MG/DL (9-23); CALCIUM LEVEL 9.2 MG/DL (8.3-10.6); CARBON DIOXIDE LEVEL 30 MMOL/L (20-31); CHLORIDE LEVEL 99 MMOL/L (98-107); CHOLESTEROL LEVEL 112 MG/DL (<200); CHOLESTEROL RISK RATIO 3.64 (<5); CREATININE FOR GFR 0.79 MG/DL (0.70-1.30); GLOMERULAR FILTRATION RATE > 60.0 (>42); GLUCOSE, FASTING 105 MG/DL (74-106); HDL CHOLESTEROL 30.7 MG/DL (>40); LDL CHOLESTEROL 54.1 MG/DL (<100); NON-HDL-C 81.3 MG/DL; SODIUM LEVEL 135 MMOL/L (136-145); THYROID STIMULATING HORMONE 3.795 uIU/ML (0.55-4.78); TOTAL PROTEIN 7.6 G/DL (5.7-8.2); TRIGLYCERIDES LEVEL 136 MG/DL (<150)
[2024-05-07 20:02] LABS: FREE T4 1.28 NG/DL (0.89-1.76)
== END ==
LOC: M SFHCADAM 15:08
PROVIDERS: ATTEND Family Medicine
DX: I10 Essential (primary) hypertension (principal); E78.5 Hyperlipidemia, unspecified; R73.03 Prediabetes; C81.10 Nodular sclerosis Hodgkin lymphoma, unspecified site; C73 Malignant neoplasm of thyroid gland

== ENCOUNTER 2024-05-15 10:09 | Emergency (ER) | payer MEDICARE, BC ==
[~2024-05-15] VITALS: Ht 170.2 cm; Wt 72.7 kg
[2024-05-15 10:15] VITALS: TEMP 96.9
[2024-05-15] MEDS: ACETAMINOPHEN *IV* 1,000 MG in IV 1 EA IV ONE (10:53)
[2024-05-15 11:15] LABS: BASO % 0.2 % (0.0-1.0); CK-MB VALUE MASS < 1.0 NG/ML (<3.6); EOS # 0.3 10^3/uL (0.0-0.5); EOS % 5.4 % (0.0-3.0); HEMATOCRIT 39.4 % (42.0-52.0); LYMPH # 0.4 10^3/uL (1.5-5.0); LYMPH % 6.9 % (24.0-44.0); MEAN CORPUSCULAR HEMOGLOBIN 29.3 pg (27.0-33.0); MEAN CORPUSCULAR VOLUME 88.7 fl (80.0-96.0); MONO # 0.9 10^3/uL (0.0-0.8); MONO % 15.4 % (2.0-8.0); NEUTROPHILS # 4.3 10^3/uL (1.5-8.5); NEUTROPHILS % 71.3 % (36.0-66.0); PLATELET COUNT, AUTOMATED 247 10^3/uL (150-450); RED BLOOD COUNT 4.44 10^6/uL (4.30-6.10); WHITE BLOOD COUNT 6.1 10^3/uL (4.0-10.0)
[2024-05-15 11:16] LABS: LIPASE 28 U/L (12-53)
[2024-05-15 11:17] LABS: CPK CREATINE PHOSPHOKINASE 31 U/L (46-171); MB/CK RELATIVE INDEX 3.22 (< OR =4)
[2024-05-15 11:18] LABS: ALBUMIN 3.2 G/DL (3.2-5.2); ALKALINE PHOSPHATASE 108 U/L (40-129); ALT/SGPT 32 U/L (7.0-40); AST/SGOT 42 U/L (<34); BILIRUBIN,DIRECT 0.2 MG/DL (<0.4); BILIRUBIN,TOTAL 0.4 MG/DL (0.3-1.2); BLOOD UREA NITROGEN 16 MG/DL (9-23); CALCIUM LEVEL 8.9 MG/DL (8.3-10.6); CARBON DIOXIDE LEVEL 28 MMOL/L (20-31); CHLORIDE LEVEL 102 MMOL/L (98-107); CREATININE FOR GFR 0.65 MG/DL (0.70-1.30); GLOMERULAR FILTRATION RATE > 60.0 (>42); GLUCOSE, FASTING 169 MG/DL (74-106); POTASSIUM SERUM 4.2 MMOL/L (3.5-5.1); SODIUM LEVEL 134 MMOL/L (136-145); TOTAL PROTEIN 7.5 G/DL (5.7-8.2)
[2024-05-15 11:20] LABS: INR 1.15; THYROID STIMULATING HORMONE 2.836 uIU/ML (0.55-4.78)
[2024-05-15] MEDS ORDERED: ISOVUE-370 76% 100ML VIAL As Ordered ONE (11:29)
[2024-05-15 11:56] LABS: CK-MB VALUE MASS < 1.0 NG/ML (<3.6)
[2024-05-15 11:57] LABS: CPK CREATINE PHOSPHOKINASE 25 U/L (46-171)
[2024-05-15] MEDS: PANTOPRAZOLE 40MG VIAL IV ONE (12:24)
[2024-05-15] MEDS: SUCRALFATE SUSP 1GM/10ML UD PO ONE (12:25)
[2024-05-15] MEDS: METOCLOPRAMIDE INJ 10MG/2ML VIAL IV ONE (12:43)
[2024-05-15 13:00] VITALS: BP 132/78
[2024-05-15 14:09] VITALS: O2SAT 98
[2024-05-15] MEDS ORDERED: CARA1TAB6 PO (14:11)
[2024-05-15] MEDS ORDERED: REGL5TAB2 PO (14:11)
[2024-05-15] MEDS ORDERED: PROT1TAB2 PO (14:11)
== END 2024-05-15 14:28 | disposition home or self-care (01) ==
LOC: M ED 10:09
DX: R10.9 Unspecified abdominal pain (principal); K80.20 Calculus of gallbladder without cholecystitis without obstruction; I25.10 Atherosclerotic heart disease of native coronary artery without angina pectoris; Z95.5 Presence of coronary angioplasty implant and graft; Z95.0 Presence of cardiac pacemaker; Z85.850 Personal history of malignant neoplasm of thyroid; Z79.01 Long term (current) use of anticoagulants; Z79.899 Other long term (current) drug therapy; Z88.8 Allergy status to other drugs, medicaments and biological substances; Z91.030 Bee allergy status
CPT/HCPCS: 36415; 71045; 71275; 74177; 80048; 80076; 82550; 82553; 83690; 84443; 84484; 85025; 85610; 93005; 93041; 94760; 96365; 96375; 99285; J0131; J2470; J2765; Q9967

== ENCOUNTER → 2024-05-27 | Outpatient (CLI) | payer MEDICARE, BC ==
[~2024-05-27] MED LIST changes: +CARA1TAB6 PO; +REGL5TAB2 PO
== END ==
LOC: M RAD 14:36
PROVIDERS: ATTEND Family Medicine
DX: L76.82 Other postprocedural complications of skin and subcutaneous tissue (principal)

== ENCOUNTER 2024-07-09 18:20 | Inpatient (IN) | payer MEDICARE, BC ==
[~2024-07-09] VITALS: Ht 170.2 cm; Wt 69.0 kg
[2024-07-09] MEDS ORDERED: METO1TAB87 PO (18:39)
[2024-07-09 19:33] LABS: BASO % 0.2 % (0.0-1.0); EOS # 0.3 10^3/uL (0.0-0.5); EOS % 3.5 % (0.0-3.0); HEMATOCRIT 38.7 % (42.0-52.0); HEMOGLOBIN 12.8 g/dl (13.5-17.5); LYMPH # 0.4 10^3/uL (1.5-5.0); LYMPH % 4.4 % (24.0-44.0); MEAN CORPUSCULAR HEMOGLOBIN 28.9 pg (27.0-33.0); MEAN CORPUSCULAR HGB CONC 33.1 g/dl (32.0-36.5); MEAN CORPUSCULAR VOLUME 87.4 fl (80.0-96.0); MONO # 1.4 10^3/uL (0.0-0.8); NEUTROPHILS # 7.1 10^3/uL (1.5-8.5); NEUTROPHILS % 76.3 % (36.0-66.0); PLATELET COUNT, AUTOMATED 284 10^3/uL (150-450); RED BLOOD COUNT 4.43 10^6/uL (4.30-6.10); WHITE BLOOD COUNT 9.3 10^3/uL (4.0-10.0)
[2024-07-09 19:57] LABS: CK-MB VALUE MASS < 1.0 NG/ML (<3.6)
[2024-07-09 20:00] LABS: ALKALINE PHOSPHATASE 95 U/L (40-129); ALT/SGPT 23 U/L (7.0-40); AST/SGOT 34 U/L (<34); BILIRUBIN,DIRECT 0.2 MG/DL (<0.4); BILIRUBIN,TOTAL 0.5 MG/DL (0.3-1.2); BLOOD UREA NITROGEN 13 MG/DL (9-23); CALCIUM LEVEL 8.3 MG/DL (8.3-10.6); CARBON DIOXIDE LEVEL 29 MMOL/L (20-31); CHLORIDE LEVEL 101 MMOL/L (98-107); CPK CREATINE PHOSPHOKINASE 46 U/L (46-171); CREATININE FOR GFR 0.58 MG/DL (0.70-1.30); GLOMERULAR FILTRATION RATE > 60.0 (>42); GLUCOSE, FASTING 119 MG/DL (74-106); MB/CK RELATIVE INDEX 2.17 (< OR =4); POTASSIUM SERUM 4.1 MMOL/L (3.5-5.1); SODIUM LEVEL 131 MMOL/L (136-145); THYROID STIMULATING HORMONE 2.154 uIU/ML (0.55-4.78); TOTAL PROTEIN 7.9 G/DL (5.7-8.2)
[2024-07-09] MEDS ORDERED: ISOVUE-370 76% 100ML VIAL As Ordered ONE (20:45)
[2024-07-09 21:18] LABS: CK-MB VALUE MASS 1.3 NG/ML (<3.6)
[2024-07-09 21:19] LABS: MB/CK RELATIVE INDEX 2.54 (< OR =4)
[2024-07-09] MEDS: FUROSEMIDE 20MG/2ML VIAL IV ONE (22:43)
[2024-07-09] MEDS: SODIUM CHLORIDE 0.9% INJ 10 ML SYR IV SCH (22:48)
[2024-07-09] MEDS ORDERED: HOME MED LIST COMPLETE! XX SCH (22:50)
[2024-07-09] MEDS: FUROSEMIDE 20MG/2ML VIAL IV SCH (23:54)
[2024-07-09] MEDS ORDERED: NITROGLYCERIN 0.4MG SUBL TABLET SL PRN (23:55)
[2024-07-10] MEDS: APIXABAN 5 MG TAB (ELIQUIS) PO SCH (00:50)
[2024-07-10] MEDS: ATORVASTATIN 20 MG TAB PO SCH (00:50)
[2024-07-10] MEDS: cefTRIAXone SOD 1 GM in DEXTROSE 5% (D5W) ADV/MINI-BAG 50 ML IV SCH (00:51)
[2024-07-10] MEDS: DOXYCYCLINE HYCLATE 100 MG in DEXTROSE 5% (D5W) MINI-BAG PLU 100 ML IV SCH (01:25)
[2024-07-10 02:10] VITALS: BP 121/75; TEMP 97.9; O2SAT 96
[2024-07-10 04:05] VITALS: BP 117/74; TEMP 97.7; O2SAT 93
[2024-07-10] MEDS: guaiFENesin DM LIQ 10ML UD PO PRN (06:08)
[2024-07-10 06:18] LABS: HEMATOCRIT 39.7 % (42.0-52.0); HEMOGLOBIN 13.1 g/dl (13.5-17.5); MEAN CORPUSCULAR VOLUME 87.8 fl (80.0-96.0); PLATELET COUNT, AUTOMATED 295 10^3/uL (150-450); RED BLOOD COUNT 4.52 10^6/uL (4.30-6.10); WHITE BLOOD COUNT 8.3 10^3/uL (4.0-10.0)
[2024-07-10 06:39] LABS: ALKALINE PHOSPHATASE 95 U/L (40-129); ALT/SGPT 21 U/L (7.0-40); AST/SGOT 32 U/L (<34); BILIRUBIN,TOTAL 0.7 MG/DL (0.3-1.2); BLOOD UREA NITROGEN 13 MG/DL (9-23); CALCIUM LEVEL 8.9 MG/DL (8.3-10.6); CARBON DIOXIDE LEVEL 30 MMOL/L (20-31); CHLORIDE LEVEL 101 MMOL/L (98-107); GLOMERULAR FILTRATION RATE > 60.0 (>42); GLUCOSE, FASTING 106 MG/DL (74-106); POTASSIUM SERUM 3.9 MMOL/L (3.5-5.1); SODIUM LEVEL 135 MMOL/L (136-145); TOTAL PROTEIN 7.9 G/DL (5.7-8.2)
[2024-07-10 06:46] LABS: PROCALCITONIN 0.12 ng/ml
[2024-07-10] MEDS: CLOPIDOGREL 75 MG TAB PO SCH (08:24)
[2024-07-10] MEDS: LOSARTAN 25 MG TAB PO SCH (08:25)
[2024-07-10] MEDS: METOPROLOL TART 12.5 MG PER 1/2 TAB PO SCH (08:25)
[2024-07-10] MEDS ORDERED: VARIBAR NECTAR 40% w/v 240ML SUSP BTL As Ordered ONE (11:44)
[2024-07-10] MEDS ORDERED: VARIBAR PUDDING 40% w/v 230ML TUBE As Ordered ONE (11:44)
[2024-07-10] MEDS ORDERED: BARIUM SULFATE 700 MG TABLET (E-Z-DISK) As Ordered ONE (11:45)
[2024-07-10] MEDS ORDERED: E-Z-PAQUE 96% w/w SUSP 176GM BTL As Ordered ONE (11:45)
[2024-07-10 12:45] VITALS: BP 105/75; TEMP 97.7; O2SAT 97
[2024-07-10] MEDS: methylPREDNISolone 125MG 2ML VIAL IV ONE (17:14)
[2024-07-10] MEDS: POTASSIUM CHLORIDE 10MEQ SR TABLET PO ONE (18:01)
[2024-07-10] MEDS: AMIODARONE 200 MG TAB (PACERONE) PO SCH (18:01)
[2024-07-10 18:17] LABS: MAGNESIUM LEVEL 1.7 MG/DL (1.8-2.4)
[2024-07-10] MEDS: MAG SULF 1GM/100ML (MAG RUN) 1 GM in IV 1 EA IV SCH (18:46)
[2024-07-10 19:59] VITALS: BP 114/74; TEMP 97.9; O2SAT 94
[2024-07-10] MEDS: methylPREDNISolone 125MG 2ML VIAL IV SCH (23:27)
[2024-07-11 04:37] VITALS: BP 113/71; TEMP 97.3; O2SAT 98
[2024-07-11 05:22] LABS: HEMATOCRIT 39.8 % (42.0-52.0); MEAN CORPUSCULAR HGB CONC 32.7 g/dl (32.0-36.5); MEAN CORPUSCULAR VOLUME 88.6 fl (80.0-96.0); PLATELET COUNT, AUTOMATED 296 10^3/uL (150-450); RED BLOOD COUNT 4.49 10^6/uL (4.30-6.10); WHITE BLOOD COUNT 6.1 10^3/uL (4.0-10.0)
[2024-07-11 05:52] LABS: BLOOD UREA NITROGEN 21 MG/DL (9-23); CALCIUM LEVEL 8.5 MG/DL (8.3-10.6); CARBON DIOXIDE LEVEL 26 MMOL/L (20-31); CHLORIDE LEVEL 102 MMOL/L (98-107); CREATININE FOR GFR 0.57 MG/DL (0.70-1.30); GLOMERULAR FILTRATION RATE > 60.0 (>42); GLUCOSE, FASTING 177 MG/DL (74-106); MAGNESIUM LEVEL 2.2 MG/DL (1.8-2.4); POTASSIUM SERUM 4.4 MMOL/L (3.5-5.1); SODIUM LEVEL 134 MMOL/L (136-145)
[2024-07-11] MEDS ORDERED: AMIODARONE 200 MG TAB (PACERONE) PO SCH (09:00)
[2024-07-11 12:00] VITALS: BP 108/69; TEMP 97.7; O2SAT 96
[2024-07-11 20:00] VITALS: BP 129/79; TEMP 97.7; O2SAT 96
[2024-07-12] VITALS (14 sets, daily range): BP systolic 111–127; BP diastolic 69–78; TEMP 96.5–97.7; O2SAT 83–96
[2024-07-12] MEDS: ALBUTEROL SULFATE 2.5MG/0.5ML INH NEB SOLN INH PRN (01:30)
[2024-07-12] MEDS: SODIUM CHLORIDE 0.9% INJ 10 ML SYR IV PRN (02:51)
[2024-07-12 06:42] LABS: HEMOGLOBIN 12.3 g/dl (13.5-17.5); MEAN CORPUSCULAR HEMOGLOBIN 29.1 pg (27.0-33.0); MEAN CORPUSCULAR HGB CONC 33.2 g/dl (32.0-36.5); MEAN CORPUSCULAR VOLUME 87.7 fl (80.0-96.0); PLATELET COUNT, AUTOMATED 328 10^3/uL (150-450); RED BLOOD COUNT 4.22 10^6/uL (4.30-6.10); WHITE BLOOD COUNT 27.5 10^3/uL (4.0-10.0)
[2024-07-12 07:43] LABS: BLOOD UREA NITROGEN 27 MG/DL (9-23); CALCIUM LEVEL 8.6 MG/DL (8.3-10.6); CARBON DIOXIDE LEVEL 28 MMOL/L (20-31); CHLORIDE LEVEL 96 MMOL/L (98-107); CREATININE FOR GFR 0.67 MG/DL (0.70-1.30); GLOMERULAR FILTRATION RATE > 60.0 (>42); GLUCOSE, FASTING 234 MG/DL (74-106); POTASSIUM SERUM 4.3 MMOL/L (3.5-5.1); SODIUM LEVEL 133 MMOL/L (136-145)
[2024-07-12] MEDS: SODIUM CHLORIDE 0.9% INJ 10 ML SYR IV SCH (09:00)
[2024-07-12 13:46] LABS: BASO # 0.1 10^3/uL (0.0-0.2); BASO % 0.2 % (0.0-1.0); HEMATOCRIT 38.6 % (42.0-52.0); HEMOGLOBIN 12.7 g/dl (13.5-17.5); LYMPH # 0.3 10^3/uL (1.5-5.0); LYMPH % 0.9 % (24.0-44.0); MEAN CORPUSCULAR HEMOGLOBIN 28.9 pg (27.0-33.0); MEAN CORPUSCULAR HGB CONC 32.9 g/dl (32.0-36.5); MEAN CORPUSCULAR VOLUME 87.7 fl (80.0-96.0); MONO # 0.9 10^3/uL (0.0-0.8); NEUTROPHILS % 94.7 % (36.0-66.0); PLATELET COUNT, AUTOMATED 386 10^3/uL (150-450); WHITE BLOOD COUNT 28.5 10^3/uL (4.0-10.0)
[2024-07-12 14:53] LABS: C REACTIVE PROTEIN QUANTITATIV 3.86 MG/DL (<1.0)
[2024-07-12 15:01] LABS: PROCALCITONIN 0.3 ng/ml
[2024-07-12] MEDS: NS 250 ML IV ONE (22:10)
[2024-07-13 01:00] VITALS: TEMP 96.5
[2024-07-13 01:03] VITALS: TEMP 96.7; O2SAT 96
[2024-07-13 01:06] VITALS: TEMP 98
[2024-07-13] MEDS: NS 500 ML IV ONE (02:19)
[2024-07-13 04:15] VITALS: BP 127/77; TEMP 97.5; O2SAT 97
[2024-07-13 07:15] LABS: HEMATOCRIT 36.1 % (42.0-52.0); HEMOGLOBIN 11.6 g/dl (13.5-17.5); MEAN CORPUSCULAR HEMOGLOBIN 28.9 pg (27.0-33.0); MEAN CORPUSCULAR HGB CONC 32.1 g/dl (32.0-36.5); MEAN CORPUSCULAR VOLUME 89.8 fl (80.0-96.0); PLATELET COUNT, AUTOMATED 307 10^3/uL (150-450); RED BLOOD COUNT 4.02 10^6/uL (4.30-6.10)
[2024-07-13 07:46] LABS: BLOOD UREA NITROGEN 23 MG/DL (9-23); CALCIUM LEVEL 8.3 MG/DL (8.3-10.6); CARBON DIOXIDE LEVEL 32 MMOL/L (20-31); CHLORIDE LEVEL 101 MMOL/L (98-107); CREATININE FOR GFR 0.63 MG/DL (0.70-1.30); GLOMERULAR FILTRATION RATE > 60.0 (>42); GLUCOSE, FASTING 130 MG/DL (74-106); POTASSIUM SERUM 4.5 MMOL/L (3.5-5.1); SODIUM LEVEL 138 MMOL/L (136-145)
[2024-07-13 09:55] VITALS: BP 126/77
[2024-07-13 12:00] VITALS: BP 132/79; TEMP 97.9; O2SAT 97
[2024-07-13] MEDS ORDERED: AMOX875T2 PO (15:28)
[2024-07-13] MEDS ORDERED: DOXY-440 PO (15:28)
== END 2024-07-13 18:02 | disposition home health service (06) | DRG 189 ==
LOC: EDBD 18:20 → M ED 18:20 → M ED INP 23:07 → M MSPAV 07-10 01:58
PROVIDERS: ADMIT Student in an Organized Health Care Education/Training Program; ATTEND Student in an Organized Health Care Education/Training Program
PROC: B246ZZZ Ultrasonography of Right and Left Heart (ICD-10-PCS; principal; 2024-07-11)
DX: J96.01 Acute respiratory failure with hypoxia (principal); J69.0 Pneumonitis due to inhalation of food and vomit; I50.42 Chronic combined systolic (congestive) and diastolic (congestive) heart failure; J84.9 Interstitial pulmonary disease, unspecified; E87.1 Hypo-osmolality and hyponatremia; R13.10 Dysphagia, unspecified; I48.0 Paroxysmal atrial fibrillation; I25.2 Old myocardial infarction; J44.9 Chronic obstructive pulmonary disease, unspecified; K21.9 Gastro-esophageal reflux disease without esophagitis; I25.10 Atherosclerotic heart disease of native coronary artery without angina pectoris; E11.9 Type 2 diabetes mellitus without complications; E78.00 Pure hypercholesterolemia, unspecified; Z86.73 Personal history of transient ischemic attack (TIA), and cerebral infarction without residual deficits; Z85.038 Personal history of other malignant neoplasm of large intestine; Z90.49 Acquired absence of other specified parts of digestive tract; Z90.79 Acquired absence of other genital organ(s); Z95.0 Presence of cardiac pacemaker; Z95.5 Presence of coronary angioplasty implant and graft; Z87.891 Personal history of nicotine dependence; Z85.46 Personal history of malignant neoplasm of prostate; Z92.3 Personal history of irradiation; Z92.21 Personal history of antineoplastic chemotherapy; Z85.850 Personal history of malignant neoplasm of thyroid; Z79.01 Long term (current) use of anticoagulants; Z79.899 Other long term (current) drug therapy; Z88.1 Allergy status to other antibiotic agents; Z88.6 Allergy status to analgesic agent; Z91.030 Bee allergy status

== ENCOUNTER → 2025-03-25 | Outpatient (REF) | payer MEDICARE, BC ==
[~2025-03-25] MED LIST changes: -AMIO200T49 PO; +AMIO200T54 PO; +DOXY-440 PO; +DOXY-442 PO; -DOXY100C82 PO; +METO1TAB87 PO; -NYST-13 TOP; +NYST0.1C TOP
== END ==
LOC: M SFHCADAM 12:21
PROVIDERS: ATTEND Family Medicine
DX: Z53.9 Procedure and treatment not carried out, unspecified reason (principal)

== ENCOUNTER → 2025-03-25 | Outpatient (CLI) | payer MEDICARE, BC ==
[2025-03-25 19:29] LABS: PLATELET COUNT, AUTOMATED 280 10^3/uL (150-450)
[2025-03-25 19:47] LABS: ALT/SGPT 20 U/L (7.0-40); AST/SGOT 36 U/L (<34); CALCIUM LEVEL 9.4 MG/DL (8.3-10.6); CARBON DIOXIDE LEVEL 31 MMOL/L (20-31); CHLORIDE LEVEL 99 MMOL/L (98-107); CREATININE FOR GFR 0.81 MG/DL (0.70-1.30); GLOMERULAR FILTRATION RATE > 90.0 (>42); POTASSIUM SERUM 4.7 MMOL/L (3.5-5.1); SODIUM LEVEL 139 MMOL/L (136-145)
[2025-03-25 19:49] LABS: FREE T4 1.17 NG/DL (0.89-1.76)
== END ==
LOC: M WUC 15:28
PROVIDERS: ATTEND Family Medicine
DX: C73 Malignant neoplasm of thyroid gland (principal); I50.20 Unspecified systolic (congestive) heart failure

== ENCOUNTER → 2025-06-04 | Outpatient (CLI) | payer MEDICARE, BC | LOC: M WUC 11:06 | PROVIDERS: ATTEND Student in an Organized Health Care Education/Training Program | DX: M25.521 Pain in right elbow (principal) ==